=== PATIENT | male | born 1955 | race Caucasian/White ===

== ENCOUNTER 2017-04-03 11:38 | Day surgery (SDC) | payer OTHER ==
[~2017-04-03] VITALS: Ht 177.8 cm; Wt 124.0 kg
[~2017-04-03 11:38] MED LIST: ASPI1TAB7 PO; ISOS60 PO; LIPI80TA16 PO; LISI-357 PO; METO25 PO; NITR0.4S SL; PROT40TA PO
[2017-04-03] MEDS ORDERED: NS 1000P @30 MLS/HR (KVO) IV SCH (12:00)
[2017-04-03 12:27] VITALS: BP 123/78; PULSE 82; RESP 18; O2SAT 96
[2017-04-03 12:29] LABS: AUTOMATED NEUTROPHIL # 4.3 TH/MM3 (1.8-7.7); BASOPHIL % 0.4 % (0.0-2.0); EOSINOPHIL # 0.1 TH/MM3 (0-0.4); EOSINOPHIL % 1.8 % (0.0-4.0); HEMO FLAGS DIFF FINAL; LYMPH % 28.1 % (9.0-44.0); MEAN CELL VOLUME 83.6 FL (80.0-100.0); MEAN CORPUSCULAR HEMOGLOBIN 28.3 PG (27.0-34.0); MEAN CORPUSCULAR HGB CONC 33.9 % (32.0-36.0); MONO % 9.2 % (0.0-8.0); NEUT % 60.5 % (16.0-70.0); PLATELET COUNT 176 TH/MM3 (150-450); RED BLOOD COUNT 5.38 MIL/MM3 (4.50-5.90); RED CELL DISTRIBUTION WIDTH 13.8 % (11.6-17.2); WHITE BLOOD COUNT 7.1 TH/MM3 (4.0-11.0)
[2017-04-03] MEDS ORDERED: NITR1SUB3 SL (12:37)
[2017-04-03] MEDS ORDERED: ISOS120T PO (12:37)
[2017-04-03] MEDS ORDERED: HYDR-3516 PO (12:37)
[2017-04-03] MEDS ORDERED: COZA25TA PO (12:37)
[2017-04-03] MEDS ORDERED: ASPI81TA11 PO (12:37)
[2017-04-03] MEDS ORDERED: METO50TA PO (12:37)
[2017-04-03] MEDS ORDERED: LIPI40TA PO (12:37)
[2017-04-03 12:38] LABS: APTT (PATIENT) 28.7 SEC (24.3-30.1); PROTHROMBIN TIME - PATIENT 10.8 SEC (9.8-11.6)
[2017-04-03 12:53] LABS: BICARBONATE 28.7 MEQ/L (21.0-32.0); POTASSIUM 4.5 MEQ/L (3.5-5.1)
[2017-04-03] MEDS ORDERED: MIDAZOLAM HCL 2 MG/2 ML VIAL ONE ×2 (13:29→14:17)
[2017-04-03] MEDS ORDERED: HEPARIN-NS/PF INJ 500 ML ONE (13:29)
[2017-04-03] MEDS ORDERED: IOHEXOL 350 MG/ML 100 ML BTL (for Cath Lab) OTHER ONE (14:50)
--- NOTE | 2017-04-03 15:00 | CATHPROC ---
Summize HIS Report Study Information Study Number Admission Scheduled Start Study Start 1005-17 04/03/2017 04/03/2017 Apr 03 2017 1:30PM Study Type [place] Service Left Heart Cath Cardiac Catheterization Referring Institution Admit Source Facility Department 1 Other [facility] Compliance Manager Physician and Clinical Staff Initial Grey Desai Tear Down Matcher Lilliana Kahn,TORI Other Christy Rivera RN Recorder Aixa Maier,RT(R) Scrub Zafar Nj RCIS(BS) Procedures Performed Procedure Location (Site) Vessel Name Angiogram LV LV Ventricle Coronary Angiograms LCA Left Coronary Coronary Angiograms RCA Right Coronary Coronary Angiograms MCNEIL-LAD Left Coronary Coronary Angiograms SVG-OM CIRC Coronary Angiograms Gft. Stump 1 SVG Graft Coronary Angiograms Gft. Stump 2 SVG Graft Wire insertion Fem Art (right) Femoral Art Wire insertion Fem Vein (right) Femoral Vein Equipment Time Vocational Rehabilitation Counselor Description Size Mfg Part Number Used/Scraped [id number] 13:39 PATE RIVERA SWAN ALDO CATHETER FR 7 Used *[id number] TRANSDUCER, TRUWAVE 13:39 PATE RIVERA * [id number] Used W/STOCKCOCK TRANSDUCER, TRUWAVE 13:39 PATE RIVERA * [id number] Used W/STOCKCOCK [id number] 14:39 CARDIVA MEDICAL VASCADE, FR6 CLOSURE SYSTEM FR 6\7 Used *[id number] [id number] *[id number] 534-648T *[id number] 534-660T *[id number] 534-620T *[id number] 534-621T *[id number] 534-642T *[id number] 13:39 MEDLINE INDUSTRIES PACK, CCL CUSTOM * Used *[id number] 13:39 MEDLINE PACER PEN, SKIN DUAL W/ RULER * [id number] Used [id number] 13:39 Topix MEDICAL SHEATH, FR6.5 PRELUDE 11CM FR 6.5 [id number] Used *[id number] 13:39 Topix MEDICAL WIRE, 3MMJ .035 180CM 180CM Used *[id number] 14:21 Topix MEDICAL WIRE, EXCHANGE 260CM 3MMJ 260CM Used *[id number] 13:39 NAMIC MANIFOLD, 2 PORT * Used *[id number] 13:39 NAMIC MANIFOLD, 4 PORT * Used *[id number] 13:58 NYCOMED OMNIPAQUE, 350 MG, 100ML 100ML [id number] Used 13:39 NYCOMED OMNIPAQUE, 350 MG, 150ML 150ML [id number] Used [id number] 13:39 KWONG MEDICAL BLANKET,WARM AIR CCL * Used *[id number] 13:39 TERUMO MEDICAL SHEATH, FR7 TERUMO (10CM) FR 7 [id number] Used History: Current Medications Medication Dosage/Unit Route Frequency Last Date/Time Taken 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 Imdur History: Allergies Allergy Reaction No Known Allergies Lisinopril History: Risk Factors Family History of Hypertension Dyslipidemia Previous [place] Previous Heart Failure Premature CAD Yes Yes Yes Yes No Prior Valve Prior PCI Prior CABG Prior CABGDate Surgery No No Yes 09/10/2001 Cerebrovascular Peripheral Artery Chronic Lung On Dialysis Diabetes Disease Disease Disease No No No No No History: Symptoms/Diagnosis Selection Items SOB History: CV Disease Selection Items Known CAD History: Stress Tests Stress or Imaging Studies Performed No History: Other Disease Selection Items CAD HTN History: Other Current Smoker Method Quit Packs a Day Years Used Pack Years No Cigarettes 16 Years Ago 1 30 30 Labs Hgb (g/dl) Hct (%) RBC (MIL/MM3) WBC (l/cumm) Platelets (thousands) 12.00-18.00 37.00-55.00 4.80-6.20 4.80-10.80 140.00-450.00 15.2 45 5.3 7.1 176 Glucose (mg/dl) BUN (mg/dl) Creatinine (mg/dl) BUN:Creatinine (1:x) 60.00-110.00 8.00-20.00 0.10-9.00 10.00-20.00 109 18 1.1 16.4 Na (meq/l) K (meq/l) Cl (meq/l) CO2 (mmol/L) Ca (mg/dl) 138.00-146.00 3.80-5.10 101.00-111.00 23.00-30.00 9.00-10.50 140 4.9 108 28.7 9.2 PT (sec) PTT (sec) INR (PTT:PT) 9.40-11.40 25.10-32.70 0.50-2.00 10.8 28.7 1 CPK-MB (ng/ML) 0.00-7.00 Not Drawn Medication Medication Total Dose (Bolus/Oral) Medication Total Dosage/Unit 1% XYLOCAINE 20 mL RADIAL COCKTAIL 5 mL (Bolus) VERSED 3 mg Medications (Bolus/Oral) Medication Time Given Dosage/Unit Administered By Reason 1% XYLOCAINE 04/03/2017 1:58:06 PM 20 mL Grey Cormier Patient arrived on 20 mL 1% XYLOCAINE given by Grey Cormier in Right Groin via Subcutaneous. VERSED 04/03/2017 1:58:11 PM 2 mg Lilliana Kahn Patient arrived on 2 mg VERSED given by Lilliana Kahn RN via Peripheral IV. VERSED 04/03/2017 2:18:59 PM 1 mg Lilliana Kahn Patient arrived on 1 mg VERSED given by Lilliana Kahn RN via Peripheral IV. RADIAL COCKTAIL 04/03/2017 2:23:15 PM 5 mL (Bolus) Lilliana Kahn Patient arrived on 5 mL (Bolus) RADIAL COCKTAIL given by Lilliana Kahn RN via Radial. Using [Solu tion Name]. Medication (Drip) Medication Time Given Dosage/Unit Concentration/Unit Diluent (ml) Solution IV Solutions 04/03/2017 1:33:37 PM 0 mL (IV) 500 NaCl .9 Patient arrived on IV Solutions in Left Antecubital via Peripheral IV. Pump/Drip Flow = 20 ml/hr usin g NaCl .9. Initial Case Assessment Cardiovascular HR Rhythm NIBP Chest Pain 77 REG 130/79 0 Edema Present Skin color Skin None Normal Warm Circulatory - Right Pulses Dorsalis Pedis Femoral 1 1 Scale (0,1,2,3,4,d) Circulatory - Left Pulses Dorsalis Pedis Femoral 1 1 Scale (0,1,2,3,4,d) Circulatory - Lower Extremities Color Lower Right Color Lower Left Normal Normal Neurological State Oriented to time-place- Alert Moves all extremities person Respiration - General Respiration Rate SpO2 (%) (B/min) 10 98 Final Case Assessment Cardiovascular HR Rhythm NIBP Chest Pain 88 REG 120/71 0 Edema Present Skin color Skin None Normal Warm Circulatory - Right Pulses Dorsalis Pedis Femoral 1 1 Scale (0,1,2,3,4,d) Circulatory - Left Pulses Dorsalis Pedis Femoral 1 1 Scale (0,1,2,3,4,d) Circulatory - Lower Extremities Color Lower Right Color Lower Left Normal Normal Neurological State Oriented to time-place- Alert Moves all extremities person Respiration - General Respiration Rate SpO2 (%) (B/min) 20 96 Chronological Log Time Study Chronological Log 13:25:40 Patient arrived via Bed. 13:26:15 Patient Name, D.O.B, / Armband Verified By R.N. 13:27:29 Pre-op and post- op instructions given; patient acknowledges understanding of instructions. 13:28:34 Verbal Stimulation=2 Physical Stimulation=2 Airway=2 Respiration=2 TOTAL=8. (0=absent, 1=li mited, 2=present) 13:28:41 Patient has been NPO for More than 6Hrs. 13:29:45 Skin Breakdown- Vitals capture started with the following parameters, Patient=Adult, Interval=5 min, Initial Pr ealyyz=764 mmHg, 13:32:15 Deflation Rate=5 mmHg 13:32:20 Patient Warmer Placed on the Table. 13:32:26 A # 20 IV was noted in the Antecubital (left). Grade = 0 13:32:52 HR=81 bpm, MYYY=176/79 mmhg, SpO2=98.0 %, Resp=14 B/min, Pain=0, Hortencia=10, Carrillo=2 13:33:37 Patient arrived on IV Solutions in Left Antecubital via Peripheral IV. Pump/Drip Flow = 20 ml/hr using NaCl .9. 13:34:27 History and physical on the chart or being dictated. Assessment: Initial Case, HR=77 BPM, Rhythm=REG, SRTC=310/79 mmhg, Chest Pain=0, Edema=None, Color=Normal, Skin = Warm Right Pulses: Ramos Ped=1, Femoral=1 Left Pulses: Ramso Ped=1, Femoral=1 13:34:30 Lower Right Extremities: Color=Normal Lower Left Extremities: Color=Normal Neurological: State=Alert, Ox3, GRAY Respiration: Resp=10 B/min, SpO2=98 % 13:34:33 Reference ECG taken 13:36:53 Bilateral groins prepped with 2% chlorhexidine, and with a 3 min. waiting time. 13:37:51 HR=77 bpm, BVRZ=926/72 mmhg, SpO2=98.0 %, Resp=12 B/min, Pain=0, Hortencia=10, Carrillo=2 13:40:15 Pressure channel 1 zeroed. 13:42:45 Pressure channel 2 zeroed. 13:42:50 HR=77 bpm, ILSS=283/77 mmhg, SpO2=98.0 %, Resp=11 B/min, Pain=0, Hortencia=10, Carrillo=2 13:45:22 MD arrived. 13:47:51 HR=78 bpm, OAWI=496/74 mmhg, SpO2=98.0 %, Resp=14 B/min, Pain=0, Hortencia=10, Carrillo=2 13:50:58 MD paged 13:52:48 HR=81 bpm, PHRL=514/75 mmhg, SpO2=97.0 %, Resp=12 B/min, Pain=0, Hortencia=10, Carrillo=2 Time Out. Correct patient, correct procedure,correct physician, ,power injector not loaded with contrast with surgical 13:57:20 team present. Time Out Concurred by MD, individual staff and BLOOD BANK SPECIALIST in procedure Time Out #2 - Consents verified, patient in correct position, all results are labled and displa yed, safety precautions 13:57:23 taken. Time Out concurred by MD, individual staff and BLOOD BANK SPECIALIST in procedure. 13:57:44 Case Start 13:57:51 HR=78 bpm, PNDC=607/79 mmhg, SpO2=97.0 %, Resp=9 B/min, Pain=0, Hortencia=10, Carrillo=2 13:58:06 Patient arrived on 20 mL 1% XYLOCAINE given by Grey Cormier in Right Groin via Subcutaneous . 13:58:11 Patient arrived on 2 mg VERSED given by Lilliana Kahn, TORI via Peripheral IV. 14:00:33 Access site was Right Femoral Artery. 14:00:38 A wire was inserted via Fem Art (right). 14:00:42 A SHEATH, FR6.5 PRELUDE 11CM FR 6.5 was advanced into the Fem Art (right) using the Percuta neous technique. 14:01:10 Access site was Right Femoral Vein. 14:01:15 A wire was inserted via Fem Vein (right). 14:01:32 A SHEATH, FR7 TERUMO (10CM) FR 7 was advanced into the Fem Vein (right) using the Percutane ous technique. 14:02:03 A SWAN ALDO CATHETER FR 7 was inserted via Fem Vein (right) 14:02:52 HR=84 bpm, GQZV=020/76 mmhg, SpO2=98.0 %, Resp=11 B/min, Pain=0, Hortencia=10, Carrillo=2 Recorded Pressure: PCW, HR=85, Condition=Condition 1 14:02:56 (Pulmonary Capillary Wedge) PCW 23/10/10 Recorded Pressure: MPA, HR=79, Condition=Condition 1 14:03:11 (Main Pulmonary Artery) MPA 14:03:39 Saturation: Site=PA (Pulmonary Artery) , O2=79 %, Hgb=15.2 gm/dl, Condition=Condition 1. Us ed in calculation. Thermo CO: CO=6.1 l/m, HR=80 bpm, Condition=Condition 1. Used in calculation. 14:04:22 Equipment: Description and Size=SWAN ALDO CATHETER FR 7, Type=Bath Probe, CC=0.579 Injectant: Temp=19.0 - 22.0 Celsius, Volume=10.0 ml Thermo CO: CO=6.0 l/m, HR=81 bpm, Condition=Condition 1. Used in calculation. 14:04:58 Equipment: Description and Size=SWAN ALDO CATHETER FR 7, Type=Bath Probe, CC=0.579 Injectant: Temp=19.0 - 22.0 Celsius, Volume=10.0 ml 14:05:12 Saturation: Site=Ao (Aorta) , O2=94.5 %, Hgb=15.2 gm/dl, Condition=Condition 1. Used in rohit culation. Thermo CO: CO=6.0 l/m, HR=81 bpm, Condition=Condition 1. Used in calculation. 14:05:52 Equipment: Description and Size=SWAN ALDO CATHETER FR 7, Type=Bath Probe, CC=0.579 Injectant: Temp=19.0 - 22.0 Celsius, Volume=10.0 ml Recorded Pressure: RV, HR=85, Condition=Condition 1 14:06:41 (Right Ventricle) RV 30//6 Recorded Pressure: RA, HR=82, Condition=Condition 1 14:06:56 (Right Atrium) RA 97/5 14:07:36 Saturation: Site=RA (Right Atrium) , O2=77.6 %, Hgb=15.2 gm/dl, Condition=Condition 1. Used in calculation. 14:07:51 HR=78 bpm, VZUQ=768/66 mmhg, SpO2=96.0 %, Resp=17 B/min, Pain=0, Hortencia=10, Carrillo=2 14:07:55 Forest Aldo Catheter Removed A JL 4.0 INFINITI CATHETER FR 6 was advanced over a wire. OMNIPAQUE, 350 MG, 150ML 150ML was us ed for 14:08:53 injections. Recorded Pressure: Ao, HR=83, Condition=Condition 1 14:09:36 (Aorta) Ao 101/64/79 14:09:51 The LCA was injected and visualized at various angles. OMNIPAQUE, 350 MG, 150ML 150ML used . 14:10:25 POWER INJECTOR LOADED NOW BY Malinda KAHN AND VERIFIED BY Leah NJ 14:11:00 Catheter was removed A 3DRC INFINITI CATHETER FR 6 was advanced over a wire. OMNIPAQUE, 350 MG, 150ML 150ML was used for 14:11:06 injections. 14:12:45 The SVG-OM was injected and visualized at various angles. OMNIPAQUE, 350 MG, 150ML 150ML us ed. 14:12:50 HR=87 bpm, XFIF=228/71 mmhg, SpO2=96.0 %, Resp=9 B/min, Pain=0, Hortencia=10, Carrillo=2 14:15:19 Catheter was removed A JR 4.0 INFINITI CATHETER FR 6 was advanced over a wire. OMNIPAQUE, 350 MG, 150ML 150ML was us ed for 14:16:28 injections. 14:17:49 HR=85 bpm, KBZU=239/76 mmhg, SpO2=95.0 %, Resp=18 B/min, Pain=0, Hortencia=10, Carrillo=2 14:18:59 Patient arrived on 1 mg VERSED given by Lilliana Kahn RN via Peripheral IV. 14:19:12 The MCNEIL-LAD was injected and visualized at various angles. OMNIPAQUE, 350 MG, 150ML 150ML used. 14:20:52 A WIRE, EXCHANGE 260CM 3MMJ 260CM was inserted via Fem Art (right). 14:21:42 Wire removed 14:21:51 Catheter was removed A KEKE INFINITI CATHETER FR 6 was advanced over a wire. OMNIPAQUE, 350 MG, 150ML 150ML was used for 14:22:17 injections. 14:22:54 HR=84 bpm, NPEP=165/68 mmhg, SpO2=96.0 %, Resp=18 B/min, Pain=0, Hortencia=10, Carrillo=2 14:23:15 Patient arrived on 5 mL (Bolus) RADIAL COCKTAIL given by Lilliana Kahn RN via Radial. U sing [Solution Name]. 14:23:20 The MCNEIL-LAD was injected and visualized at various angles. OMNIPAQUE, 350 MG, 150ML 150ML used. 14:23:52 Catheter was removed A MPA-2 INFINITI CATHETER FR 6 was advanced over a wire. OMNIPAQUE, 350 MG, 150ML 150ML was use d for 14:24:07 injections. 14:25:29 The Gft. Stump 1 was injected and visualized at various angles. OMNIPAQUE, 350 MG, 150ML 15 0ML used. 14:27:47 The Gft. Stump 2 was injected and visualized at various angles. OMNIPAQUE, 350 MG, 150ML 15 0ML used. 14:27:49 HR=80 bpm, GFMJ=860/61 mmhg, SpO2=98.0 %, Resp=10 B/min, Pain=0, Hortencia=10, Carrillo=2 14:28:18 A WIRE, 3MMJ .035 180CM 180CM was inserted via Fem Art (right). Recorded Pressure: LV, HR=81, Condition=Condition 1 14:29:13 (Left Ventricle) LV 158/9/18 14:29:33 The LV was injected at 10 cc/sec for a total of 30. OMNIPAQUE, 350 MG, 150ML 150ML used. Recorded Pressure: LV, Ao, HR=81, Condition=Condition 1 14:29:41 (Left Ventricle) LV 157/8/20, (Aorta) Ao 104/58/77 14:30:16 Catheter was removed A AR MOD INFINITI CATHETER FR 6 was advanced over a wire. OMNIPAQUE, 350 MG, 150ML 150ML was us ed for 14:31:21 injections. 14:32:53 HR=80 bpm, YEVE=150/72 mmhg, SpO2=94.0 %, Resp=15 B/min, Pain=0, Hortencia=10, Carrillo=2 14:33:08 The RCA was injected and visualized at various angles. OMNIPAQUE, 350 MG, 150ML 150ML use d. 14:37:52 HR=85 bpm, GDRI=165/71 mmhg, SpO2=96.0 %, Resp=15 B/min, Pain=0, Hortencia=10, Carrillo=2 Assessment: Final Case, HR=88 BPM, Rhythm=REG, LVQM=135/71 mmhg, Chest Pain=0, Edema=None, Col or=Normal, Skin = Warm Right Pulses: Ramos Ped=1, Femoral=1 Left Pulses: Ramos Ped=1, Femoral=1 14:38:38 Lower Right Extremities: Color=Normal Lower Left Extremities: Color=Normal Neurological: State=Alert, Ox3, GRAY Respiration: Resp=20 B/min, SpO2=96 % 14:39:07 Catheter(s) removed without difficulty 14:39:36 VASCADE, FR6 CLOSURE SYSTEM FR 6\7 placement in the Fem Art (right) 14:39:52 Sterile dressing applied to site 14:39:53 No case complications noted. 14:39:54 Cine recording checked. 14:40:28 Case End 14:42:53 HR=85 bpm, YXHJ=219/75 mmhg, SpO2=95.0 %, Resp=13 B/min, Pain=0, Hortencia=10, Carrillo=2 14:43:19 Sheath removed; pressure applied to access site. Leah NJ 14:46:36 Bedside Report will be given. 14:46:39 Contrast Scanned 14:46:42 Verbal Stimulation=2 Physical Stimulation=2 Airway=2 Respiration=2 TOTAL=8. (0=absent, 1=l imited, 2=present) 14:46:55 A Left and Right Heart Cath was performed. 14:47:56 HR=80 bpm, BXVD=750/75 mmhg, SpO2=97.0 %, Resp=12 B/min, Pain=0, Hortencia=10, Carrillo=2 14:52:42 Vitals capture stopped. End Study - Contrast Media Used In Study Contrast Total Opened (mL) Total Used (mL) Total Wasted (mL) Omnipaque 125 125 0 End Study - Maximum Contrast Load Max Contrast Load (mL) 563.6 End Study - Radiation Exposure Fluoro Time (minutes) 14.1 End Study - Sheaths Sheaths Pulled By Sheath Hold Time (min) Grey Cormier End Study - Patient Disposition Complications Transferred To No Outpatient Bed
[2017-04-03] MEDS ORDERED: SODIUM CHLOR 0.9% 1000 ML INJ 1,000 ML IV ONE (15:01)
[2017-04-03] MEDS ORDERED: ATROPINE SULFATE 1 MG/ML VIAL IVP PRN (15:15)
[2017-04-03] MEDS ORDERED: ACETAMINOPHEN/HYDROcodone 325 MG/5 MG TAB PO PRN (15:15)
[2017-04-03] MEDS ORDERED: ONDANSETRON HCL 4 MG/2 ML VIAL IV PRN (15:15)
[2017-04-03] MEDS ORDERED: SODIUM CHLOR 0.9% 250 ML INJ 250 ML IV PRN (15:15)
--- NOTE | 2017-04-03 16:55 | MA ---
cc: ADAJEFERSON DATE: 04/03/2017. PROCEDURES PERFORMED: Right and left heart catheterization, selective coronary and graft angiography, left ventriculography. PROCEDURE NOTE: The patient was brought to the cardiac catheterization laboratory in a fasting state after having signed informed consent. The right groin was prepped and draped as per policy and anesthetized with 1% lidocaine. Central venous access was obtained via the right femoral vein, and a 7-Andorran sheath placed. Arterial access was obtained via the right femoral artery and a 6-Andorran sheath placed. Coronary arteriography was performed using 6-Andorran Jluis left 4.0 and 6-Andorran Amplatz right modified catheters. The vein graft stumps to the right coronary system were engaged with a multipurpose catheter. The vein graft to the obtuse marginal was engaged with the progressive right catheter, and the left internal mammary artery graft was engaged using an KEKE catheter. Left ventriculography was done using a multipurpose catheter which was used to cross the aortic valve without difficulty. Right heart catheterization was done using a [place]-Mohsen catheter. There were no apparent immediate complications. His arteriotomy site was closed with VASCADE with the achievement of good hemostasis. Manual pressure was applied to the venotomy site. HEMODYNAMIC RESULTS: Right atrium mean equals 4. Right ventricle 29 with an end-diastolic pressure of less than 10. Pulmonary artery 30/ 14 with a mean of 19. Pulmonary capillary wedge mean equals 11. Left ventricle 157 with an end-diastolic pressure of 15. Aorta 103/58 with a mean of 76. There was an approximately 50 mmHg gradient across the aortic valve on pullback of a multipurpose catheter. OXYGEN SATURATIONS: 1. Aorta 94.5%. 2. Pulmonary artery 79.0%. 3. Right atrium 77.6%. CARDIAC OUTPUT: The cardiac output measured by thermodilution method was 6.0 liters per minute giving a cardiac index at 2.5 liters per minute per square meter. AORTIC VALVE DATA: The calculated aortic valve area using the thermodilution cardiac output was 0.79 cm2 with a mean transvalvular aortic gradient of 48 mmHg. CORONARY ARTERIOGRAPHY: The left main has mild up to 10% proximal disease. The left anterior descending is totally occluded proximally. The left circumflex has 25% proximal stenosis right at the takeoff of a severely diseased obtuse marginal which demonstrates some competitive flow. There is a very proximal obtuse marginal/ramus intermedius which is very small in caliber and has possibly up to 80% ostial stenosis. The right coronary artery is totally occluded proximally. There are very few homo-collaterals. There are also scant left anterior descending to distal right collaterals. GRAFT ANGIOGRAPHY: The left internal mammary artery to the LAD is widely patent. However, the mid LAD is totally occluded after the takeoff of the diagonal which has mild disease. There are some collaterals supplying the very distal LAD which is fairly small in caliber. Some collaterals are seen to the distal right coronary from the LAD. The vein graft to the posterior descending artery is totally occluded proximally. The Y-graft to the posterolateral branch and distal right coronary artery is totally occluded proximally. The vein graft to the obtuse marginal has a tubular 60% lesion in its midportion. LEFT VENTRICULOGRAPHY: Contrast injection of the left ventricle was done using a hand injection. It is somewhat suboptimal. There is a small area of apical akinesis. Ejection fraction is estimated at 55%. CONCLUSIONS: 1. Severe three-vessel [place] coronary artery disease. 2. Right dominant system. 3. Patent left internal mammary artery to the LAD although the [place] LAD is totally occluded distal to the anastomosis site, moderate to severe disease of the midportion of the vein graft to the obtuse marginal, totally occluded vein graft to the posterior descending artery, chronic total occlusion of the Y-graft to the posterolateral branch and distal right coronary. 4. Normal right-sided heart pressures and pulmonary capillary wedge pressure. 5. Severe aortic stenosis with a calculated aortic valve area of 0.8 cm2 and a mean transvalvular aortic gradient of 48 mmHg. 5. Overall normal left ventricular function with estimated ejection fraction of 55% MD SHITAL Garzon/LILO /2:52 PM /4:46 PM COREY
--- NOTE | 2017-04-03 17:14 | PD.CAR.PN ---
CVT Progress Note Subjective/Hospital Course: sts data discussed with pt RISK SCORES About the STS Risk Calculator Procedure: AV Replacement + CAB Risk of Mortality: 3.902% Morbidity or Mortality: 24.27% Long Length of Stay: 9.309% Short Length of Stay: 31.132% Permanent Stroke: 1.205% Prolonged Ventilation: 16.412% DSW Infection: 0.72% Renal Failure: 6.239% Reoperation: 9.331% Objective: Vital Signs Date Time Temp Pulse Resp B/P Pulse Ox O2 Delivery O2 Flow Rate FiO2 04/03/17 12:27 82 18 123/78 96 Labs: Laboratory Tests Test 04/03/17 12:10 White Blood Count 7.1 TH/MM3 (4.0-11.0) Red Blood Count 5.38 MIL/MM3 (4.50-5.90) Hemoglobin 15.2 GM/DL (13.0-17.0) Hematocrit 45.0 % (39.0-51.0) Mean Corpuscular Volume 83.6 FL (80.0-100.0) Mean Corpuscular Hemoglobin 28.3 PG (27.0-34.0) Mean Corpuscular Hemoglobin 33.9 % Concent (32.0-36.0) Red Cell Distribution Width 13.8 % (11.6-17.2) Platelet Count 176 TH/MM3 (150-450) Mean Platelet Volume 8.8 FL (7.0-11.0) Neutrophils (%) (Auto) 60.5 % (16.0-70.0) Lymphocytes (%) (Auto) 28.1 % (9.0-44.0) Monocytes (%) (Auto) 9.2 % (0.0-8.0) Eosinophils (%) (Auto) 1.8 % (0.0-4.0) Basophils (%) (Auto) 0.4 % (0.0-2.0) Neutrophils # (Auto) 4.3 TH/MM3 (1.8-7.7) Lymphocytes # (Auto) 2.0 TH/MM3 (1.0-4.8) Monocytes # (Auto) 0.7 TH/MM3 (0-0.9) Eosinophils # (Auto) 0.1 TH/MM3 (0-0.4) Basophils # (Auto) 0.0 TH/MM3 (0-0.2) CBC Comment DIFF FINAL Differential Comment Prothrombin Time 10.8 SEC (9.8-11.6) Prothromb Time International 1.0 RATIO Ratio Activated Partial 28.7 SEC Thromboplast Time (24.3-30.1) Sodium Level 140 MEQ/L (136-145) Potassium Level 4.5 MEQ/L (3.5-5.1) Chloride Level 106 MEQ/L (98-107) Carbon Dioxide Level 28.7 MEQ/L (21.0-32.0) Anion Gap 5 MEQ/L (5-15) Blood Urea Nitrogen 18 MG/DL (7-18) Creatinine 1.13 MG/DL (0.60-1.30) Estimat Glomerular Filtration 66 ML/MIN (>89) Rate Random Glucose 109 MG/DL (74-106) Calcium Level 9.2 MG/DL (8.5-10.1) Result Diagram: 04/03/17 1210 04/03/17 1210 Raine Stapleton April 03, 2017 17:14
--- NOTE | 2017-04-03 18:17 | MB ---
cc: ELIZABETH LOOMIS MD DATE OF CONSULTATION 04/03/17 1954 HISTORY OF PRESENT ILLNESS A 62-year-old male who has history of coronary artery disease with prior coronary artery bypass grafting [address] Banda, coronary artery bypass graft x5, prior history of myocardial infarction, has had since heart catheterization in 2004, 2012, underwent cardiac cath today which showed 10% left main, MCNEIL to the LAD was patent, diagonal 10%, circ was 25%, OM had 60% stenosis in the vein graft, RCA had 100% stenosis of the vein graft. The patient also has been followed for aortic valve stenosis. His last echo was February 24, 2017, showed an EF of 55%. The left atrium was mildly dilated, peak gradient of 78 with a mean gradient of 45 consistent with severe stenosis, mild to moderate mitral regurgitation, mild tricuspid regurgitation. We have been consulted to evaluate for redo coronary artery bypass graft x2, aortic valve replacement. PAST MEDICAL HISTORY 1. Aortic stenosis, 2. Coronary artery disease, prior [place], 3. Hyperlipidemia, 4. Hypertension. ALLERGIES LISINOPRIL - CAUSES A COUGH MEDICATIONS Home medications include 1. Aspirin 81 mg. 2. Cozaar 25 p.o. daily. 3. Hydrocodone p.r.n. 4. Imdur 120 p.o. daily. 5. Lipitor 40 p.o. daily. 6. Metoprolol 50. He takes 75 mg p.o. b.i.d. 7. Nitro p.r.n. FAMILY HISTORY Father at age 65 with a heart disease, also had history of CVA. Mother is alive at 89, relatively healthy. SOCIAL HISTORY The patient is , two children. He is currently in the process of getting retired from [employer], former smoker, smoked for 30 years, one to one and a half packs, quit 2000. Occasional alcohol. REVIEW OF SYSTEMS GENERAL: No night sweats, fever, heat and cold intolerance. SKIN: No psoriasis, itching or hives. HEENT: No blurred vision, hearing loss. RESPIRATORY: Positive for shortness of breath. No cough. CARDIOVASCULAR: Positive for chest pain with exertion. No paroxysmal nocturnal dyspnea. No orthopnea. GASTROINTESTINAL: No diarrhea, vomiting. GENITOURINARY: No burning frequency, urgency. 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 ENDOCRINE: No history of diabetes and/or hypothyroidism PHYSICAL EXAMINATION VITAL SIGNS: Blood pressure 120/70, heart rate of 82, respiratory rate 18, O2 sat 96% on room air. GENERAL: Patient is awake, alert in no acute distress HEENT: Head is normocephalic, atraumatic. Pupils equal and reactive. Oral mucosa pink, moist. NECK: Supple. No JVD. CARDIAC: Heart sounds S1-S2. He has a grade 2-3/6 systolic murmur, best noted at the right sternal border. LUNGS: Clear to auscultation. No wheezes, rales or rhonchi. ABDOMEN: Soft, nontender. No masses or organomegaly. EXTREMITIES: No cyanosis, clubbing or edema. LABORATORY DATA Hemoglobin of 15, hematocrit of 45, white cell count 7.1, platelet count of 176. Sodium 140, potassium 4.5, BUN 18, creatinine 1.13, INR 1.0. CARDIOLOGY STUDIES EKG shows sinus rhythm with a right bundle branch block and T-wave changes in the lateral leads. IMPRESSION This is a very pleasant 62-year-old male with history of coronary artery disease with prior bypass in 2000, also history of severe aortic stenosis. At this time, the cardiac films have been reviewed by Dr. Elizabeth Loomis. Procedures, alternatives and risks have been discussed with the patient. At this time, plan will be for redo coronary artery bypass grafting to the OM if possible and then to the RCA with aortic valve replacement. We will bring the patient back to the office on , April 10, for preoperative evaluation and then we will schedule and proceed with surgery thereafter. Dictated by MALGORZATA Landry MD JANIYA Rosas/ /5:02 PM /8:23 AM
[2017-04-03] MEDS ORDERED: ATORVASTATIN 40 MG TAB PO SCH (21:00)
[2017-04-03] MEDS ORDERED: METOPROLOL TARTRATE 50 MG TAB PO SCH (21:00)
[2017-04-04] MEDS ORDERED: LOSARTAN 25 MG TAB PO SCH (09:00)
[2017-04-04] MEDS ORDERED: ASPIRIN EC 81 MG TABEC PO SCH (09:00)
[2017-04-04] MEDS ORDERED: ISOSORBIDE MONONITRATE 60 MG TAB PO SCH (09:00)
--- NOTE | 2017-04-04 16:32 | EKG ---
Date Performed: 04/03/2017 Time Performed: 12:29:50 PTAGE: 62 years EKG: Sinus rhythm Right bundle branch block Inferior infarct - age undetermined Lateral ST-T changes are nonspecific W hen compared to previous tracing, right bundle branch block is Now present. Abnormal ECG PREVIOUS TRACING : 09/28/2013 05.19 DOCTOR: Perez Monroe Interpretating Date/Time 04/04/2017 16:31:31
== END 2017-04-03 17:21 | disposition home or self-care (01) ==
LOC: HDOC 11:38 → HDIC 11:39 → HDOC 17:21
PROVIDERS: ATTEND Internal Medicine Cardiovascular Disease
DX: I25.10 Atherosclerotic heart disease of native coronary artery without angina pectoris (principal); T82.897A Other specified complication of cardiac prosthetic devices, implants and grafts, initial encounter; I35.0 Nonrheumatic aortic (valve) stenosis; I25.82 Chronic total occlusion of coronary artery; I10 Essential (primary) hypertension; E78.5 Hyperlipidemia, unspecified; I25.2 Old myocardial infarction; Z79.82 Long term (current) use of aspirin; Z82.49 Family history of ischemic heart disease and other diseases of the circulatory system; Z87.891 Personal history of nicotine dependence; Z88.8 Allergy status to other drugs, medicaments and biological substances; Y83.2 Surgical operation with anastomosis, bypass or graft as the cause of abnormal reaction of the patient, or of later complication, without mention of misadventure at the time of the procedure
CPT/HCPCS: 80048; 82810; 85025; 85610; 85730; 93005; 93461; C1760; C1769; C1893; G0269; J1644; J2250; Q9967

== ENCOUNTER 2017-04-11 10:30 | Inpatient (IN) | payer OTHER ==
[~2017-04-11] VITALS: Ht 177.8 cm; Wt 132.5 kg
[~2017-04-11 10:30] MED LIST changes: -ASPI1TAB7 PO; +ASPI81TA11 PO; +COZA25TA PO; +HYDR-3516 PO; +ISOS120T PO; -ISOS60 PO; +LIPI40TA PO; -LIPI80TA16 PO; -LISI-357 PO; -METO25 PO; +METO50TA PO; -NITR0.4S SL; +NITR1SUB3 SL; -PROT40TA PO
[2017-04-24] VITALS (9 sets, daily range): BP systolic 76–188; BP diastolic 33–77; PULSE 30–77; RESP 12–20; TEMP 97.7–98.1; O2SAT 91–98
[2017-04-24] MEDS ORDERED: DEXMEDETOMIDINE INJ 50 ML IV ONE (05:00)
[2017-04-24] MEDS ORDERED: EPINEPHrine HCL (1:1000) 1 MG/ML VIAL IV ONE (05:00)
[2017-04-24] MEDS ORDERED: DEXTROSE 5% IN WATER 100ML INJ 100 ML IV ONE (05:00)
[2017-04-24] MEDS ORDERED: ceFAZolin 2 GM PREMIX 50 ML IV ONE (05:00)
[2017-04-24] MEDS ORDERED: NEOSTIGMINE METHYLSULFATE 10 MG/10 ML VIAL IV PUSH ONE (05:00)
[2017-04-24] MEDS ORDERED: NITROGLYCERIN-DEXTROSE INJ 250 ML IV ONE (05:00)
[2017-04-24] MEDS ORDERED: ACETAMINOPHEN 1000 MG/100 ML VIAL IV ONE (05:00)
[2017-04-24] MEDS ORDERED: AMINOCAPROIC ACID INJ 250 MG/ML 20 ML VIAL IV ONE ×2 (05:00→12:15)
[2017-04-24] MEDS ORDERED: HEPARIN SODIUM - SQ 10,000 UNITS/ML VIAL SQ ONE (05:00)
[2017-04-24] MEDS ORDERED: VECURONIUM BROMIDE 10 MG VIAL IV ONE ×2 (05:00→12:15)
[2017-04-24] MEDS ORDERED: CALCIUM CHLORIDE 10% SOLN 1 GRAM/10 ML SYR IV ONE ×2 (05:00→17:30)
[2017-04-24] MEDS ORDERED: ARTIFICIAL TEARS OPTH OINT 3.5 APPLIC/3.5 GM TUBO ONE (05:00)
[2017-04-24] MEDS ORDERED: PROTAMINE SULFATE 250 MG/25 ML VIAL IV ONE ×2 (05:00→12:15)
[2017-04-24] MEDS ORDERED: GLYCOPYRROLATE 0.2 MG/ML VIAL IV ONE (05:00)
[2017-04-24] MEDS ORDERED: MAGNESIUM SULFATE 1000 MG/2 ML VIAL (PED) IV ONE (05:00)
[2017-04-24] MEDS ORDERED: METOPROLOL TARTRATE 25 MG TAB PO SCH (06:00)
[2017-04-24] MEDS ORDERED: CEFAZOLIN 500 MG in NS IRR BTL 500 ML IRRIGATION SCH (06:00)
[2017-04-24] MEDS ORDERED: POVIDONE IODINE 5% (ANTISEPSIS KIT) 4 APPLICATIONS EACH NARE PRN (06:00)
[2017-04-24] MEDS ORDERED: CHLORHEXIDINE GLUCONATE 2 % 1 PACK (2 CLOTHS) TOPICAL PRN (06:00)
[2017-04-24] MEDS ORDERED: INSULIN REGULAR 100 UNITS in NS 100 ML IV SCH (06:00)
[2017-04-24] MEDS ORDERED: CHLORHEXIDINE GLUCONATE 4% SOLN 120 ML BTL TOPICAL SCH (06:00)
[2017-04-24] MEDS ORDERED: CEFAZOLIN IV SCH ×2 (06:00)
[2017-04-24] MEDS ORDERED: NS IV SCH ×2 (06:00)
[2017-04-24] MEDS ORDERED: PAPAVERINE 60 MG-NITROGLYCERIN 100 MCG-DILTIAZEM 100 MG in NS 100 ML IRRIGATION SCH ×4 (06:00)
[2017-04-24] MEDS ORDERED: LACTATED RINGER'S 1000 ML IV PRN (06:00)
[2017-04-24] MEDS ORDERED: BACTOIN EACH NARE (06:17)
[2017-04-24] MEDS ORDERED: METO-426 PO (06:17)
[2017-04-24] MEDS ORDERED: FISHCAP4 PO (06:18)
[2017-04-24] MEDS ORDERED: MULTTAB67 PO (06:18)
[2017-04-24] MEDS ORDERED: VANCOMYCIN HCL 1000 MG VIAL ONE (06:32)
[2017-04-24] MEDS ORDERED: methylPREDNISolone SOD SUCC 125 MG/2 ML VIAL ONE (06:32)
[2017-04-24] MEDS ORDERED: HEPARIN SODIUM - SQ 10,000 UNITS/ML VIAL ONE (06:32)
[2017-04-24] MEDS ORDERED: POTASSIUM CHLORIDE 40 MEQ/20 ML VIAL ONE (07:14)
[2017-04-24] MEDS ORDERED: HEPARIN SODIUM - IV 10,000 UNITS/10 ML VIAL ONE (07:14)
[2017-04-24] MEDS ORDERED: CUSTODIOL HTK IRR SOLN 1,000 ML ONE (07:14)
[2017-04-24] MEDS ORDERED: SODIUM BICARBONATE 8.4% INJ 50 ML ONE ×2 (07:15→16:33)
[2017-04-24] MEDS ORDERED: ALBUMIN HUMAN 25% 12.5 GM/50 ML BAGP IV ONE (07:15)
[2017-04-24] MEDS ORDERED: MANNITOL INJ 50 ML ONE (07:15)
[2017-04-24] MEDS ORDERED: ceFAZolin INJ 1,000 MG VIAL ONE (07:22)
[2017-04-24 08:18] LABS: MRSA PCR NEGATIVE (NEGATIVE); STAPH AUREUS PCR NEGATIVE (NEGATIVE)
[2017-04-24] MEDS: MUPIROCIN 2% OINT 22 GM TUBE EACH NARE SCH ×2 (09:00→21:00)
[2017-04-24] MEDS: ceFAZolin 2 GM PREMIX 50 ML ONE ×2 (12:00→15:52)
[2017-04-24] MEDS ORDERED: LACTATED RINGER'S 1000 ML INJ 1,000 ML IV ONE (12:15)
[2017-04-24] MEDS ORDERED: NITROGLYCERIN 50 MG/DEXTROSE 5% SOLN 250 ML BTL IV ONE (12:15)
[2017-04-24] MEDS ORDERED: VECURONIUM BROMIDE 20 MG VIAL IV ONE (12:15)
[2017-04-24] MEDS ORDERED: NORMOSOL R INJ 1,000 ML IV ONE (12:15)
[2017-04-24] MEDS ORDERED: SODIUM CHLOR 0.9% 250 ML INJ 500 ML IV ONE (12:15)
[2017-04-24] MEDS ORDERED: LACTATED RINGER'S 1000 ML INJ 500 ML IV PRN (15:55)
[2017-04-24] MEDS ORDERED: METOPROLOL TARTRATE 5 MG/5 ML VIAL IV PUSH PRN (16:00)
[2017-04-24] MEDS ORDERED: RESP: RACEPINEPHRINE 2.25% 0.5 ML NEB NEB PRN ×2 (16:00→19:15)
[2017-04-24] MEDS ORDERED: CALCIUM CHLORIDE INJ 1 GM in SODIUM CHLORIDE 0.9% INJ 100 ML IV PRN (16:00)
[2017-04-24] MEDS ORDERED: SODIUM CHLORIDE 0.9% FLUSH 10 ML FLUSH IV FLUSH PRN (16:00)
[2017-04-24] MEDS ORDERED: ONDANSETRON HCL 4 MG/2 ML VIAL IV PUSH PRN (16:00)
[2017-04-24] MEDS ORDERED: ACETAMINOPHEN 325 MG TAB PO PRN (16:00)
[2017-04-24] MEDS ORDERED: POTASSIUM CHLORIDE 20 MEQ CONTROLLED RELEASE TAB PO PRN ×2 (16:00)
[2017-04-24] MEDS ORDERED: INSULIN REGULAR (IV INFUSION) 100 UNITS in SODIUM CHLORIDE 0.9% INJ 99 ML IV SCH (16:00)
[2017-04-24] MEDS ORDERED: DEXTROSE 50% IN WATER 50 ML VIAL(D50) IV PUSH PRN (16:00)
[2017-04-24] MEDS ORDERED: MAGNESIUM SULFATE INJ 2 GM in SODIUM CHLORIDE 0.9% INJ 100 ML IV PRN ×4 (16:00)
[2017-04-24] MEDS ORDERED: Post-op Orders (for Pharmacy) MISC OTHER ONE (16:00)
[2017-04-24] MEDS ORDERED: CALCIUM CHLORIDE 10% 1 GRAM/10 ML VIAL IV PRN (16:00)
[2017-04-24] MEDS ORDERED: CLEVIDIPINE INJ 50 ML IV SCH (16:00)
[2017-04-24] MEDS ORDERED: POTASSIUM CHLOR 20 MEQ PREMIX 100 ML IV PRN ×3 (16:00)
[2017-04-24] MEDS ORDERED: ACETAMINOPHEN 650 MG SUPP RECTAL PRN (16:00)
--- NOTE | 2017-04-24 16:16 | PD.OP ---
cc: Elizabeth Loomis MD; Grey Cormier MD Operative Report Date of Surgery: Apr 24, 2017 Preoperative Diagnosis: (1) Coronary artery disease (2) Shortness of breath (3) Aortic stenosis due to bicuspid aortic valve Postoperative Diagnosis: same Procedure: REDO sternotomy for REDO CABG, AVR with a 25 Intuity tissue valve SVG to PDA EVH (right leg) VICKI Anesthesia: Dr. Marie Surgeon: Elizabeth Loomis Tool Trouble Shooter(s): Bharathi Chappell Operation and Findings: Findings: The patient had a heavily functionally bicuspid aortic valve with fusion of the right and left cusps. The PDA target was good. At the conclusion of the procedure, intraoperative VICKI showed a well-seated aortic valve with no perivalvular leaks. Left ventricular function was normal. Disposition: The patient was transferred to the CVICU in stable, but guarded condition. Operation in detail: After adequate general anesthesia, the patient was prepped and draped in the usual manner. A median sternotomy was performed and electrocautery was used to obtain hemostasis and carry dissection down to the anterior sternal table. An oscillating saw was used to divide the sternum with care not to disrupt the underlying tissue. Dense adhesions were encountered throughout the mediastinum and around the heart. Old vein grafts were carefully protected as they were encountered. Approximately 2-3 hours were spent on lysing adhesions and the previously placed MCNEIL graft was carefully protected and temporarily occluded during the crossclamp time. Right greater saphenous vein was procured using a minimally invasive technique. The vein was prepared for anastomosis and the leg wound was irrigated and closed in 2 layers. The heart was instrumented for cardiopulmonary bypass in the usual manner. Antegrade Custodiol cardioplegia was used. The left ventricle was vented through the right superior pulmonary vein. The patient was placed on cardiopulmonary bypass and target vessels were identified. An aortic cross- clamp was applied and the heart was arrest is using Custodiol cardioplegia. After adequate arrest, the PDA was opened with a [place] blade and found to be a 1.5 millimeter good target. The saphenous vein was approximated to the artery using a running 7-0 Prolene suture. The vein was measured for length and orientation and suspended from the pericardium. The OM artery was too small to graft where it could be accessed. The aorta was opened above the sinotubular ridge in a manner to avoid the other vein grafts. The valve was found to be trileaflet with fusion of the right and left coronary cusp. There was heavy calcification. Aortic valve was excised sharply and the annulus was decalcified using rongeurs. The annulus was sized to a 25 Intuity bioprosthetic valve which was balloon deployed. The aorta was repaired in 2 layers using running 4-0 Prolene suture. The patient was placed in steep Trendelenburg position. The aorta was vented and the proximal anastomosis to the PDA graft was performed using a running 5-0 Prolene suture after creating an aortotomy with a 5 millimeter punch. The aorta and left ventricle were vented and the aortic cross-clamp was removed for a total cross-clamp time of 136 minutes. The heart resumed a bradycardic rhythm which eventually converted to a sinus rhythm after several minutes. The heart was filled allowed to eject. The aortic valve replacement was then assessed by intraoperative VICKI. The valve was found to be well seated with no perivalvular leak. Left ventricular function was noted to be normal. The patient was weaned from cardiopulmonary bypass for total bypass run of 226 minutes. Protamine was administered to reverse the heparin and all cannulae were removed without incident. A 36 [place]an mediastinal/ 32 [place]an right pleural chest tubes were positioned and each was secured to the skin with a 0 silk suture. The operative field was then examined again for hemostasis which was obtained using electrocautery. The wound was then closed in layers by approximating the sternal tables with interrupted number 6 stainless steel wires following which the presternal fashion was approximately around a 1. PDS suture. The wound was copiously irrigated. The subcutaneous tissue was approximated using a running 2-0 Vicryl suture and the skin was approximated with running 4-0 Monocryl subcuticular stitch. All sponge and instrument counts were correct at the close of the procedure and the patient was transported the CVICU in stable, but guarded condition. Elizabeth Loomis M.D., F.A.C.C., F.A.C.S. Elizabeth Loomis MD Apr 24, 2017 16:16
[2017-04-24] MEDS ORDERED: ALBUMIN HUMAN 25% 25 GM/100 ML BAGP IV ONE (16:23)
[2017-04-24] MEDS: ceFAZolin 2 GM PREMIX 50 ML IV SCH (17:00)
[2017-04-24] MEDS: ACETAMINOPHEN 1000 MG/100 ML VIAL IV SCH ×2 (17:00→22:26)
[2017-04-24] MEDS ORDERED: MIDAZOLAM HCL 5 MG/5 ML VIAL ONE (17:20)
[2017-04-24] MEDS ORDERED: fentaNYL CITRATE 1000 MCG/20 ML VIAL ONE (17:21)
[2017-04-24] MEDS ORDERED: CALCIUM CHLORIDE 10% SOLN 1 GRAM/10 ML SYR ONE (17:22)
[2017-04-24] MEDS ORDERED: SODIUM BICARBONATE 8.4% INJ 50 MEQ/50 ML SYR IV ONE ×2 (17:30→18:00)
--- NOTE | 2017-04-24 17:51 | RADRPT ---
EXAM DATE/TIME: 04/24/2017 17:13 [facility] COMPARISON: CHEST PA & LAT, September 27, 2013, 17:54. INDICATIONS : CABG MEDICAL HISTORY : Cardiovascular disease. SURGICAL HISTORY : CABG. ENCOUNTER: Initial ACUITY: 1 day PAIN SCORE: Non-responsive. LOCATION: Bilateral chest FINDINGS: The patient is post median sternotomy. The heart is enlarged. The ET tube, chest tube and right jugul ar line are all in good position. There is atelectatic change at the left lung base. Visualized bony structures are intact. CONCLUSION: 1. Atelectatic changes in the left lung base. 2. Support equipment in good position. Eren Alexander MD on April 24, 2017 at 17:45 Board Certified Radiologist. This report was verified electronically.
[2017-04-24] MEDS ORDERED: EPINEPHrine 2 MG/D5W 250 ML IV SCH ×2 (19:30)
[2017-04-24 19:47] LABS: HEMATOCRIT 30.7 % (39.0-51.0); MEAN CORPUSCULAR HGB CONC 33.4 % (32.0-36.0); PLATELET COUNT 134 TH/MM3 (150-450); RED BLOOD COUNT 3.65 MIL/MM3 (4.50-5.90); RED CELL DISTRIBUTION WIDTH 13.7 % (11.6-17.2); REVIEW FLAG FINAL; WHITE BLOOD COUNT 22.5 TH/MM3 (4.0-11.0)
[2017-04-24 19:59] LABS: INTERNATIONAL NORMALIZED RATIO 1.2 RATIO; PROTHROMBIN TIME - PATIENT 13.6 SEC (9.8-11.6)
[2017-04-24] MEDS: RESP: ALBUTEROL 2.5 MG/IPRATROPIUM 0.5 MG NEB (SCH) NEB (20:19)
[2017-04-24] MEDS: SODIUM CHLORIDE 0.9% FLUSH 10 ML FLUSH IV FLUSH SCH (22:25)
[2017-04-24] MEDS: ATORVASTATIN 40 MG TAB PO SCH (22:25)
[2017-04-24] MEDS ORDERED: ATROPINE SULFATE 1 MG/10 ML SYRINGE ONE (22:51)
[2017-04-25] VITALS (9 sets, daily range): BP systolic 113–179; BP diastolic 47–78; PULSE 45–126; RESP 18–22; TEMP 97.9–100.6; O2SAT 91–94
[2017-04-25] MEDS: ceFAZolin 2 GM PREMIX 50 ML IV SCH ×3 (01:19→17:52)
[2017-04-25 04:35] LABS: HEMATOCRIT 26.6 % (39.0-51.0); MEAN CELL VOLUME 85.2 FL (80.0-100.0); MEAN CORPUSCULAR HEMOGLOBIN 27.7 PG (27.0-34.0); MEAN CORPUSCULAR HGB CONC 32.6 % (32.0-36.0); PLATELET COUNT 106 TH/MM3 (150-450); RED BLOOD COUNT 3.12 MIL/MM3 (4.50-5.90); RED CELL DISTRIBUTION WIDTH 14.1 % (11.6-17.2); REVIEW FLAG FINAL; WHITE BLOOD COUNT 14.5 TH/MM3 (4.0-11.0)
[2017-04-25 04:50] LABS: APTT (PATIENT) 25.2 SEC (24.3-30.1); PROTHROMBIN TIME - PATIENT 11.1 SEC (9.8-11.6)
[2017-04-25] MEDS: RESP: ALBUTEROL 2.5 MG/IPRATROPIUM 0.5 MG NEB (SCH) NEB ×3 (04:56→20:56)
[2017-04-25 05:00] LABS: BICARBONATE 21.7 MEQ/L (21.0-32.0); MAGNESIUM 2.3 MG/DL (1.5-2.5); POTASSIUM 4.3 MEQ/L (3.5-5.1)
[2017-04-25] MEDS: PANTOPRAZOLE SOD 40 MG DELAYED RELEASE TAB PO SCH (05:18)
[2017-04-25] MEDS: ACETAMINOPHEN 1000 MG/100 ML VIAL IV SCH ×2 (05:18→10:19)
--- NOTE | 2017-04-25 05:43 | RADRPT ---
EXAM DATE/TIME: 04/25/2017 04:24 [facility] COMPARISON: CHEST SINGLE AP, April 24, 2017, 17:13. INDICATIONS : Post CABG. MEDICAL HISTORY : Cardiovascular disease. SURGICAL HISTORY : CABG. ENCOUNTER: Subsequent ACUITY: 3 days PAIN SCORE: Non-responsive. LOCATION: Bilateral chest FINDINGS: The cardiac silhouette is enlarged in transverse diameter. There is left lower lobe atelectasis versu s pneumonia. Endotracheal tube has been removed. There is no evidence of pneumothorax. CONCLUSION: 1. Postsurgical changes as above. There is no evidence of pneumothorax. Perez Ross MD on April 25, 2017 at 5:41 Board Certified Radiologist. This report was verified electronically.
[2017-04-25] MEDS ORDERED: BUMETANIDE INJ 1 MG/4 ML VIAL IV PUSH ONE (07:45)
[2017-04-25] MEDS ORDERED: ASPIRIN EC 81 MG TABEC PO SCH (09:00)
[2017-04-25] MEDS: MUPIROCIN 2% OINT 22 GM TUBE EACH NARE SCH ×2 (09:00→21:00)
[2017-04-25] MEDS ORDERED: MULTIVITAMIN TAB PO SCH (09:00)
[2017-04-25] MEDS: ASPIRIN 81 MG CHEW TAB PO SCH (09:18)
[2017-04-25] MEDS: SODIUM CHLORIDE 0.9% FLUSH 10 ML FLUSH IV FLUSH SCH ×2 (09:19→21:24)
--- NOTE | 2017-04-25 09:51 | PD.CAR.PN ---
CVT Progress Note CVT: POD #: 1 Subjective/Hospital Course: 62/ male hx of CAD/ prior CABG in 2000. C/o of exertional chest pressure and dyspnea over the past couple of months , + palpitations. Underwent cardiac cath by Dr Mobley 3 vessel [place] disease, patent MCNEIL> LAD totally occluded vein graft to PDA, chronic total occlusion y graft posterolateral branch and distal RCA , mod disease graft to OM / severe mean gradient of 48mmhg PMH: CAD/ BABG 2000, HTN, HLP surgery: 04/24 REDO sternotomy for REDO CABG x 1 , AVR with a 25 Intuity tissue valve, SVG to PDA, EVH (right leg), VICKI pump time 226min, 3000cc crystalloid , 1000cc cell saver, EBL 2000cc, s/p one pack of PLT, cryo extubated after surgery 04/25 pt had some tachy ankush arrhythmia last pm RBBB 3rd degree HB, placed on EPI post op , and Dopamine + 6 kg from surgery , IV bumex given weaning off Epi gtt, continue dopamine for now leave pt in CVICU for now will need aggressive pulm toileting, wean 02 as tolerated Objective: GENERAL: SKIN: Warm and dry.prevena to chest , incision to right leg HEAD: Normocephalic. EYES: No scleral icterus. No injection or drainage. NECK: Supple, trachea midline. No JVD or lymphadenopathy. CARDIOVASCULAR: right BBB, 3rd degree HB, intermittent sinus rhythm soft sm noted no gallops, or rubs. general edema RESPIRATORY: diminished in bases chest tube to wall suction ./ chest tube 1580 / 12 hrs/ no air leak Breath sounds equal bilaterally. No accessory muscle use. GASTROINTESTINAL: Abdomen soft, non-tender, nondistended. MUSCULOSKELETAL: No cyanosis, or edema. BACK: Nontender without obvious deformity. No CVA tenderness. Vital Signs Date Time Temp Pulse Resp B/P Pulse Ox O2 Delivery O2 Flow Rate FiO2 04/25/17 04:00 100.6 66 18 153/78 94 136/65 04/25/17 04:00 94 Simple Mask 10.00 04/25/17 04:00 126 04/25/17 00:30 93 Simple Mask 10.00 04/25/17 00:00 99.6 64 20 124/66 91 135/65 04/25/17 00:00 56 04/24/17 23:35 40 04/24/17 23:29 30 04/24/17 23:00 97 Nasal Cannula 6.00 04/24/17 20:19 97 Simple Mask 10.00 04/24/17 20:00 50 04/24/17 20:00 97.9 51 20 122/53 96 107/53 04/24/17 20:00 96 Simple Mask 10.00 04/24/17 20:00 96 Simple Mask 10.00 04/24/17 18:30 98.0 59 18 98 116/52 04/24/17 18:30 Simple Mask 10.00 04/24/17 18:30 95 Nasal Cannula 4.00 04/24/17 18:30 95 Nasal Cannula 4 04/24/17 18:10 45 04/24/17 18:10 95 45 04/24/17 17:09 97 80 04/24/17 16:55 97.7 44 12 108/59 91 76/33 04/24/17 16:55 Mechanical Ventilator 60 04/24/17 16:55 60 Labs: Laboratory Tests Test 04/24/17 04/25/17 21:37 04:10 Blood Bank Comment White Blood Count 14.5 TH/MM3 (4.0-11.0) Red Blood Count 3.12 MIL/MM3 (4.50-5.90) Hemoglobin 8.7 GM/DL (13.0-17.0) Hematocrit 26.6 % (39.0-51.0) Mean Corpuscular Volume 85.2 FL (80.0-100.0) Mean Corpuscular Hemoglobin 27.7 PG (27.0-34.0) Mean Corpuscular Hemoglobin 32.6 % Concent (32.0-36.0) Red Cell Distribution Width 14.1 % (11.6-17.2) Platelet Count 106 TH/MM3 (150-450) Mean Platelet Volume 9.6 FL (7.0-11.0) Prothrombin Time 11.1 SEC (9.8-11.6) Prothromb Time International 1.0 RATIO Ratio Activated Partial 25.2 SEC Thromboplast Time (24.3-30.1) Fibrinogen 261 mg/dL (227-377) Sodium Level 145 MEQ/L (136-145) Potassium Level 4.3 MEQ/L (3.5-5.1) Chloride Level 110 MEQ/L (98-107) Carbon Dioxide Level 21.7 MEQ/L (21.0-32.0) Anion Gap 13 MEQ/L (5-15) Blood Urea Nitrogen 29 MG/DL (7-18) Creatinine 1.88 MG/DL (0.60-1.30) Estimat Glomerular Filtration 36 ML/MIN (>89) Rate Random Glucose 158 MG/DL (74-106) Calcium Level 9.0 MG/DL (8.5-10.1) Magnesium Level 2.3 MG/DL (1.5-2.5) Result Diagram: 04/25/1740904/25/17409 Telemetry: HB> NSR> HB (1) Coronary artery disease (2) Aortic stenosis due to bicuspid aortic valve (3) S/P AVR (aortic valve replacement) (4) S/P CABG x 1 Plan: on ASA, no BB , statin pulm toileting OOB wean off EPI gtt as tolerated, continue Dopamine gtt for now for rate gentle diuresis leave in CVICU for now (5) Blood loss anemia Plan: recheck H&H at noon s/p cryo and plt 1580cc form chest tube (6) Heart bloc atrioventricular Plan: continue dopamine gtt for now (7) Acute kidney injury Plan: avoid nephrotoxins, monitor labs Raine Stapleton Apr 25, 2017 09:51
[2017-04-25] MEDS: DOPamine INJ PREMIX 500 ML IV SCH (10:22)
[2017-04-25 12:55] LABS: HEMATOCRIT 23.7 % (39.0-51.0)
[2017-04-25 12:59] LABS: REVIEW FLAG FINAL
[2017-04-25] MEDS ORDERED: SODIUM CHLOR 0.9% 250 ML INJ 250 ML IV ONE (14:30)
[2017-04-25] MEDS ORDERED: DEXTROSE 50% IN WATER 50 ML VIAL(D50) IV PRN (14:45)
[2017-04-25] MEDS ORDERED: BISACODYL 10 MG SUPP RECTAL PRN (14:45)
[2017-04-25] MEDS ORDERED: GLUCAGON 1 MG/ML VIAL OTHER PRN (14:45)
[2017-04-25] MEDS ORDERED: SOD PHOSPHATE/SOD BIPHOSPHATE (ADULT) ENEMA 133ML RECTAL PRN (14:45)
[2017-04-25] MEDS ORDERED: FUROSEMIDE 40 MG/4 ML VIAL ONE ×2 (15:34→17:53)
[2017-04-25] MEDS ORDERED: RESP: ALBUTEROL 2.5 MG/IPRATROPIUM 0.5 MG NEB (SCH) ONE (15:39)
[2017-04-25] MEDS: RESP: ALBUTEROL 2.5 MG/IPRATROPIUM 0.5 MG NEB (PRN) NEB (16:28)
[2017-04-25] MEDS: INSULIN ASPART SUPPLEMENTAL SCALE SQ SCH ×2 (17:55→22:21)
--- NOTE | 2017-04-25 20:13 | MB ---
cc: SYLVESTER FLAHERTY HANSCY M.D. DATE OF CONSULTATION: 04/25/2017. REASON FOR CONSULTATION: Electrophysiology study consultation for AV block. HISTORY OF PRESENT ILLNESS: Mr. Hurtado is a 62-year-old gentleman with history of coronary artery disease, coronary artery bypass grafting, aortic valve regurgitation, status post yesterday saphenous graft to the PDA and aortic valve replacement by Dr. Jones. Postprocedure the patient developed 2:1 AV block and episodes of complete AV dissociation. I was consulted for evaluation and management. The chart was reviewed. The patient was evaluated. I discussed the case with Dr. Jones, the patient's , the patient's son as well as the patient. ALLERGIES: None. SOCIAL HISTORY: Negative for smoking and drinking. FAMILY HISTORY: Noncontributory to his current medical condition. MEDICATIONS: 1. Insulin. 2. MiraLax. 3. Senokot. 4. Aspirin. 5. Dopamine IV. 6. Lipitor 40 milligrams a day. REVIEW OF SYSTEMS: He refers no chest pain, some shortness of breath. No vomiting. No fever. PHYSICAL EXAMINATION: GENERAL: Alert, fully oriented. VITAL SIGNS: His blood pressure is 114/54, pulse around 60 to 62, respiratory rate 20. LUNGS: Ventilated. CARDIOVASCULAR: S1 and S2 regular. Right internal jugular with a central line. Clean surgical wound. ABDOMEN: Abdomen soft, no mass, no bruits. Obese. EXTREMITIES: No edema. CARDIOLOGY STUDIES: Telemetry shows AV dissociation and PVCs. LABORATORY DATA: Hemoglobin 7.7. Potassium 4.3, creatinine 1.88. INR 1.0. ASSESSMENT AND RECOMMENDATIONS: Mr. Hurtado has some shortness of breath. Apparently he is just less than 24 hours post surgery. Hemoglobin was around 7.7. The patient has already received blood transfusion. His blood pressure is adequate. He is on minimal dose of dopamine. The gentleman is stable. I had a long conversation with him, his , his son and also a long conversation Dr. Jones. At this point, the gentleman is less than 24 hours post procedure. There may be inflammation that is causing the AV dissociation. The QRS is narrow. My recommendation at this point is observation. We are going to wait for 48-72 hours. If there is no resolution of the AV block, then the patient will need a pacemaker. Also, if there is a need for pacing and Isuprel cannot solve the bradycardia, then temporary pacing can be placed during the weekend. I am available over the phone. The nurse on the unit has my cell phone to call me if needed during the weekend. MD KATINA Bañuelos/LILO /4:29 PM /8:08 PM
[2017-04-25] MEDS: ATORVASTATIN 40 MG TAB PO SCH (21:18)
[2017-04-25] MEDS: SENNOSIDES 8.6 MG TAB PO SCH (21:23)
[2017-04-25] MEDS: DOCUSATE SODIUM 100 MG CAP PO SCH (21:23)
--- NOTE | 2017-04-25 22:22 | EKG ---
Date Performed: 04/25/2017 Time Performed: 09:29:36 PTAGE: 62 years EKG: Complete AV dissociation RBBB Abnormal ECG PREVIOUS TRACING : 04/25/2017 04.59 DOCTOR: Karlee Elliott Interpretating Date/Time 04/25/2017 22:20:24
--- NOTE | 2017-04-25 22:28 | EKG ---
Date Performed: 04/25/2017 Time Performed: 04:59:06 PTAGE: 62 years EKG: Sinus arrhythmia. Short MI interval Right bundle branch block Inferior infarct - age undete rmined Abnormal ECG PREVIOUS TRACING : 04/24/2017 17.11 DOCTOR: Karlee Elliott Interpretating Date/Time 04/25/2017 22:26:34
--- NOTE | 2017-04-25 22:43 | EKG ---
Date Performed: 04/24/2017 Time Performed: 17:11:12 PTAGE: 62 years EKG: Complete AV dissociation Leftward axis Right bundle branch block Lateral ST-T changes may b e due to myocardial ischemia Abnormal ECG PREVIOUS TRACING : 04/03/2017 12.29 DOCTOR: Karlee Elliott Interpretating Date/Time 04/25/2017 22:41:46
[2017-04-25] MEDS: ACETAMINOPHEN/HYDROcodone 325 MG/5 MG TAB PO PRN (23:41)
[2017-04-26] VITALS (12 sets, daily range): BP systolic 110–174; BP diastolic 44–88; PULSE 30–104; RESP 18–22; TEMP 97.8–99.3; O2SAT 88–97
[2017-04-26] MEDS: ceFAZolin 2 GM PREMIX 50 ML IV SCH (02:05)
[2017-04-26] MEDS: INSULIN ASPART SUPPLEMENTAL SCALE SQ SCH ×5 (02:17→23:14)
[2017-04-26] MEDS: RESP: ALBUTEROL 2.5 MG/IPRATROPIUM 0.5 MG NEB (PRN) NEB ×2 (02:59→13:27)
[2017-04-26 03:46] LABS: AUTOMATED NEUTROPHIL # 11.4 TH/MM3 (1.8-7.7); BASOPHIL % 0.2 % (0.0-2.0); HEMATOCRIT 27.3 % (39.0-51.0); LYMPHOCYTE # 1.8 TH/MM3 (1.0-4.8); MEAN CELL VOLUME 83.8 FL (80.0-100.0); MEAN CORPUSCULAR HEMOGLOBIN 29.2 PG (27.0-34.0); MEAN CORPUSCULAR HGB CONC 34.8 % (32.0-36.0); MONO % 9.9 % (0.0-8.0); NEUT % 77.9 % (16.0-70.0); PLATELET COUNT 61 TH/MM3 (150-450); RED BLOOD COUNT 3.26 MIL/MM3 (4.50-5.90); RED CELL DISTRIBUTION WIDTH 14.6 % (11.6-17.2); WHITE BLOOD COUNT 14.7 TH/MM3 (4.0-11.0)
[2017-04-26 03:51] LABS: HEMO FLAGS AUTO DIFF
[2017-04-26 04:21] LABS: BICARBONATE 26.7 MEQ/L (21.0-32.0); MAGNESIUM 2.2 MG/DL (1.5-2.5); POTASSIUM 4.1 MEQ/L (3.5-5.1)
--- NOTE | 2017-04-26 04:22 | RADRPT ---
EXAM DATE/TIME: 04/26/2017 03:06 [facility] COMPARISON: CHEST SINGLE AP, April 25, 2017, 4:24. INDICATIONS : Shortness of breath, possible pulmonary disease. MEDICAL HISTORY : Cardiovascular disease. SURGICAL HISTORY : CABG. ENCOUNTER: Subsequent ACUITY: 4 - 6 days PAIN SCORE: Non-responsive. LOCATION: Bilateral chest FINDINGS: A single view of the chest demonstrates right central line in superior vena cava. Central and right s ided chest tube. Mild basilar airspace disease. No pneumothorax. Previous median sternotomy and CABG. CONCLUSION: 1. Chest tubes and right central line unchanged. Basilar airspace disease not significantly changed s gissel April 25. Renzo Granado MD on April 26, 2017 at 4:19 Board Certified Radiologist. This report was verified electronically.
[2017-04-26 05:40] LABS: BANDS 9 % (0-6); MYELOCYTES 1 % (0-0); NEUTROPHIL # MANUAL DIFF 10.4 TH/MM3 (1.8-7.7); POLYS (SEG NEUTROPHILS) 61 % (16-70); WBC DIFF SAMPLE 100
[2017-04-26 05:41] LABS: PLATELET ESTIMATE SMEAR LOW (NORMAL); PLATELET MORPHOLOGY ENLARGED (NORMAL); SCAN/DIFF FINAL DIFF MANUAL
[2017-04-26] MEDS: PANTOPRAZOLE SOD 40 MG DELAYED RELEASE TAB PO SCH (06:00)
[2017-04-26] MEDS ORDERED: FUROSEMIDE 40 MG/4 ML VIAL ONE (06:11)
[2017-04-26] MEDS ORDERED: FUROSEMIDE 40 MG/4 ML VIAL IV PUSH ONE ×2 (06:30→19:30)
[2017-04-26] MEDS: RESP: ALBUTEROL 2.5 MG/IPRATROPIUM 0.5 MG NEB (SCH) NEB ×4 (07:30→23:55)
[2017-04-26] MEDS: DOCUSATE SODIUM 100 MG CAP PO SCH ×2 (08:28→21:00)
[2017-04-26] MEDS: MULTIVITAMINS/MINERALS THERAPEUTIC TAB PO SCH (08:28)
[2017-04-26] MEDS: ASPIRIN 81 MG CHEW TAB PO SCH (08:28)
[2017-04-26] MEDS: POLYETHYLENE GLYCOL 17 GM PKG PO SCH (08:29)
[2017-04-26] MEDS: MUPIROCIN 2% OINT 22 GM TUBE EACH NARE SCH ×2 (08:29→21:00)
[2017-04-26] MEDS: SODIUM CHLORIDE 0.9% FLUSH 10 ML FLUSH IV FLUSH SCH ×2 (08:29→21:40)
--- NOTE | 2017-04-26 09:11 | PD.CAR.PN ---
CVT Progress Note Subjective/Hospital Course: 62/ male hx of CAD/ prior CABG in 2000. C/o of exertional chest pressure and dyspnea over the past couple of months , + palpitations. Underwent cardiac cath by Dr Mobley 3 vessel [place] disease, patent MCNEIL> LAD totally occluded vein graft to PDA, chronic total occlusion y graft posterolateral branch and distal RCA , mod disease graft to OM / severe mean gradient of 48mmhg PMH: CAD/ BABG 2000, HTN, HLP surgery: 04/24 REDO sternotomy for REDO CABG x 1 , AVR with a 25 Intuity tissue valve, SVG to PDA, EVH (right leg), VICKI pump time 226min, 3000cc crystalloid , 1000cc cell saver, EBL 2000cc, s/p one pack of PLT, cryo extubated after surgery 04/25 pt had some tachy ankush arrhythmia last pm RBBB 3rd degree HB, placed on EPI post op , and Dopamine + 6 kg from surgery , IV bumex given weaning off Epi gtt, continue dopamine for now leave pt in CVICU for now will need aggressive pulm toileting, wean 02 as tolerated 04/26 Marginal oxygenation on 80% Diurese and incentive spirometry Monitor renal status Objective: Vital Signs Date Time Temp Pulse Resp B/P Pulse Ox O2 Delivery O2 Flow Rate FiO2 04/26/17 07:30 93 80 04/26/17 07:00 99.2 51 21 130/65 93 174/70 04/26/17 07:00 54 04/26/17 06:05 95 80 04/26/17 04:00 93 Non-Rebreather 04/26/17 03:55 91 Non-Rebreather 15.00 04/26/17 03:10 18 04/26/17 03:00 97.9 60 18 144/57 91 113/44 04/26/17 03:00 42 04/26/17 00:45 20 04/26/17 00:00 93 Simple Mask 10.00 04/25/17 23:00 60 04/25/17 23:00 98.8 60 18 175/70 94 127/47 04/25/17 20:56 93 Simple Mask 10.00 04/25/17 20:00 94 Simple Mask 10.00 04/25/17 19:00 98.7 45 18 150/75 94 149/54 04/25/17 19:00 45 04/25/17 16:00 95 Simple Mask 10.00 04/25/17 15:07 50 04/25/17 15:07 83 04/25/17 15:07 98.9 83 20 149/54 93 179/70 04/25/17 12:00 92 Simple Mask 10.00 04/25/17 11:31 50 04/25/17 11:31 98.3 50 22 130/52 93 147/56 Labs: Laboratory Tests Test 04/26/17 03:25 White Blood Count 14.7 TH/MM3 (4.0-11.0) Red Blood Count 3.26 MIL/MM3 (4.50-5.90) Hemoglobin 9.5 GM/DL (13.0-17.0) Hematocrit 27.3 % (39.0-51.0) Mean Corpuscular Volume 83.8 FL (80.0-100.0) Mean Corpuscular Hemoglobin 29.2 PG (27.0-34.0) Mean Corpuscular Hemoglobin 34.8 % Concent (32.0-36.0) Red Cell Distribution Width 14.6 % (11.6-17.2) Platelet Count 61 TH/MM3 (150-450) Mean Platelet Volume 10.2 FL (7.0-11.0) Neutrophils (%) (Auto) 77.9 % (16.0-70.0) Lymphocytes (%) (Auto) 12.0 % (9.0-44.0) Monocytes (%) (Auto) 9.9 % (0.0-8.0) Eosinophils (%) (Auto) 0.0 % (0.0-4.0) Basophils (%) (Auto) 0.2 % (0.0-2.0) Neutrophils # (Auto) 11.4 TH/MM3 (1.8-7.7) Lymphocytes # (Auto) 1.8 TH/MM3 (1.0-4.8) Monocytes # (Auto) 1.4 TH/MM3 (0-0.9) Eosinophils # (Auto) 0.0 TH/MM3 (0-0.4) Basophils # (Auto) 0.0 TH/MM3 (0-0.2) CBC Comment AUTO DIFF Differential Total Cells 100 Counted Neutrophils % (Manual) 61 % (16-70) Band Neutrophils % 9 % (0-6) Lymphocytes % 19 % (9-44) Monocytes % 10 % (0-8) Neutrophils # (Manual) 10.4 TH/MM3 (1.8-7.7) Myelocytes 1 % (0-0) Differential Comment FINAL DIFF MANUAL Platelet Estimate LOW (NORMAL) Platelet Morphology Comment ENLARGED (NORMAL) Sodium Level 141 MEQ/L (136-145) Potassium Level 4.1 MEQ/L (3.5-5.1) Chloride Level 105 MEQ/L (98-107) Carbon Dioxide Level 26.7 MEQ/L (21.0-32.0) Anion Gap 9 MEQ/L (5-15) Blood Urea Nitrogen 53 MG/DL (7-18) Creatinine 2.02 MG/DL (0.60-1.30) Estimat Glomerular Filtration 34 ML/MIN (>89) Rate Random Glucose 176 MG/DL (74-106) Calcium Level 8.3 MG/DL (8.5-10.1) Magnesium Level 2.2 MG/DL (1.5-2.5) Result Diagram: 04/26/17 0325 04/26/17 0325 (1) Coronary artery disease (2) Aortic stenosis due to bicuspid aortic valve (3) S/P AVR (aortic valve replacement) (4) S/P CABG x 1 Plan: on ASA, no BB , statin pulm toileting OOB wean off EPI gtt as tolerated, continue Dopamine gtt for now for rate gentle diuresis leave in CVICU for now (5) Blood loss anemia Plan: recheck H&H at noon s/p cryo and plt 1580cc form chest tube (6) Heart bloc atrioventricular Plan: continue dopamine gtt for now (7) Acute kidney injury Plan: avoid nephrotoxins, monitor labs Neetu Ansari MD Apr 26, 2017 09:11
[2017-04-26] MEDS: ACETAMINOPHEN/HYDROcodone 325 MG/5 MG TAB PO PRN ×2 (09:56→14:53)
--- NOTE | 2017-04-26 10:14 | PD.CONS ---
[facility] Service Critical Care Medicine Consult Requested By Dr. Ansari Reason for Consult Acute hypoxemic respiratory failure Primary Care Physician Unknown History of Present Illness 61-year-old female. Date of admission 04/24/2017. Date of consultation 04/26/2017. Past medical history includes coronary artery disease status post 5 vessel CABG [address] Banda, hypertension, dyslipidemia and spinal stenosis. Prior tobaccoism 45 pack years quit 2010 and EtOH use to 3 glasses of wine daily. Patient had a right and left heart catheterization ventilator Dr. Cormier Left main has 10% proximal disease. Left anterior descending is totally occlusive disease. The left circumflex was a 25% proximal stenosis right at the takeoff of the severely diseased obtuse marginal. 80% ostial stenosis of the obtuse marginal/ramus intermedius. Right coronary artery totally occluded proximally. Very few collaterals. The MCNEIL to LAD graft is patent. Mid LAD is included after takeoff of diagonal which is now disease. Some collaterals. The Y graft of the posterolateral branch and distal right coronary artery is totally included proximally. The vein graft to the obtuse marginal tubular 60% lesion midportion. Aortic stenosis mean gradient 45 On 04/24, patient had redo CABG sternotomy aVR 25Intuity tissue SVG to PDA EVH and VICKI Dr. Loomis. EBL 2000. Cell Saver 1000. Urine output 750. Crystalloid 3000. Post procedure, patient went to 3 AV block and currently with IV Zosyn. Dr. Abernathy was consulted. Recommended observation 48 hours postprocedure prior to any intervention. Recommended dopamine currently at 3 mics grams per kilogram per minute. Isuprel if needed and temporarily pacemaker if medication fails. Patient has developed some respiratory failure extubated to 10 L simple mask. Currently on BiPAP 12/5 at 60%. Saturations were 91%. Received 80 mg lasix IV 1. His x-ray revealed right IJ central line in place. Bilateral chest tubes. Currently on an due nebs every 6 hours and as needed. We were asked to assist in management. ABG is currently pending. At the present time, the patient is denying shortness of breath. Minimal sputum output. Denies chest pain. Review of Systems Constitutional: COMPLAINS OF: Fatigue, Weight loss, DENIES: Weight gain Endocrine: COMPLAINS OF: Polydipsia, Polyuria Ears, nose, mouth, throat: COMPLAINS OF: Tinnitus, Toothache Respiratory: COMPLAINS OF: Snoring, DENIES: Cough, Sputum production, Shortness of breath Cardiovascular: DENIES: Chest pain, Lower Extremity Edema Gastrointestinal: DENIES: Abdominal pain Genitourinary: COMPLAINS OF: Urinary frequency Musculoskeletal: COMPLAINS OF: Back pain, DENIES: Joint pain Integumentary: DENIES: Abnormal pigmentation Hematologic/lymphatic: DENIES: Bruising Immunologic/allergic: DENIES: Eczema Neurologic: DENIES: Headache Psychiatric: DENIES: Anxiety, Confusion, Mood changes Past Family Social History Allergies: Coded Allergies: No Known Allergies (Unverified , 04/24/17) Past Medical History Coronary artery disease Hypertension Dyslipidemia Spinal stenosis Prior tobaccoism Right bundle-branch block Past Surgical History CABG 5 with bilateral lower extremity graft harvest Redo CABG SVG to PDA/sternotomy aVR, T&A Reported Medications Cozaar 25 mg by mouth daily Fish oil/vitamin D 1200 mg/1000 units daily Lipitor 40 mg by mouth daily Aspirin 81 mg by mouth daily Metoprolol 75 mg by mouth twice a day Multivitamin 1 tablet daily [place] as needed Active Ordered Medications In EMR Family History Father from heart disease. Mother alive at 90 with few medical problems. Social History Quit tobacco 2000. 1.5 pack years 30 years. Drinks 2-3 glasses of wine daily. No IV drug use. Physical Exam Vital Signs Vital Signs Date Time Temp Pulse Resp B/P Pulse Ox O2 Delivery O2 Flow Rate FiO2 04/26/17 09:56 22 04/26/17 07:30 93 80 04/26/17 07:00 99.2 51 21 130/65 93 174/70 04/26/17 07:00 54 04/26/17 06:05 95 80 04/26/17 04:00 93 Non-Rebreather 04/26/17 03:55 91 Non-Rebreather 15.00 04/26/17 03:00 97.9 60 18 144/57 91 113/44 04/26/17 03:00 42 04/26/17 00:45 20 04/26/17 00:00 93 Simple Mask 10.00 04/25/17 23:00 60 04/25/17 23:00 98.8 60 18 175/70 94 127/47 04/25/17 20:56 93 Simple Mask 10.00 04/25/17 20:00 94 Simple Mask 10.00 04/25/17 19:00 98.7 45 18 150/75 94 149/54 04/25/17 19:00 45 04/25/17 16:00 95 Simple Mask 10.00 04/25/17 15:07 50 04/25/17 15:07 83 04/25/17 15:07 98.9 83 20 149/54 93 179/70 04/25/17 12:00 92 Simple Mask 10.00 04/25/17 11:31 50 04/25/17 11:31 98.3 50 22 130/52 93 147/56 Physical Exam GENERAL: 62-year-old male, resting in bed on BiPAP SKIN: Warm and dry. No rash HEAD: Atraumatic. Normocephalic. EYES: Pupils equal and round around 3 mm bilaterally and reactive. No scleral icterus. No injection or drainage. ENT: No nasal bleeding or discharge. Mucous membranes pink and moist. NECK: Trachea midline. No JVD. CARDIOVASCULAR: The cardiac, intervals of third-degree heart block A-V dissociation currently in sinus bradycardia no murmur RESPIRATORY: No accessory muscle use. Clear to auscultation. Breath sounds equal bilaterally. GASTROINTESTINAL: Abdomen soft, non-tender, nondistended. Hypoactive bowel sounds are appreciated MUSCULOSKELETAL: Extremities with trace lower extremity edema. No obvious deformities. NEUROLOGICAL: Awake and alert. No obvious cranial nerve deficits. Motor grossly within normal limits. Five out of 5 muscle strength in the arms and legs. Normal speech. PSYCHIATRIC: Appropriate mood and affect; insight and judgment normal. Laboratory Laboratory Tests Test 04/25/17 04/26/17 12:24 03:25 Hemoglobin 7.7 9.5 Hematocrit 23.7 27.3 White Blood Count 14.7 Red Blood Count 3.26 Mean Corpuscular Volume 83.8 Mean Corpuscular Hemoglobin 29.2 Mean Corpuscular Hemoglobin 34.8 Concent Red Cell Distribution Width 14.6 Platelet Count 61 Mean Platelet Volume 10.2 Neutrophils (%) (Auto) 77.9 Lymphocytes (%) (Auto) 12.0 Monocytes (%) (Auto) 9.9 Eosinophils (%) (Auto) 0.0 Basophils (%) (Auto) 0.2 Neutrophils # (Auto) 11.4 Lymphocytes # (Auto) 1.8 Monocytes # (Auto) 1.4 Eosinophils # (Auto) 0.0 Basophils # (Auto) 0.0 CBC Comment AUTO DIFF Differential Total Cells 100 Counted Neutrophils % (Manual) 61 Band Neutrophils % 9 Lymphocytes % 19 Monocytes % 10 Neutrophils # (Manual) 10.4 Myelocytes 1 Differential Comment FINAL DIFF MANUAL Platelet Estimate LOW Platelet Morphology Comment ENLARGED Sodium Level 141 Potassium Level 4.1 Chloride Level 105 Carbon Dioxide Level 26.7 Anion Gap 9 Blood Urea Nitrogen 53 Creatinine 2.02 Estimat Glomerular Filtration 34 Rate Random Glucose 176 Calcium Level 8.3 Magnesium Level 2.2 Result Diagram: 04/26/17 0325 04/26/17 0325 Imaging Last Impressions Chest X-Ray 04/26/17 0000 Signed Impressions: Service Date/Time: Friday, April 26, 2017 03:06 - CONCLUSION: 1. Chest tubes and right central line unchanged. Basilar airspace disease not significantly changed since April 25. Renzo Granado MD Assessment and Plan Assessment and Plan Neuro/Psych: Acetaminophen for fever [place] 5/325 as needed for pain management CV: Postop day #2 CABG/sternotomy with aVR 25 mm Infinity tissue SVG to PDA, EVH, VICKI Dr. Loomis Hypertension Dyslipidemia AV dissociation Currently on low-dose dopamine at 3 mcg/kg/m. Actually hypertensive. Followed by Dr. ABERNATHY - recommended monitoring 48 hours prior to any pacemaker placement) inflammation to go down. Isuprel if needed. Temporary VVI pacemaker if indicated. Currently on aspirin 81 mg daily. Continue On Lipitor 40 mg by mouth daily for disability. Continue Holding fish oil 1200 mg daily/not on formulary Holding metoprolol 75 mg by mouth twice a day in light of dysrhythmia Resp: Acute hypoxemic respiratory failure Prior tobaccoism Chest tube -700 cc serosanguineous. -20 cm H2O Diuresed with 80 mg IV Lasix 1. Recheck BMP this afternoon Chest x-ray revealed adequate placement chest tubes. CVP is 13-[address] on bronchodilator therapy every 4 hours with albuterol when necessary Currently on BiPAP 12/5 at 60%. Saturations between 90-92%. All chest x-ray in a.m. GI: : Clear liquid diet Protonix for GI prophylaxis Colace twice a day, MiraLAX, Senokot for bowel regimen : Ferreira catheter not indicated. Endo: Sliding-scale insulin with Accu-Cheks every 4 hours/per CT surgery to maintain tight glycemic control Renal: Acute kidney injury Creatinine baseline 1.1. Prior surgery 1.2. Monitor closely. Currently receiving diuretics. Avoid nephrotoxic drugs Recheck BMP in a.m. I'll check urine lites and eosinophils Heme: Leukocytosis Normocytic anemia Thrombocytopenia Received 1000 Cell Saver post surgery. No indication for transfusion of blood proximal at this time. Recheck CBC in a.m. ID: Monitor for infections Status post Ancef 2 g IV every 8 hours 5 dosages MSK: SS PT evaluate and treat FEN: Recheck potassium this afternoon light of dysrhythmia and recently Lasix usage Access - Right IJ cordis day #3 with dual-lumen catheter placed - Left radial art line day #3 Prophylaxis - GI - Protonix - DVT - RACHELLE/pharmacological prophylaxis when okay with CT surgery Critical care time 35 minutes Code Status Full code Discussed Condition With Patient. . Care plan discussed and all questions answered. Shantanu Mckenna MD Apr 26, 2017 10:14
--- NOTE | 2017-04-26 10:38 | PD.CARD.PN ---
Subjective Subjective Remarks PT without complaints Objective Medications Current Medications Medications (Trade) Dose Ordered Sig/Jermaine Route Start Time Stop Time Status Last Admin (NS Flush) 2 ml UNSCH PRN IV FLUSH 04/24/17 06:00 Mupirocin 1 applic 1 applic BID EACH NARE 04/24/17 09:00 04/28/17 08:59 04/25/17 09:00 (Lr 1000 ml Inj) 1,000 ml @ 30 mls/hr Q24H PRN IV 04/24/17 06:00 04/27/17 05:59 04/24/17 06:41 Sodium Chloride 2 ml 2 ml BID IV FLUSH 04/24/17 21:00 04/26/17 08:29 (Lr 1000 ml Inj) 500 ml @ 500 mls/hr Q1H PRN IV 04/24/17 15:55 (Aspirin Chew) 81 mg DAILY PO 04/25/17 09:00 04/26/17 08:28 (Protonix) 40 mg DAILY@06 PO 04/25/17 06:00 04/26/17 06:00 (Tylenol) 650 mg Q4H PRN PO 04/24/17 16:00 (fentaNYL INJ) 25 mcg Q1H PRN IV 04/24/17 16:00 04/26/17 08:28 (Zofran Inj) 4 mg Q6H PRN IV PUSH 04/24/17 16:00 04/24/17 23:45 (Apresoline Inj) 10 mg Q4H PRN IV 04/24/17 16:00 Metoprolol Tartrate 2.5 mg 2.5 mg Q1H PRN IV PUSH 04/24/17 16:00 Potassium Chloride 100 ml @ 50 mls/hr UNSCH PRN IV 04/24/17 16:00 Potassium Chloride 100 ml @ 50 mls/hr UNSCH PRN IV 04/24/17 16:00 Potassium Chloride 100 ml @ 50 mls/hr UNSCH PRN IV 04/24/17 16:00 04/24/17 18:17 Magnesium Sulfate 2 gm/Sodium Chloride 104 ml @ 100 mls/hr UNSCH PRN IV 04/24/17 16:00 (Magnesium Sulfate Inj/NS Inj) 104 ml @ 50 mls/hr UNSCH PRN IV 04/24/17 16:00 (Lipitor) 40 mg HS PO 04/24/17 21:00 04/25/17 21:18 Acetaminophen/ Hydrocodone Bitart 1 tab 1 tab Q4H PRN PO 04/24/17 16:00 04/26/17 09:56 Epinephrine HCl 2 mg/Dextrose 252 ml @ 0 mls/hr TITRATE IV 04/24/17 19:30 04/25/17 06:01 (DOPamine INJ PREMIX) 500 ml @ 14.794 mls/ hr UNSCH IV 04/25/17 07:45 04/25/17 10:22 (Colace) 100 mg BID PO 04/25/17 21:00 04/26/17 08:28 (Theragran M Tab) 1 tab DAILY PO 04/26/17 09:00 04/26/17 08:28 (Miralax) 17 gm DAILY PO 04/26/17 09:00 04/26/17 08:29 (Senokot) 8.6 mg HS PO 04/25/17 21:00 04/25/17 21:23 (Fleets Enema (Adult)) 133 ml UNSCH PRN RECTAL 04/25/17 14:45 (NovoLOG SUPPLEMENTAL SCALE) 1 02,06,10,14,18,22 SQ 04/25/17 18:00 04/26/17 17:59 04/26/17 06:00 (D50w (Vial) Inj) 50 ml UNSCH PRN IV 04/25/17 14:45 (Glucagon Inj) 1 mg UNSCH PRN OTHER 04/25/17 14:45 (NovoLOG SUPPLEMENTAL SCALE) 1 ACHS SQ 04/26/17 21:00 Vital Signs / I&O Vital Signs Date Time Temp Pulse Resp B/P Pulse Ox O2 Delivery O2 Flow Rate FiO2 04/26/17 09:56 22 04/26/17 07:30 93 80 04/26/17 07:00 99.2 51 21 130/65 93 174/70 04/26/17 07:00 54 04/26/17 06:05 95 80 04/26/17 04:00 93 Non-Rebreather 04/26/17 03:55 91 Non-Rebreather 15.00 04/26/17 03:00 97.9 60 18 144/57 91 113/44 04/26/17 03:00 42 04/26/17 00:45 20 04/26/17 00:00 93 Simple Mask 10.00 04/25/17 23:00 60 04/25/17 23:00 98.8 60 18 175/70 94 127/47 04/25/17 20:56 93 Simple Mask 10.00 04/25/17 20:00 94 Simple Mask 10.00 04/25/17 19:00 98.7 45 18 150/75 94 149/54 04/25/17 19:00 45 04/25/17 16:00 95 Simple Mask 10.00 04/25/17 15:07 50 04/25/17 15:07 83 04/25/17 15:07 98.9 83 20 149/54 93 179/70 04/25/17 12:00 92 Simple Mask 10.00 04/25/17 11:31 50 04/25/17 11:31 98.3 50 22 130/52 93 147/56 I/O 04/25/17 04/25/17 04/25/17 04/26/17 04/26/17 04/26/17 07:00 15:00 23:00 07:00 15:00 23:00 Intake Total 2257 ml 2730 ml 1194 ml Output Total 1720 ml 1110 ml 700 ml Balance 537 ml 1620 ml 494 ml Intake Oral 150 ml 780 ml 840 ml IV Total 2107 ml 1250 ml 354 ml Packed Cells 700 ml Output Urine Total 540 ml 460 ml 650 ml Chest Tube Drainage Total 1180 ml 650 ml 50 ml # Bowel Movements 0 0 0 Physical Exam GENERAL: Well developed, well nourished. No acute distress on BiPAP HEENT: Jugular venous pressure is normal. CHEST: Lungs decreased clear to auscultation bilaterally. Unlabored respiratory effort. CARDIAC: irregular rate and rhythm without S3, S4, or murmur. ABDOMEN: Soft, nontender, EXTREMITIES: No clubbing, cyanosis, mild edema. Laboratory Laboratory Tests Test 04/25/17 04/26/17 12:24 03:25 Hemoglobin 7.7 GM/DL 9.5 GM/DL Hematocrit 23.7 % 27.3 % White Blood Count 14.7 TH/MM3 Red Blood Count 3.26 MIL/MM3 Mean Corpuscular Volume 83.8 FL Mean Corpuscular Hemoglobin 29.2 PG Mean Corpuscular Hemoglobin 34.8 % Concent Red Cell Distribution Width 14.6 % Platelet Count 61 TH/MM3 Mean Platelet Volume 10.2 FL Neutrophils (%) (Auto) 77.9 % Lymphocytes (%) (Auto) 12.0 % Monocytes (%) (Auto) 9.9 % Eosinophils (%) (Auto) 0.0 % Basophils (%) (Auto) 0.2 % Neutrophils # (Auto) 11.4 TH/MM3 Lymphocytes # (Auto) 1.8 TH/MM3 Monocytes # (Auto) 1.4 TH/MM3 Eosinophils # (Auto) 0.0 TH/MM3 Basophils # (Auto) 0.0 TH/MM3 CBC Comment AUTO DIFF Differential Total Cells 100 Counted Neutrophils % (Manual) 61 % Band Neutrophils % 9 % Lymphocytes % 19 % Monocytes % 10 % Neutrophils # (Manual) 10.4 TH/MM3 Myelocytes 1 % Differential Comment FINAL DIFF MANUAL Platelet Estimate LOW Platelet Morphology Comment ENLARGED Sodium Level 141 MEQ/L Potassium Level 4.1 MEQ/L Chloride Level 105 MEQ/L Carbon Dioxide Level 26.7 MEQ/L Anion Gap 9 MEQ/L Blood Urea Nitrogen 53 MG/DL Creatinine 2.02 MG/DL Estimat Glomerular Filtration 34 ML/MIN Rate Random Glucose 176 MG/DL Calcium Level 8.3 MG/DL Magnesium Level 2.2 MG/DL Assessment and Plan Problem List: (1) Coronary artery disease Assessment and Plan: s/p redo AVR/ CABG- doing well, per CT surg (2) Aortic stenosis due to bicuspid aortic valve (3) S/P AVR (aortic valve replacement) (4) S/P CABG x 1 (5) Blood loss anemia (6) Heart bloc atrioventricular Assessment and Plan: CHB with HR in 50's; asymptomatic -continue observation for now, hopefully edema will go down an NSR will return (7) Acute kidney injury Denise Flores MD Apr 26, 2017 10:37
[2017-04-26] MEDS ORDERED: THIAMINE INJ 100 MG in SODIUM CHLORIDE 0.9% INJ 100 ML IV ONE (12:30)
[2017-04-26 13:16] LABS: BLOOD GAS BASE EXCESS 1.7 mmol/L (-2-2); BLOOD GAS CARBOXYHEMOGLOBIN 1.5 % (0-4); BLOOD GAS HCO3 26 mmol/L (22-26); BLOOD GAS METHEMOGLOBIN 1.2 % (0-2); BLOOD GAS O2 HGB SATURATION 93 % (90-100); BLOOD GAS PCO2 40 mmHg (38-42); BLOOD GAS PO2 86 mmHg (61-120); TEMP CORR TO 98.6
[2017-04-26 13:17] LABS: CRITICAL VALUE NO; DRAW SITE ART LINE; FIO2 60 %; OXYGEN DEVICE BIPAP; STAT NO; VENT SETTINGS EPAP6/PS6/IPAP12
[2017-04-26] MEDS: hydrALAZINE HCL 20 MG/ML VIAL IV PRN (15:03)
[2017-04-26] MEDS: DOPamine INJ PREMIX 500 ML IV SCH (15:18)
[2017-04-26 16:27] LABS: BICARBONATE 31.3 MEQ/L (21.0-32.0); POTASSIUM 3.8 MEQ/L (3.5-5.1)
[2017-04-26] MEDS ORDERED: POTASSIUM CHLOR 20 MEQ PREMIX 100 ML IV ONE ×2 (19:30→21:30)
[2017-04-26] MEDS ORDERED: POTASSIUM CHLORIDE 10 MEQ CONTROLLED RELEASE TAB PO ONE (19:30)
[2017-04-26] MEDS: SENNOSIDES 8.6 MG TAB PO SCH (21:00)
[2017-04-26] MEDS: ATORVASTATIN 40 MG TAB PO SCH (21:00)
[2017-04-26] MEDS: ISOPROTERENOL INJ 2 MG in DEXTROSE 5% IN WATER INJ 250 ML IV SCH ×2 (22:37)
[2017-04-27] VITALS (13 sets, daily range): BP systolic 110–139; BP diastolic 56–79; PULSE 0–135; RESP 18–22; TEMP 98.5–99.4; O2SAT 93–99
[2017-04-27] MEDS: RESP: ALBUTEROL 2.5 MG/IPRATROPIUM 0.5 MG NEB (SCH) NEB ×6 (03:33→23:57)
[2017-04-27 04:50] LABS: AUTOMATED NEUTROPHIL # 8.4 TH/MM3 (1.8-7.7); BASOPHIL % 0.1 % (0.0-2.0); HEMATOCRIT 25.7 % (39.0-51.0); LYMPH % 8.1 % (9.0-44.0); LYMPHOCYTE # 0.8 TH/MM3 (1.0-4.8); MEAN CELL VOLUME 84.9 FL (80.0-100.0); MEAN CORPUSCULAR HEMOGLOBIN 28.4 PG (27.0-34.0); MEAN CORPUSCULAR HGB CONC 33.4 % (32.0-36.0); MONO % 9.5 % (0.0-8.0); NEUT % 82.3 % (16.0-70.0); PLATELET COUNT 48 TH/MM3 (150-450); RED BLOOD COUNT 3.03 MIL/MM3 (4.50-5.90); RED CELL DISTRIBUTION WIDTH 14.5 % (11.6-17.2); WHITE BLOOD COUNT 10.1 TH/MM3 (4.0-11.0)
--- NOTE | 2017-04-27 04:52 | RADRPT ---
EXAM DATE/TIME: 04/27/2017 03:24 [facility] COMPARISON: CHEST SINGLE AP, April 26, 2017, 3:06. INDICATIONS : Evaluate after respiratory failure. MEDICAL HISTORY : Cardiovascular disease. SURGICAL HISTORY : CABG. ENCOUNTER: Subsequent ACUITY: 1 week PAIN SCORE: 8/10 LOCATION: Bilateral chest FINDINGS: Single AP view of the chest. Right IJ central venous catheter remains in place. Median sternotomy wir es. Cardiac silhouette is enlarged but unchanged. Left lower lobe consolidation versus atelectasis an d small left pleural effusion unchanged. CONCLUSION: No significant interval change. Mamadou Blair MD on April 27, 2017 at 4:50 Board Certified Radiologist. This report was verified electronically.
[2017-04-27 04:56] LABS: HEMO FLAGS AUTO DIFF
[2017-04-27 05:12] LABS: ANION GAP 7 MEQ/L (5-15); AST (GOT) 318 U/L (15-37); BLOOD UREA NITROGEN 43 MG/DL (7-18); CHLORIDE 104 MEQ/L (98-107); GLOMERULAR FILTRATION RATE 63 ML/MIN (>89); MAGNESIUM 2.4 MG/DL (1.5-2.5); SODIUM (NA) 140 MEQ/L (136-145)
[2017-04-27 05:14] LABS: ALT (GPT) 204 U/L (12-78)
[2017-04-27 05:15] LABS: ALKALINE PHOSPHATASE 48 U/L (45-117); TOTAL BILIRUBIN ADULT 0.7 MG/DL (0.2-1.0)
[2017-04-27] MEDS: PANTOPRAZOLE SOD 40 MG DELAYED RELEASE TAB PO SCH (05:28)
[2017-04-27] MEDS: INSULIN ASPART SUPPLEMENTAL SCALE SQ SCH ×4 (05:29→21:52)
[2017-04-27] MEDS: SODIUM CHLORIDE 0.9% FLUSH 10 ML FLUSH IV FLUSH PRN (05:30)
[2017-04-27] MEDS: ISOPROTERENOL INJ 2 MG in DEXTROSE 5% IN WATER INJ 250 ML IV SCH ×6 (05:31→17:10)
[2017-04-27 05:32] LABS: BANDS 5 % (0-6); NEUTROPHIL # MANUAL DIFF 8.7 TH/MM3 (1.8-7.7); WBC DIFF SAMPLE 100
[2017-04-27 05:33] LABS: CORRECTED NUCLEATED RBC 1 /100 WBC (0-0); PLATELET ESTIMATE SMEAR LOW (NORMAL); PLATELET MORPHOLOGY NORMAL (NORMAL); POLYS (SEG NEUTROPHILS) 81 % (16-70); SCAN/DIFF FINAL DIFF MANUAL
--- NOTE | 2017-04-27 06:15 | HHI.CCPN ---
Subjective Remarks/Hospital Course 61-year-old female. Date of admission 04/24/2017. Date of consultation 04/26/2017. Past medical history includes coronary artery disease status post 5 vessel CABG [address] Banda, hypertension, dyslipidemia and spinal stenosis. Prior tobaccoism 45 pack years quit 2010 and EtOH use to 3 glasses of wine daily. Patient had a right and left heart catheterization ventilator Dr. Cormier Left main has 10% proximal disease. Left anterior descending is totally occlusive disease. The left circumflex was a 25% proximal stenosis right at the takeoff of the severely diseased obtuse marginal. 80% ostial stenosis of the obtuse marginal/ramus intermedius. Right coronary artery totally occluded proximally. Very few collaterals. The MCNEIL to LAD graft is patent. Mid LAD is included after takeoff of diagonal which is now disease. Some collaterals. The Y graft of the posterolateral branch and distal right coronary artery is totally included proximally. The vein graft to the obtuse marginal tubular 60% lesion midportion. Aortic stenosis mean gradient 45 On 04/24, patient had redo CABG sternotomy aVR 25Intuity tissue SVG to PDA EVH and VICKI Dr. Loomis. EBL 2000. Cell Saver 1000. Urine output 750. Crystalloid 3000. Post procedure, patient went to 3 AV block and currently with IV Zosyn. Dr. Abernathy was consulted. Recommended observation 48 hours postprocedure prior to any intervention. Recommended dopamine currently at 3 mics grams per kilogram per minute. Isuprel if needed and temporarily pacemaker if medication fails. Patient has developed some respiratory failure extubated to 10 L simple mask. Currently on BiPAP 10/14 at 60%. Saturations were 91%. Received 80 mg lasix IV 1. His x-ray revealed right IJ central line in place. Bilateral chest tubes. Currently on an due nebs every 6 hours and as needed. We were asked to assist in management. ABG is currently pending. At the present time, the patient is denying shortness of breath. Minimal sputum output. Denies chest pain. Subjective 04/27: Afebrile. Currently on 100 percent nonrebreather. Breathing comfortable. X-ray essentially stable. Creatinine has stabilized. Early overnight, increasing long episodes of pauses. Isuprel currently at 5 mics grams initiated by cardiology. Objective Vital Signs Date Time Temp Pulse Resp B/P Pulse Ox O2 Delivery O2 Flow Rate FiO2 04/27/17 04:00 99 Non-Rebreather 04/27/17 00:00 125 20 120/57 04/26/17 20:30 50 04/26/17 20:00 6.00 04/26/17 20:00 97.8 Intake and Output 04/26/17 04/26/17 04/27/17 08:00 16:00 00:00 Intake Total 1194 ml 515 ml Output Total 700 ml 1560 ml Balance 494 ml -1045 ml Result Diagram: 04/27/17 0430 04/27/17 0430 Imaging Last Impressions Chest X-Ray 04/26/17 0000 Signed Impressions: Service Date/Time: Wednesday, April 26, 2017 03:06 - CONCLUSION: 1. Chest tubes and right central line unchanged. Basilar airspace disease not significantly changed since April 25. Renzo Granado MD Objective Remarks GENERAL: 62-year-old male, resting in bed on 100% nonrebreather SKIN: Warm and dry. No rash HEAD: Atraumatic. Normocephalic. EYES: Pupils equal and round around 3 mm bilaterally and reactive. No scleral icterus. No injection or drainage. ENT: No nasal bleeding or discharge. Mucous membranes pink and moist. NECK: Trachea midline. No JVD. CARDIOVASCULAR: Tachycardic, intervals of third-degree heart block A-V dissociation currently in sinus tachycardia. Currently no audible murmur RESPIRATORY: No accessory muscle use. Few scattered crackles appreciated. Breath sounds equal bilaterally. GASTROINTESTINAL: Abdomen soft, non-tender, protuberant. Hypoactive bowel sounds are appreciated MUSCULOSKELETAL: Extremities with trace lower extremity edema. No obvious deformities. NEUROLOGICAL: Awake and alert. No obvious cranial nerve deficits. Motor grossly within normal limits. Five out of 5 muscle strength in the arms and legs. Normal speech. PSYCHIATRIC: Appropriate mood and affect; insight and judgment normal. Urinary Catheter: No Assessment to: Continue Vascular Central Line Catheter: Yes Assessment to: Continue Date of Insertion: Apr 24, 2017 Line: Central Venous Catheter Side: Right Location: Internal, Jugular A/P Assessment and Plan Neuro/Psych: Acetaminophen for fever [place] 5/325 as needed for pain management Fentanyl 25 g as needed for breakthrough pain CV: Postop day #3 CABG/sternotomy with aVR 25 mm Infinity tissue SVG to PDA, EVH, VICKI Dr. Loomis Hypertension Dyslipidemia AV dissociation Currently on Isuprel at 5 mcg/m for overdrive. Followed by Dr. ABERNATHY - recommended monitoring 48 hours prior to any pacemaker placement) inflammation to go down. Isuprel if needed. Temporary VVI pacemaker if indicated. Currently on aspirin 81 mg daily. Continue On Lipitor 40 mg by mouth daily for dyslipidemia. Continue Holding fish oil 1200 mg daily/not on formulary Holding metoprolol 75 mg by mouth twice a day in light of dysrhythmia Resp: Acute hypoxemic respiratory failure Prior tobaccoism Chest tube -60 cc serosanguineous. -20 cm H2O Diuresed with 40 mg IV Lasix 1. Recheck BMP this afternoon Chest x-ray revealed adequate placement chest tubes. CVP is around 10 Continue on bronchodilator therapy every 4 hours with albuterol nebulizers every 2 hours when necessary Currently on 100% nonrebreather. Saturations 99%. Wean to partial nonrebreather. Follow-up chest x-ray in a.m. GI: Clear liquid diet Protonix for GI prophylaxis Colace twice a day, MiraLAX, Senokot for bowel regimen : Ferreira catheter not indicated. Endo: Sliding-scale insulin with Accu-Cheks every 4 hours/per CT surgery to maintain tight glycemic control Renal: Acute kidney injury - resolving Creatinine baseline 1.1. Prior surgery 1.2.. Currently 1.17 Monitor closely. Currently receiving diuretics. Avoid nephrotoxic drugs Recheck BMP in a.m. Urine eosinophils negative Heme: Normocytic anemia Thrombocytopenia Received 1000 Cell Saver post surgery. No indication for transfusion of blood products at this time. Recheck CBC in a.m. ID: Monitor for infections Status post Ancef 2 g IV every 8 hours 5 dosages MSK: SS PT evaluate and treat FEN: Recheck potassium this afternoon light of dysrhythmia and recently Lasix usage Access - Right IJ cordis day #4 with dual-lumen catheter placed - Left radial art line day #4 Prophylaxis - GI - Protonix - DVT - RACHELLE/pharmacological prophylaxis when okay with CT surgery Critical care time 35 minutes Shantanu Mckenna MD Apr 27, 2017 06:15
[2017-04-27] MEDS ORDERED: POTASSIUM CHLORIDE 20 MEQ CONTROLLED RELEASE TAB PO ONE (06:30)
[2017-04-27] MEDS ORDERED: POTASSIUM CHLOR 20 MEQ PREMIX 100 ML IV ONE (06:30)
[2017-04-27] MEDS ORDERED: FUROSEMIDE 40 MG/4 ML VIAL IV PUSH ONE (06:30)
[2017-04-27] MEDS: ASPIRIN 81 MG CHEW TAB PO SCH (08:44)
[2017-04-27] MEDS: FOLIC ACID 1 MG TAB PO SCH (08:44)
[2017-04-27] MEDS: DOCUSATE SODIUM 100 MG CAP PO SCH ×2 (08:44→21:11)
[2017-04-27] MEDS: MULTIVITAMINS/MINERALS THERAPEUTIC TAB PO SCH (08:44)
[2017-04-27] MEDS: SODIUM CHLORIDE 0.9% FLUSH 10 ML FLUSH IV FLUSH SCH ×2 (08:45→21:11)
[2017-04-27] MEDS: POLYETHYLENE GLYCOL 17 GM PKG PO SCH (08:45)
[2017-04-27] MEDS: THIAMINE INJ 100 MG in SODIUM CHLORIDE 0.9% INJ 100 ML IV SCH (08:45)
[2017-04-27] MEDS: MUPIROCIN 2% OINT 22 GM TUBE EACH NARE SCH ×2 (08:45→21:00)
--- NOTE | 2017-04-27 09:24 | PD.CAR.PN ---
CVT Progress Note Subjective/Hospital Course: 62/ male hx of CAD/ prior CABG in 2000. C/o of exertional chest pressure and dyspnea over the past couple of months , + palpitations. Underwent cardiac cath by Dr Mobley 3 vessel [place] disease, patent MCNEIL> LAD totally occluded vein graft to PDA, chronic total occlusion y graft posterolateral branch and distal RCA , mod disease graft to OM / severe mean gradient of 48mmhg PMH: CAD/ BABG 2000, HTN, HLP surgery: 04/24 REDO sternotomy for REDO CABG x 1 , AVR with a 25 Intuity tissue valve, SVG to PDA, EVH (right leg), VICKI pump time 226min, 3000cc crystalloid , 1000cc cell saver, EBL 2000cc, s/p one pack of PLT, cryo extubated after surgery 04/25 pt had some tachy ankush arrhythmia last pm RBBB 3rd degree HB, placed on EPI post op , and Dopamine + 6 kg from surgery , IV bumex given weaning off Epi gtt, continue dopamine for now leave pt in CVICU for now will need aggressive pulm toileting, wean 02 as tolerated 04/26 Marginal oxygenation on 80% Diurese and incentive spirometry Monitor renal status 04/27 Doing better this am. Had significant episodes of long conduction pauses yesterday. Appreciate cardiology and [employer]ing input Weaning Oxygen as tolerated Objective: Vital Signs Date Time Temp Pulse Resp B/P Pulse Ox O2 Delivery O2 Flow Rate FiO2 04/27/17 07:41 98.6 120 22 135/59 98 137/75 04/27/17 07:40 120 04/27/17 07:39 98 Simple Mask 6.00 04/27/17 07:30 97 Simple Mask 6.00 04/27/17 05:55 0 04/27/17 04:00 99 Non-Rebreather 04/27/17 04:00 99.4 120 18 110/56 99 04/27/17 00:00 125 20 120/57 94 04/27/17 00:00 94 Non-Rebreather 04/27/17 00:00 124 04/26/17 20:30 96 Bi-Pap 50 04/26/17 20:30 97 50 04/26/17 20:00 88 Nasal Cannula 6.00 04/26/17 20:00 97.8 104 20 170/80 88 127/58 04/26/17 18:13 20 04/26/17 16:52 22 04/26/17 16:00 94 50 04/26/17 15:00 30 04/26/17 15:00 92 Bi-Pap 50 04/26/17 15:00 99.3 96 22 142/69 92 167/88 04/26/17 13:28 90 50 04/26/17 11:00 42 04/26/17 11:00 99.0 75 22 152/68 95 126/56 04/26/17 11:00 93 Bi-Pap 80 Labs: Laboratory Tests Test 04/27/17 04:30 White Blood Count 10.1 TH/MM3 (4.0-11.0) Red Blood Count 3.03 MIL/MM3 (4.50-5.90) Hemoglobin 8.6 GM/DL (13.0-17.0) Hematocrit 25.7 % (39.0-51.0) Mean Corpuscular Volume 84.9 FL (80.0-100.0) Mean Corpuscular Hemoglobin 28.4 PG (27.0-34.0) Mean Corpuscular Hemoglobin 33.4 % Concent (32.0-36.0) Red Cell Distribution Width 14.5 % (11.6-17.2) Platelet Count 48 TH/MM3 (150-450) Mean Platelet Volume 9.7 FL (7.0-11.0) Neutrophils (%) (Auto) 82.3 % (16.0-70.0) Lymphocytes (%) (Auto) 8.1 % (9.0-44.0) Monocytes (%) (Auto) 9.5 % (0.0-8.0) Eosinophils (%) (Auto) 0.0 % (0.0-4.0) Basophils (%) (Auto) 0.1 % (0.0-2.0) Neutrophils # (Auto) 8.4 TH/MM3 (1.8-7.7) Lymphocytes # (Auto) 0.8 TH/MM3 (1.0-4.8) Monocytes # (Auto) 1.0 TH/MM3 (0-0.9) Eosinophils # (Auto) 0.0 TH/MM3 (0-0.4) Basophils # (Auto) 0.0 TH/MM3 (0-0.2) CBC Comment AUTO DIFF Differential Total Cells 100 Counted Neutrophils % (Manual) 81 % (16-70) Band Neutrophils % 5 % (0-6) Lymphocytes % 6 % (9-44) Monocytes % 8 % (0-8) Neutrophils # (Manual) 8.7 TH/MM3 (1.8-7.7) Nucleated Red Blood Cells 1 /100 WBC (0-0) Differential Comment FINAL DIFF MANUAL Platelet Estimate LOW (NORMAL) Platelet Morphology Comment NORMAL (NORMAL) Red Cell Morphology Comment NORMAL (NORMAL) Blood Smear Pathologist Review Sodium Level 140 MEQ/L (136-145) Potassium Level 4.0 MEQ/L (3.5-5.1) Chloride Level 104 MEQ/L (98-107) Carbon Dioxide Level 29.0 MEQ/L (21.0-32.0) Anion Gap 7 MEQ/L (5-15) Blood Urea Nitrogen 43 MG/DL (7-18) Creatinine 1.17 MG/DL (0.60-1.30) Estimat Glomerular Filtration 63 ML/MIN (>89) Rate Random Glucose 176 MG/DL (74-106) Calcium Level 8.2 MG/DL (8.5-10.1) Phosphorus Level 2.3 MG/DL (2.5-4.9) Magnesium Level 2.4 MG/DL (1.5-2.5) Total Bilirubin 0.7 MG/DL (0.2-1.0) Aspartate Amino Transf 318 U/L (15-37) (AST/SGOT) Alanine Aminotransferase 204 U/L (12-78) (ALT/SGPT) Alkaline Phosphatase 48 U/L (45-117) Total Protein 5.7 GM/DL (6.4-8.2) Albumin 3.1 GM/DL (3.4-5.0) Result Diagram: 04/27/1742904/27/17429 (1) Coronary artery disease Plan: s/p redo AVR/ CABG- doing well, per CT surg (2) Aortic stenosis due to bicuspid aortic valve (3) S/P AVR (aortic valve replacement) (4) S/P CABG x 1 (5) Blood loss anemia (6) Heart bloc atrioventricular Plan: CHB with HR in 50's; asymptomatic -continue observation for now, hopefully edema will go down an NSR will return (7) Acute kidney injury Neetu Ansari MD 18, 2017 09:24
--- NOTE | 2017-04-27 12:35 | PD.CARD.PN ---
Subjective Subjective Remarks Pt c/o dry eyes Objective Medications Current Medications Medications (Trade) Dose Ordered Sig/Jermaine Route Start Time Stop Time Status Last Admin (NS Flush) 2 ml UNSCH PRN IV FLUSH 04/24/17 06:00 04/27/17 05:30 (Bactroban 2% Oint) 1 applic BID EACH NARE 04/24/17 09:00 04/28/17 08:59 04/25/17 09:00 Sodium Chloride 2 ml 2 ml BID IV FLUSH 04/24/17 21:00 04/27/17 08:45 (Lr 1000 ml Inj) 500 ml @ 500 mls/hr Q1H PRN IV 04/24/17 15:55 (Aspirin Chew) 81 mg DAILY PO 04/25/17 09:00 04/27/17 08:44 (Protonix) 40 mg DAILY@06 PO 04/25/17 06:00 04/27/17 05:28 (Tylenol) 650 mg Q4H PRN PO 04/24/17 16:00 (fentaNYL INJ) 25 mcg Q1H PRN IV 04/24/17 16:00 04/27/17 05:30 (Zofran Inj) 4 mg Q6H PRN IV PUSH 04/24/17 16:00 04/24/17 23:45 (Apresoline Inj) 10 mg Q4H PRN IV 04/24/17 16:00 04/26/17 15:03 Metoprolol Tartrate 2.5 mg 2.5 mg Q1H PRN IV PUSH 04/24/17 16:00 Potassium Chloride 100 ml @ 50 mls/hr UNSCH PRN IV 04/24/17 16:00 04/27/17 05:29 Potassium Chloride 100 ml @ 50 mls/hr UNSCH PRN IV 04/24/17 16:00 Potassium Chloride 100 ml @ 50 mls/hr UNSCH PRN IV 04/24/17 16:00 04/24/17 18:17 Magnesium Sulfate 2 gm/Sodium Chloride 104 ml @ 100 mls/hr UNSCH PRN IV 04/24/17 16:00 (Magnesium Sulfate Inj/NS Inj) 104 ml @ 50 mls/hr UNSCH PRN IV 04/24/17 16:00 (Lipitor) 40 mg HS PO 04/24/17 21:00 04/26/17 21:00 Acetaminophen/ Hydrocodone Bitart 1 tab 1 tab Q4H PRN PO 04/24/17 16:00 04/26/17 14:53 Epinephrine HCl 2 mg/Dextrose 252 ml @ 0 mls/hr TITRATE IV 04/24/17 19:30 04/25/17 06:01 (DOPamine INJ PREMIX) 500 ml @ 14.794 mls/ hr UNSCH IV 04/25/17 07:45 04/26/17 15:18 (Colace) 100 mg BID PO 04/25/17 21:00 04/27/17 08:44 (Theragran M Tab) 1 tab DAILY PO 04/26/17 09:00 04/27/17 08:44 (Miralax) 17 gm DAILY PO 04/26/17 09:00 04/27/17 08:45 (Senokot) 8.6 mg HS PO 04/25/17 21:00 04/25/17 21:23 (Fleets Enema (Adult)) 133 ml UNSCH PRN RECTAL 04/25/17 14:45 (D50w (Vial) Inj) 50 ml UNSCH PRN IV 04/25/17 14:45 (Glucagon Inj) 1 mg UNSCH PRN OTHER 04/25/17 14:45 Insulin Aspart 1 1 ACHS SQ 04/26/17 21:00 04/27/17 10:54 (Thiamine Inj/NS Inj) 101 ml @ 101 mls/hr DAILY IV 04/27/17 09:00 04/27/17 08:45 Folic Acid 1 mg 1 mg DAILY PO 04/27/17 09:00 04/27/17 08:44 (Isuprel Inj/D5W Inj) 260 ml @ 0 mls/hr TITRATE IV 04/26/17 21:30 04/27/17 05:31 Vital Signs / I&O Vital Signs Date Time Temp Pulse Resp B/P Pulse Ox O2 Delivery O2 Flow Rate FiO2 04/27/17 11:05 95 Nasal Cannula 5.00 04/27/17 11:04 130 04/27/17 11:03 98.6 135 22 138/63 98 04/27/17 07:41 98.6 120 22 135/59 98 137/75 04/27/17 07:40 120 04/27/17 07:39 98 Simple Mask 6.00 04/27/17 07:30 97 Simple Mask 6.00 04/27/17 05:55 0 04/27/17 04:00 99 Non-Rebreather 04/27/17 04:00 99.4 120 18 110/56 99 04/27/17 00:00 125 20 120/57 94 04/27/17 00:00 94 Non-Rebreather 04/27/17 00:00 124 04/26/17 20:30 96 Bi-Pap 50 04/26/17 20:30 97 50 04/26/17 20:00 88 Nasal Cannula 6.00 04/26/17 20:00 97.8 104 20 170/80 88 127/58 04/26/17 18:13 20 04/26/17 16:52 22 04/26/17 16:00 94 50 04/26/17 15:00 30 04/26/17 15:00 92 Bi-Pap 50 04/26/17 15:00 99.3 96 22 142/69 92 167/88 04/26/17 13:28 90 50 I/O 04/26/17 04/26/17 04/26/17 04/27/17 04/27/17 04/27/17 07:00 15:00 23:00 07:00 15:00 23:00 Intake Total 1194 ml 515 ml 1223 ml Output Total 700 ml 1560 ml 1100 ml Balance 494 ml -1045 ml 123 ml Intake Oral 840 ml 240 ml 540 ml IV Total 354 ml 275 ml 683 ml Output Urine Total 650 ml 1500 ml 1000 ml Chest Tube Drainage Total 50 ml 60 ml 100 ml # Bowel Movements 0 0 0 Physical Exam GENERAL: Well developed, well nourished. No acute distress on BiPAP HEENT: Jugular venous pressure is normal. CHEST: Lungs decreased clear to auscultation bilaterally. Unlabored respiratory effort. CARDIAC: tachy rate and rhythm without S3, S4, or murmur. ABDOMEN: Soft, nontender, EXTREMITIES: No clubbing, cyanosis, mild edema. Laboratory Laboratory Tests Test 04/26/17 04/26/17 04/27/17 13:02 15:30 04:30 Blood Gas Puncture Site ART LINE Blood Gas Patient Temperature 98.6 Blood Gas HCO3 26 mmol/L Blood Gas Base Excess 1.7 mmol/L Blood Gas Oxygen Saturation 93 % Arterial Blood pH 7.42 Arterial Blood Partial 40 mmHg Pressure CO2 Arterial Blood Partial 86 mmHg Pressure O2 Arterial Blood Oxygen Content 12.0 Vol % Arterial Blood 1.5 % Carboxyhemoglobin Arterial Blood Methemoglobin 1.2 % Blood Gas Hemoglobin 9.0 G/DL Oxygen Delivery Device BIPAP Blood Gas Ventilator Setting EPAP6/PS6/IPAP12 Blood Gas Inspired Oxygen 60 % Sodium Level 142 MEQ/L 140 MEQ/L Potassium Level 3.8 MEQ/L 4.0 MEQ/L Chloride Level 105 MEQ/L 104 MEQ/L Carbon Dioxide Level 31.3 MEQ/L 29.0 MEQ/L Anion Gap 6 MEQ/L 7 MEQ/L Blood Urea Nitrogen 49 MG/DL 43 MG/DL Creatinine 1.55 MG/DL 1.17 MG/DL Estimat Glomerular Filtration 46 ML/MIN 63 ML/MIN Rate Random Glucose 151 MG/DL 176 MG/DL Calcium Level 8.4 MG/DL 8.2 MG/DL White Blood Count 10.1 TH/MM3 Red Blood Count 3.03 MIL/MM3 Hemoglobin 8.6 GM/DL Hematocrit 25.7 % Mean Corpuscular Volume 84.9 FL Mean Corpuscular Hemoglobin 28.4 PG Mean Corpuscular Hemoglobin 33.4 % Concent Red Cell Distribution Width 14.5 % Platelet Count 48 TH/MM3 Mean Platelet Volume 9.7 FL Neutrophils (%) (Auto) 82.3 % Lymphocytes (%) (Auto) 8.1 % Monocytes (%) (Auto) 9.5 % Eosinophils (%) (Auto) 0.0 % Basophils (%) (Auto) 0.1 % Neutrophils # (Auto) 8.4 TH/MM3 Lymphocytes # (Auto) 0.8 TH/MM3 Monocytes # (Auto) 1.0 TH/MM3 Eosinophils # (Auto) 0.0 TH/MM3 Basophils # (Auto) 0.0 TH/MM3 CBC Comment AUTO DIFF Differential Total Cells 100 Counted Neutrophils % (Manual) 81 % Band Neutrophils % 5 % Lymphocytes % 6 % Monocytes % 8 % Neutrophils # (Manual) 8.7 TH/MM3 Nucleated Red Blood Cells 1 /100 WBC Differential Comment FINAL DIFF MANUAL Platelet Estimate LOW Platelet Morphology Comment NORMAL Red Cell Morphology Comment NORMAL Blood Smear Pathologist Review Phosphorus Level 2.3 MG/DL Magnesium Level 2.4 MG/DL Total Bilirubin 0.7 MG/DL Aspartate Amino Transf 318 U/L (AST/SGOT) Alanine Aminotransferase 204 U/L (ALT/SGPT) Alkaline Phosphatase 48 U/L Total Protein 5.7 GM/DL Albumin 3.1 GM/DL Assessment and Plan Problem List: (1) Coronary artery disease Assessment and Plan: s/p redo AVR/ CABG- doing well, per CT surg (2) Aortic stenosis due to bicuspid aortic valve (3) S/P AVR (aortic valve replacement) (4) S/P CABG x 1 (5) Blood loss anemia (6) Heart bloc atrioventricular Assessment and Plan: on isuprel and HR 130's, he has had some pauses with lower doses. transcutaneous pacer on with back up HR of 40 => try to wean isuprel to get HR <110 (7) Acute kidney injury Denise Flores MD Apr 27, 2017 12:35
[2017-04-27] MEDS: ACETAMINOPHEN/HYDROcodone 325 MG/5 MG TAB PO PRN ×3 (14:02→23:36)
[2017-04-27 16:04] LABS: BICARBONATE 30.3 MEQ/L (21.0-32.0)
[2017-04-27] MEDS: SENNOSIDES 8.6 MG TAB PO SCH (21:00)
[2017-04-27] MEDS: ATORVASTATIN 40 MG TAB PO SCH (21:11)
[2017-04-28] VITALS (9 sets, daily range): BP systolic 120–158; BP diastolic 58–87; PULSE 109–119; RESP 16–22; TEMP 98.3–99; O2SAT 92–97
[2017-04-28] MEDS: RESP: ALBUTEROL 2.5 MG/IPRATROPIUM 0.5 MG NEB (SCH) NEB ×5 (03:24→20:51)
[2017-04-28] MEDS: ISOPROTERENOL INJ 2 MG in DEXTROSE 5% IN WATER INJ 250 ML IV SCH ×2 (03:52)
[2017-04-28] MEDS: PANTOPRAZOLE SOD 40 MG DELAYED RELEASE TAB PO SCH (04:28)
[2017-04-28] MEDS: ACETAMINOPHEN/HYDROcodone 325 MG/5 MG TAB PO PRN ×4 (04:28→20:53)
[2017-04-28 05:47] LABS: ALT (GPT) 244 U/L (12-78); ANION GAP 4 MEQ/L (5-15); AST (GOT) 292 U/L (15-37); BICARBONATE 33.3 MEQ/L (21.0-32.0); BLOOD UREA NITROGEN 31 MG/DL (7-18); CHLORIDE 104 MEQ/L (98-107); GLOMERULAR FILTRATION RATE 71 ML/MIN (>89); MAGNESIUM 2.4 MG/DL (1.5-2.5); SODIUM (NA) 141 MEQ/L (136-145)
[2017-04-28] MEDS: INSULIN ASPART SUPPLEMENTAL SCALE SQ SCH ×4 (06:00→21:00)
[2017-04-28 06:01] LABS: ALKALINE PHOSPHATASE 57 U/L (45-117); CREATINE KINASE 2152 U/L (39-308); LDH SERUM 655 U/L (87-241); TOTAL BILIRUBIN ADULT 0.7 MG/DL (0.2-1.0)
[2017-04-28 06:22] LABS: CKMB 2.4 NG/ML (0.5-3.6)
--- NOTE | 2017-04-28 06:38 | RADRPT ---
EXAM DATE/TIME: 04/28/2017 04:52 [place] COMPARISON: No previous studies available for comparison. INDICATIONS : Shortness of breath, possible pulmonary disease. MEDICAL HISTORY : Cardiovascular disease. SURGICAL HISTORY : CABG. ENCOUNTER: Subsequent ACUITY: 1 week PAIN SCORE: 4/10 LOCATION: Bilateral chest FINDINGS: Mild consolidation and small effusion again seen at the left lung base, not significantly changed. Ri ght lung is clear. A right chest tube remains in place. Mediastinal drain also remains. No pneumothor ax seen. Mild cardiomegaly unchanged. Patient has had median sternotomy and CABG. There is a right internal ju gular central venous catheter with tip in the superior vena cava. CONCLUSION: No significant change. Benny Sesay MD on April 28, 2017 at 6:35 Board Certified Radiologist. This report was verified electronically.
[2017-04-28] MEDS: ASPIRIN 81 MG CHEW TAB PO SCH (08:03)
[2017-04-28] MEDS: SODIUM CHLORIDE 0.9% FLUSH 10 ML FLUSH IV FLUSH SCH (08:03)
[2017-04-28] MEDS: POLYETHYLENE GLYCOL 17 GM PKG PO SCH (08:30)
[2017-04-28] MEDS: FOLIC ACID 1 MG TAB PO SCH (08:30)
[2017-04-28] MEDS: DOCUSATE SODIUM 100 MG CAP PO SCH ×2 (08:30→20:53)
[2017-04-28] MEDS: MULTIVITAMINS/MINERALS THERAPEUTIC TAB PO SCH (08:30)
[2017-04-28] MEDS: THIAMINE INJ 100 MG in SODIUM CHLORIDE 0.9% INJ 100 ML IV SCH (08:30)
[2017-04-28 09:19] LABS: BASOPHIL % 0.2 % (0.0-2.0); EOSINOPHIL # 0.1 TH/MM3 (0-0.4); EOSINOPHIL % 0.8 % (0.0-4.0); HEMATOCRIT 24.3 % (39.0-51.0); LYMPH % 13.3 % (9.0-44.0); LYMPHOCYTE # 1.4 TH/MM3 (1.0-4.8); MEAN CELL VOLUME 86.8 FL (80.0-100.0); MEAN CORPUSCULAR HEMOGLOBIN 29.2 PG (27.0-34.0); MEAN CORPUSCULAR HGB CONC 33.7 % (32.0-36.0); MONO % 10.1 % (0.0-8.0); NEUT % 75.6 % (16.0-70.0); PLATELET COUNT 74 TH/MM3 (150-450); RED BLOOD COUNT 2.81 MIL/MM3 (4.50-5.90); RED CELL DISTRIBUTION WIDTH 14.9 % (11.6-17.2); WHITE BLOOD COUNT 10.5 TH/MM3 (4.0-11.0)
[2017-04-28 09:20] LABS: HEMO FLAGS AUTO DIFF
[2017-04-28 10:02] LABS: PLATELET ESTIMATE SMEAR LOW (NORMAL); PLATELET MORPHOLOGY NORMAL (NORMAL); SCAN/DIFF AUTO DIFF CONFIRMED
--- NOTE | 2017-04-28 10:22 | PD.CAR.PN ---
CVT Progress Note Subjective/Hospital Course: 62/ male hx of CAD/ prior CABG in 2000. C/o of exertional chest pressure and dyspnea over the past couple of months , + palpitations. Underwent cardiac cath by Dr Mobley 3 vessel [place] disease, patent MCNEIL> LAD totally occluded vein graft to PDA, chronic total occlusion y graft posterolateral branch and distal RCA , mod disease graft to OM / severe mean gradient of 48mmhg PMH: CAD/ BABG 2000, HTN, HLP surgery: 04/24 REDO sternotomy for REDO CABG x 1 , AVR with a 25 Intuity tissue valve, SVG to PDA, EVH (right leg), VICKI pump time 226min, 3000cc crystalloid , 1000cc cell saver, EBL 2000cc, s/p one pack of PLT, cryo extubated after surgery 04/25 pt had some tachy ankush arrhythmia last pm RBBB 3rd degree HB, placed on EPI post op , and Dopamine + 6 kg from surgery , IV bumex given weaning off Epi gtt, continue dopamine for now leave pt in CVICU for now will need aggressive pulm toileting, wean 02 as tolerated 04/26 Marginal oxygenation on 80% Diurese and incentive spirometry Monitor renal status 04/27 Doing better this am. Had significant episodes of long conduction pauses yesterday. Appreciate cardiology and [employer] input Weaning Oxygen as tolerated 04/28 remains on Isuprel gtt, HR 100, BP stable chest tube drained 200cc/ 12 hrs episode of bradycardia last pm await re-eval by Dr Elliott Objective: GENERAL: SKIN: Warm and dry. prevena dressing to chest , incision intact right leg HEAD: Normocephalic. EYES: No scleral icterus. No injection or drainage. NECK: Supple, trachea midline. No JVD or lymphadenopathy. CARDIOVASCULAR: sinus tach, on isuprel gtt without murmurs, gallops, or rubs. RESPIRATORY: Breath sounds equal bilaterally. No accessory muscle use. diminished in bases , chest tube to water seal, no air leak GASTROINTESTINAL: Abdomen soft, non-tender, nondistended. MUSCULOSKELETAL: No cyanosis, or edema. BACK: Nontender without obvious deformity. No CVA tenderness. Vital Signs Date Time Temp Pulse Resp B/P Pulse Ox O2 Delivery O2 Flow Rate FiO2 04/28/17 07:30 97 Nasal Cannula 3.00 04/28/17 07:00 115 6/19/17 07:00 98.7 115 18 148/76 94 120/64 04/28/17 07:00 94 Nasal Cannula 4.00 04/28/17 04:00 99.0 117 18 154/87 97 133/69 04/28/17 04:00 97 Simple Mask 8.00 04/28/17 04:00 116 04/28/17 01:00 97 Simple Mask 8.00 04/28/17 00:00 118 04/28/17 00:00 119 16 142/80 92 133/69 04/28/17 00:00 92 Nasal Cannula 5.00 04/27/17 21:18 97 04/27/17 21:05 98 Nasal Cannula 4.00 04/27/17 20:00 126 04/27/17 20:00 99.3 127 20 133/71 93 124/69 04/27/17 20:00 93 Nasal Cannula 5.00 04/27/17 20:00 40 04/27/17 15:07 93 Nasal Cannula 5.00 04/27/17 15:06 130 04/27/17 15:05 98.5 131 19 139/79 93 04/27/17 15:04 19 04/27/17 12:35 40 04/27/17 11:05 95 Nasal Cannula 5.00 04/27/17 11:04 130 04/27/17 11:03 98.6 135 22 138/63 98 Labs: Laboratory Tests Test 04/28/17 04/28/17 05:00 09:02 Haptoglobin 40 MG/DL (30-200) Sodium Level 141 MEQ/L (136-145) Potassium Level 4.0 MEQ/L (3.5-5.1) Chloride Level 104 MEQ/L (98-107) Carbon Dioxide Level 33.3 MEQ/L (21.0-32.0) Anion Gap 4 MEQ/L (5-15) Blood Urea Nitrogen 31 MG/DL (7-18) Creatinine 1.06 MG/DL (0.60-1.30) Estimat Glomerular Filtration 71 ML/MIN (>89) Rate Random Glucose 168 MG/DL (74-106) Calcium Level 8.0 MG/DL (8.5-10.1) Phosphorus Level 2.6 MG/DL (2.5-4.9) Magnesium Level 2.4 MG/DL (1.5-2.5) Total Bilirubin 0.7 MG/DL (0.2-1.0) Aspartate Amino Transf 292 U/L (15-37) (AST/SGOT) Alanine Aminotransferase 244 U/L (12-78) (ALT/SGPT) Alkaline Phosphatase 57 U/L (45-117) Lactate Dehydrogenase 655 U/L (87-241) Total Creatine Kinase 2152 U/L (39-308) Creatine Kinase MB 2.4 NG/ML (0.5-3.6) Creatine Kinase MB % 0.1 % (0.0-4.0) Total Protein 5.5 GM/DL (6.4-8.2) Albumin 3.0 GM/DL (3.4-5.0) White Blood Count 10.5 TH/MM3 (4.0-11.0) Red Blood Count 2.81 MIL/MM3 (4.50-5.90) Hemoglobin 8.2 GM/DL (13.0-17.0) Hematocrit 24.3 % (39.0-51.0) Mean Corpuscular Volume 86.8 FL (80.0-100.0) Mean Corpuscular Hemoglobin 29.2 PG (27.0-34.0) Mean Corpuscular Hemoglobin 33.7 % Concent (32.0-36.0) Red Cell Distribution Width 14.9 % (11.6-17.2) Platelet Count 74 TH/MM3 (150-450) Mean Platelet Volume 9.3 FL (7.0-11.0) Neutrophils (%) (Auto) 75.6 % (16.0-70.0) Lymphocytes (%) (Auto) 13.3 % (9.0-44.0) Monocytes (%) (Auto) 10.1 % (0.0-8.0) Eosinophils (%) (Auto) 0.8 % (0.0-4.0) Basophils (%) (Auto) 0.2 % (0.0-2.0) Neutrophils # (Auto) 8.0 TH/MM3 (1.8-7.7) Lymphocytes # (Auto) 1.4 TH/MM3 (1.0-4.8) Monocytes # (Auto) 1.1 TH/MM3 (0-0.9) Eosinophils # (Auto) 0.1 TH/MM3 (0-0.4) Basophils # (Auto) 0.0 TH/MM3 (0-0.2) CBC Comment AUTO DIFF Differential Comment AUTO DIFF CONFIRMED Platelet Estimate LOW (NORMAL) Platelet Morphology Comment NORMAL (NORMAL) Result Diagram: 04/28/17 0902 04/28/17 0500 Telemetry: st (1) Coronary artery disease Plan: s/p redo AVR/ CABG- on ASA No BB with recent completer HB pulm toileting OOB when cleared by [facility] will dangle on side of bed today (2) Aortic stenosis due to bicuspid aortic valve (3) S/P AVR (aortic valve replacement) (4) S/P CABG x 1 (5) Blood loss anemia Plan: HGB 8.2/24 (6) Heart bloc atrioventricular Plan: on isuprel and HR 130's, he has had some pauses with lower doses. transcutaneous pacer on with back up HR of 40 => try to wean isuprel to get HR <110 Dr Elliott to eval for possible need for pacer (7) Acute kidney injury Plan: creatine stable (8) Elevated LFTs Plan: improving AST/ ALT Hepatitis panel pending Raine Stapleton Apr 28, 2017 10:22
--- NOTE | 2017-04-28 11:15 | HHI.CCPN ---
Subjective Remarks/Hospital Course 61-year-old female. Date of admission 04/24/2017. Date of consultation 04/26/2017. Past medical history includes coronary artery disease status post [address] Banda, hypertension, dyslipidemia and spinal stenosis. Prior tobaccoism 45 pack years quit 2010 and EtOH use to 3 glasses of wine daily. Patient had a right and left heart catheterization ventilator Dr. Cormier Left main has 10% proximal disease. Left anterior descending is totally occlusive disease. The left circumflex was a 25% proximal stenosis right at the takeoff of the severely diseased obtuse marginal. 80% ostial stenosis of the obtuse marginal/ramus intermedius. Right coronary artery totally occluded proximally. Very few collaterals. The MCNEIL to LAD graft is patent. Mid LAD is included after takeoff of diagonal which is now disease. Some collaterals. The Y graft of the posterolateral branch and distal right coronary artery is totally included proximally. The vein graft to the obtuse marginal tubular 60% lesion midportion. Aortic stenosis mean gradient 45 On 04/24, patient had redo CABG sternotomy aVR 25Intuity tissue SVG to PDA EVH and VICKI Dr. Loomis. EBL 2000. Cell Saver 1000. Urine output 750. Crystalloid 3000. Post procedure, patient went to 3 AV block and currently with IV Zosyn. Dr. Abernathy was consulted. Recommended observation 48 hours postprocedure prior to any intervention. Recommended dopamine currently at 3 mics grams per kilogram per minute. Isuprel if needed and temporarily pacemaker if medication fails. Patient has developed some respiratory failure extubated to 10 L simple mask. Currently on BiPAP 10/14 at 60%. Saturations were 91%. Received 80 mg lasix IV 1. His x-ray revealed right IJ central line in place. Bilateral chest tubes. Currently on an due nebs every 6 hours and as needed. We were asked to assist in management. ABG is currently pending. At the present time, the patient is denying shortness of breath. Minimal sputum output. Denies chest pain. Subjective 04/27: Afebrile. Currently on 100 percent nonrebreather. Breathing comfortable. X-ray essentially stable. Creatinine has stabilized. Early overnight, increasing long episodes of pauses. Isuprel currently at 5 mics grams initiated by cardiology. 04/28: Remains on Isuprel 3 mics/min. did not tolerate weaning attempt of lisinopril yesterday became severely bradycardic. EP Dr. Abernathy to see today and decide on need for PPM Objective Vital Signs Date Time Temp Pulse Resp B/P Pulse Ox O2 Delivery O2 Flow Rate FiO2 04/28/17 11:00 93 Nasal Cannula 3.00 04/28/17 07:00 115 04/28/17 07:00 98.7 18 148/76 120/64 04/26/17 20:30 50 Intake and Output 04/27/17 04/27/17 04/28/17 08:00 16:00 00:00 Intake Total 1223 ml 1524 ml Output Total 1100 ml 1425 ml Balance 123 ml 99 ml Result Diagram: 04/28/17 0902 04/28/17 0500 Imaging Last Impressions Chest X-Ray 04/26/17 0000 Signed Impressions: Service Date/Time: Wednesday, April 26, 2017 03:06 - CONCLUSION: 1. Chest tubes and right central line unchanged. Basilar airspace disease not significantly changed since April 25. Renzo Granado MD Objective Remarks Drfamilia Isuprel at 3 mcg/m GENERAL: 62-year-old male, resting in bed o SKIN: Warm and dry. No rash HEAD: Atraumatic. Normocephalic. EYES: Pupils equal and round around 3 mm bilaterally and reactive. No scleral icterus. No injection or drainage. ENT: No nasal bleeding or discharge. Mucous membranes pink and moist. NECK: Trachea midline. No JVD. CARDIOVASCULAR: Tachycardic in 130s. Currently in sinus tachycardia. No audible murmur RESPIRATORY: No accessory muscle use. Few scattered crackles appreciated. Breath sounds equal bilaterally. GASTROINTESTINAL: Abdomen soft, non-tender, protuberant. Hypoactive bowel sounds are appreciated MUSCULOSKELETAL: Extremities with trace lower extremity edema. No obvious deformities. NEUROLOGICAL: Awake and alert. No obvious cranial nerve deficits. Motor grossly within normal limits. Five out of 5 muscle strength in the arms and legs. Normal speech. Date of Insertion: Apr 24, 2017 Line: Central Venous Catheter Side: Right Location: Internal, Jugular A/P Assessment and Plan Neuro/Psych: Acetaminophen for fever [place] 5/325 as needed for pain management Fentanyl 25 g as needed for breakthrough pain CV: Postop day #4 CABG/sternotomy with aVR 25 mm Infinity tissue SVG to PDA, EVH, VICKI Dr. Loomis Complete heart block Hypertension Dyslipidemia Currently on Isuprel at 3 mcg/m. Followed by Dr. ABERNATHY - recommended monitoring 48-72 hours prior to any pacemaker placement) inflammation to go down. Temporary VVI pacemaker if indicated. Currently on aspirin 81 mg daily. Continue On Lipitor 40 mg by mouth daily for dyslipidemia. Continue Holding fish oil 1200 mg daily/not on formulary Holding metoprolol 75 mg by mouth twice a day in light of AV dissociation Resp: Respiratory insufficiency Prior tobaccoism Chest tube -60 cc serosanguineous. -20 cm H2O Diuresed with 40 mg IV Lasix 1 previously. Recheck BMP Chest x-ray revealed adequate placement chest tubes. Continue on bronchodilator therapy every 4 hours with albuterol nebulizers every 2 hours when necessary Wean oxygen as tolerated GI: Clear liquid diet Protonix for GI prophylaxis Colace twice a day, MiraLAX, Senokot for bowel regimen : Ferreira catheter not indicated. Endo: Sliding-scale insulin with Accu-Cheks every 4 hours/per CT surgery to maintain tight glycemic control Renal: Acute kidney injury - resolving Creatinine baseline 1.1. Prior surgery 1.2.. Currently 1.17 Monitor closely. Currently receiving diuretics. Avoid nephrotoxic drugs Recheck BMP in a.m. Urine eosinophils negative Heme: Normocytic anemia Thrombocytopenia Received 1000 Cell Saver post surgery. No indication for transfusion of blood products at this time. Recheck CBC in a.m. ID: Monitor for infections Status post Ancef 2 g IV every 8 hours 5 dosages MSK: SS PT evaluate and treat FEN: Recheck potassium this afternoon light of dysrhythmia and recently Lasix usage Access - Right IJ cordis day #5 with dual-lumen catheter placed DC today - Left radial art line day #5 DC today Prophylaxis - GI - Protonix - DVT - RACHELLE/pharmacological prophylaxis when okay with CT surgery Critical care time 35 minutes Sara Zapata MD Apr 28, 2017 11:15
[2017-04-28] MEDS: hydrALAZINE HCL 20 MG/ML VIAL IV PRN (11:23)
[2017-04-28] MEDS: SODIUM CHLOR 0.9% 1000 ML INJ 1,000 ML IV SCH ×2 (13:56→23:00)
[2017-04-28] MEDS ORDERED: CHLORHEXIDINE GLUCONATE 2 % 1 PACK (2 CLOTHS) TOPICAL SCH (14:00)
[2017-04-28] MEDS ORDERED: POVIDONE IODINE 5% (ANTISEPSIS KIT) 4 APPLICATIONS TOPICAL SCH (14:00)
[2017-04-28] MEDS ORDERED: MUPIROCIN 2% OINT 1 APPLIC/GM SYR EACH NARE SCH (14:00)
[2017-04-28] MEDS: POTASSIUM CHLORIDE 20 MEQ CONTROLLED RELEASE TAB PO SCH ×2 (14:15→20:53)
--- NOTE | 2017-04-28 15:58 | PD.CARD.PN ---
Subjective Subjective Remarks Denies dyspnea, angina, dizziness, palpitations. Slept fairly well. No nausea , abdominal pain. Objective Medications Item Value Date Time Furosemide 40 mg 04/28/17 1800 (Lasix Inj) BID@09,18/IV PUSH Potassium Chloride 20 meq 04/28/17 1415 (KCl) Q12HR/PO Isoproterenol HCl 260 ml @ 0 mls/hr 04/26/17 2130 2 mg/Dextrose TITRATE/IV 04/28/17 0352 Aspirin 81 mg 04/25/17 0900 (Aspirin Chew) DAILY/PO Dopamine HCl/ 500 ml @ 14.794 mls/hr 04/25/17 0745 Dextrose UNSCH/IV 04/26/17 1518 Atorvastatin 40 mg 04/24/17 2100 Calcium HS/PO 04/27/17 2111 (Lipitor) Vital Signs / I&O Vital Signs Date Time Temp Pulse Resp B/P Pulse Ox O2 Delivery O2 Flow Rate FiO2 04/28/17 11:00 98.8 114 18 158/83 92 134/65 04/28/17 11:00 114 04/28/17 11:00 93 Nasal Cannula 3.00 04/28/17 07:30 97 Nasal Cannula 3.00 04/28/17 07:00 115 04/28/17 07:00 98.7 115 18 148/76 94 120/64 04/28/17 07:00 94 Nasal Cannula 4.00 04/28/17 04:00 99.0 117 18 154/87 97 133/69 04/28/17 04:00 97 Simple Mask 8.00 04/28/17 04:00 116 04/28/17 01:00 97 Simple Mask 8.00 04/28/17 00:00 118 04/28/17 00:00 119 16 142/80 92 133/69 04/28/17 00:00 92 Nasal Cannula 5.00 04/27/17 21:18 97 04/27/17 21:05 98 Nasal Cannula 4.00 04/27/17 20:00 126 04/27/17 20:00 99.3 127 20 133/71 93 124/69 04/27/17 20:00 93 Nasal Cannula 5.00 04/27/17 20:00 40 I/O 04/27/17 04/27/17 04/27/17 04/28/17 04/28/17 04/28/17 07:00 15:00 23:00 07:00 15:00 23:00 Intake Total 1223 ml 1524 ml 1510 ml Output Total 1100 ml 1425 ml 1200 ml Balance 123 ml 99 ml 310 ml Intake Oral 540 ml 1000 ml 1120 ml IV Total 683 ml 524 ml 390 ml Output Urine Total 1000 ml 1325 ml 1000 ml Chest Tube Drainage Total 100 ml 100 ml 200 ml # Bowel Movements 0 0 0 Physical Exam GENERAL: Well developed, well nourished. No acute distress. HEENT: Jugular venous pressure is normal. CHEST: Lungs clear to auscultation anteriorly. CARDIAC: Regular rate and rhythm without S3, S4, or murmur. ABDOMEN: Soft, nontender, no hepatosplenomegaly. Bowel sounds present. EXTREMITIES: No clubbing, cyanosis, or edema. Laboratory Laboratory Tests Test 04/28/17 04/28/17 05:00 09:02 Haptoglobin 40 MG/DL Sodium Level 141 MEQ/L Potassium Level 4.0 MEQ/L Chloride Level 104 MEQ/L Carbon Dioxide Level 33.3 MEQ/L Anion Gap 4 MEQ/L Blood Urea Nitrogen 31 MG/DL Creatinine 1.06 MG/DL Estimat Glomerular Filtration 71 ML/MIN Rate Random Glucose 168 MG/DL Calcium Level 8.0 MG/DL Phosphorus Level 2.6 MG/DL Magnesium Level 2.4 MG/DL Total Bilirubin 0.7 MG/DL Aspartate Amino Transf 292 U/L (AST/SGOT) Alanine Aminotransferase 244 U/L (ALT/SGPT) Alkaline Phosphatase 57 U/L Lactate Dehydrogenase 655 U/L Total Creatine Kinase 2152 U/L Creatine Kinase MB 2.4 NG/ML Creatine Kinase MB % 0.1 % Total Protein 5.5 GM/DL Albumin 3.0 GM/DL White Blood Count 10.5 TH/MM3 Red Blood Count 2.81 MIL/MM3 Hemoglobin 8.2 GM/DL Hematocrit 24.3 % Mean Corpuscular Volume 86.8 FL Mean Corpuscular Hemoglobin 29.2 PG Mean Corpuscular Hemoglobin 33.7 % Concent Red Cell Distribution Width 14.9 % Platelet Count 74 TH/MM3 Mean Platelet Volume 9.3 FL Neutrophils (%) (Auto) 75.6 % Lymphocytes (%) (Auto) 13.3 % Monocytes (%) (Auto) 10.1 % Eosinophils (%) (Auto) 0.8 % Basophils (%) (Auto) 0.2 % Neutrophils # (Auto) 8.0 TH/MM3 Lymphocytes # (Auto) 1.4 TH/MM3 Monocytes # (Auto) 1.1 TH/MM3 Eosinophils # (Auto) 0.1 TH/MM3 Basophils # (Auto) 0.0 TH/MM3 CBC Comment AUTO DIFF Differential Comment AUTO DIFF CONFIRMED Platelet Estimate LOW Platelet Morphology Comment NORMAL Assessment and Plan Problem List: (1) Complete heart block Assessment and Plan: Still with prolonged asystolic episodes, complete heart block when drips turned down, now POD #4. Overall rec permanent pacemaker implant tomorrow. Nature of pacemaker surgery, risks benefits outlined to patient and family. (2) Coronary artery disease Assessment and Plan: Stable s/p AVR/CABG last week. No recurrent angina. Will consider nuclear stress test in 3-4 months to assess for any significant ischemia in the OM territory. (3) S/P AVR (aortic valve replacement) Assessment and Plan: Stable s/p AVR/CABG. Code Status full code Discussed Condition With patient and , at length Problem Qualifiers (1) Coronary artery disease: Qualified Code: I25.10 - Coronary artery disease involving campo coronary artery of campo heart without angina pectoris Grey Cormier MD Apr 28, 2017 15:58
[2017-04-28] MEDS: FUROSEMIDE 40 MG/4 ML VIAL IV PUSH SCH (18:12)
[2017-04-28] MEDS: ATORVASTATIN 40 MG TAB PO SCH (20:53)
[2017-04-28] MEDS: SENNOSIDES 8.6 MG TAB PO SCH (21:00)
[2017-04-29] VITALS (15 sets, daily range): BP systolic 126–150; BP diastolic 77–91; PULSE 101–130; RESP 16–22; TEMP 97.9–99.2; O2SAT 94–96
[2017-04-29] MEDS: SODIUM CHLORIDE 0.9% FLUSH 10 ML FLUSH IV FLUSH SCH ×3 (00:04→21:00)
[2017-04-29] MEDS: RESP: ALBUTEROL 2.5 MG/IPRATROPIUM 0.5 MG NEB (SCH) NEB ×6 (00:28→21:43)
[2017-04-29] MEDS: ACETAMINOPHEN/HYDROcodone 325 MG/5 MG TAB PO PRN ×5 (01:03→19:59)
[2017-04-29] MEDS ORDERED: LACTATED RINGER'S 1000 ML IV PRN (03:45)
[2017-04-29] MEDS ORDERED: POVIDONE IODINE 5% (ANTISEPSIS KIT) 4 APPLICATIONS EACH NARE PRN (03:45)
[2017-04-29] MEDS ORDERED: CHLORHEXIDINE GLUCONATE 2 % 1 PACK (2 CLOTHS) TOPICAL PRN (03:45)
[2017-04-29 04:29] LABS: AUTOMATED NEUTROPHIL # 7.4 TH/MM3 (1.8-7.7); BASOPHIL % 0.2 % (0.0-2.0); EOSINOPHIL # 0.2 TH/MM3 (0-0.4); EOSINOPHIL % 1.5 % (0.0-4.0); LYMPH % 16.2 % (9.0-44.0); LYMPHOCYTE # 1.7 TH/MM3 (1.0-4.8); MEAN CELL VOLUME 86.8 FL (80.0-100.0); MEAN CORPUSCULAR HEMOGLOBIN 29.3 PG (27.0-34.0); MEAN CORPUSCULAR HGB CONC 33.8 % (32.0-36.0); MONO % 11.1 % (0.0-8.0); PLATELET COUNT 94 TH/MM3 (150-450); RED BLOOD COUNT 2.77 MIL/MM3 (4.50-5.90); RED CELL DISTRIBUTION WIDTH 14.8 % (11.6-17.2); WHITE BLOOD COUNT 10.5 TH/MM3 (4.0-11.0)
[2017-04-29 04:37] LABS: HEMO FLAGS AUTO DIFF
[2017-04-29 04:51] LABS: ANION GAP 8 MEQ/L (5-15); AST (GOT) 175 U/L (15-37); BICARBONATE 29.2 MEQ/L (21.0-32.0); BLOOD UREA NITROGEN 29 MG/DL (7-18); CHLORIDE 104 MEQ/L (98-107); GLOMERULAR FILTRATION RATE 76 ML/MIN (>89); POTASSIUM 4.2 MEQ/L (3.5-5.1); SODIUM (NA) 141 MEQ/L (136-145)
[2017-04-29 04:54] LABS: ALKALINE PHOSPHATASE 70 U/L (45-117); ALT (GPT) 208 U/L (12-78); TOTAL BILIRUBIN ADULT 0.8 MG/DL (0.2-1.0)
[2017-04-29] MEDS: PANTOPRAZOLE SOD 40 MG DELAYED RELEASE TAB PO SCH (05:09)
[2017-04-29 05:27] LABS: PLATELET ESTIMATE SMEAR LOW (NORMAL); PLATELET MORPHOLOGY NORMAL (NORMAL); SCAN/DIFF AUTO DIFF CONFIRMED
[2017-04-29] MEDS: INSULIN ASPART SUPPLEMENTAL SCALE SQ SCH ×4 (06:40→21:38)
[2017-04-29] MEDS: DOCUSATE SODIUM 100 MG CAP PO SCH ×2 (09:01→21:29)
[2017-04-29] MEDS: FOLIC ACID 1 MG TAB PO SCH (09:02)
[2017-04-29] MEDS: POTASSIUM CHLORIDE 20 MEQ CONTROLLED RELEASE TAB PO SCH ×2 (09:02→21:29)
[2017-04-29] MEDS: ASPIRIN 81 MG CHEW TAB PO SCH (09:03)
[2017-04-29] MEDS: MULTIVITAMINS/MINERALS THERAPEUTIC TAB PO SCH (09:03)
[2017-04-29] MEDS: FUROSEMIDE 40 MG/4 ML VIAL IV PUSH SCH ×2 (09:03→17:02)
[2017-04-29] MEDS: POLYETHYLENE GLYCOL 17 GM PKG PO SCH (09:03)
[2017-04-29] MEDS: SODIUM CHLOR 0.9% 1000 ML INJ 1,000 ML IV SCH ×2 (09:16→16:01)
--- NOTE | 2017-04-29 09:29 | HHI.CCPN ---
Subjective Remarks/Hospital Course 61-year-old female. Date of admission 04/24/2017. Date of consultation 04/26/2017. Past medical history includes coronary artery disease status post 5 vessel CAB[address] Banda, hypertension, dyslipidemia and spinal stenosis. Prior tobaccoism 45 pack years quit 2010 and EtOH use to 3 glasses of wine daily. Patient had a right and left heart catheterization ventilator Dr. Cormier Left main has 10% proximal disease. Left anterior descending is totally occlusive disease. The left circumflex was a 25% proximal stenosis right at the takeoff of the severely diseased obtuse marginal. 80% ostial stenosis of the obtuse marginal/ramus intermedius. Right coronary artery totally occluded proximally. Very few collaterals. The MCNEIL to LAD graft is patent. Mid LAD is included after takeoff of diagonal which is now disease. Some collaterals. The Y graft of the posterolateral branch and distal right coronary artery is totally included proximally. The vein graft to the obtuse marginal tubular 60% lesion midportion. Aortic stenosis mean gradient 45 On 04/24, patient had redo CABG sternotomy aVR 25Intuity tissue SVG to PDA EVH and VICKI Dr. Loomis. EBL 2000. Cell Saver 1000. Urine output 750. Crystalloid 3000. Post procedure, patient went to 3 AV block and currently with IV Zosyn. Dr. Elliott was consulted. Recommended observation 48 hours postprocedure prior to any intervention. Recommended dopamine currently at 3 mics grams per kilogram per minute. Isuprel if needed and temporarily pacemaker if medication fails. Patient has developed some respiratory failure extubated to 10 L simple mask. Currently on BiPAP 10/14 at 60%. Saturations were 91%. Received 80 mg lasix IV 1. His x-ray revealed right IJ central line in place. Bilateral chest tubes. Currently on an due nebs every 6 hours and as needed. We were asked to assist in management. ABG is currently pending. At the present time, the patient is denying shortness of breath. Minimal sputum output. Denies chest pain. Subjective 04/27: Afebrile. Currently on 100 percent nonrebreather. Breathing comfortable. X-ray essentially stable. Creatinine has stabilized. Early overnight, increasing long episodes of pauses. Isuprel currently at 5 mics grams initiated by cardiology. 04/28: Remains on Isuprel 3 mics/min. did not tolerate weaning attempt of lisinopril yesterday became severely bradycardic. EP Dr. Elliott to see today and decide on need for PPM 04/29: Patient currently remains on Isuprel. Heart rate 110, sinus rhythm. Because of persistent AV block more than 72 hours postop, patient is to get permanent pacemaker today with Dr. Cormier Objective Vital Signs Date Time Temp Pulse Resp B/P Pulse Ox O2 Delivery O2 Flow Rate FiO2 04/29/17 07:00 110 04/29/17 07:00 98.9 16 150/91 94 04/29/17 07:00 Nasal Cannula 4.00 04/26/17 20:30 50 Intake and Output 04/28/17 04/28/17 04/29/17 08:00 16:00 00:00 Intake Total 1510 ml 855 ml Output Total 1200 ml 880 ml Balance 310 ml -25 ml Result Diagram: 04/29/17 0350 04/29/17 0350 Imaging Last Impressions Chest X-Ray 04/26/17 0000 Signed Impressions: Service Date/Time: Friday, April 26, 2017 03:06 - CONCLUSION: 1. Chest tubes and right central line unchanged. Basilar airspace disease not significantly changed since April 25. Renzo Granado MD Objective Remarks Drips Isuprel off GENERAL: 62-year-old male, resting in bed o SKIN: Warm and dry. No rash HEAD: Atraumatic. Normocephalic. EYES: Pupils equal and round around 3 mm bilaterally and reactive. No scleral icterus. No injection or drainage. ENT: No nasal bleeding or discharge. Mucous membranes pink and moist. NECK: Trachea midline. No JVD. CARDIOVASCULAR: Tachycardic in 110s. Currently in sinus tachycardia. No audible murmur RESPIRATORY: No accessory muscle use. Few scattered crackles appreciated. Breath sounds equal bilaterally. GASTROINTESTINAL: Abdomen soft, non-tender, protuberant. Hypoactive bowel sounds are appreciated MUSCULOSKELETAL: Extremities with trace lower extremity edema. No obvious deformities. NEUROLOGICAL: Awake and alert. No obvious cranial nerve deficits. Motor grossly within normal limits. Five out of 5 muscle strength in the arms and legs. Urinary Catheter: Yes Assessment to: Continue Vascular Central Line Catheter: Yes Assessment to: Continue Date of Insertion: Apr 24, 2017 Line: Central Venous Catheter Side: Right Location: Internal, Jugular A/P Assessment and Plan Neuro/Psych: Acetaminophen for fever [place] 5/325 as needed for pain management Fentanyl 25 g as needed for breakthrough pain CV: Postop day #5 CABG/sternotomy with aVR 25 mm Infinity tissue SVG to PDA, EVH, VICKI Dr. Loomis Complete AV disassociation Hypertension Dyslipidemia Currently off Isuprel . Getting PPM today with Dr. Cormier Currently on aspirin 81 mg daily. Continue On Lipitor 40 mg by mouth daily for dyslipidemia. Continue Holding fish oil 1200 mg daily/not on formulary Holding metoprolol 75 mg by mouth twice a day in light of AV dissociation Resp: Respiratory insufficiency Prior tobaccoism Chest tube -20 cm H2O, to be removed today Continue on bronchodilator therapy, change to every 6 hours with albuterol nebulizers every 2 hours when necessary Wean oxygen as tolerated GI: Nothing by mouth for PPM placement Protonix for GI prophylaxis Colace twice a day, MiraLAX, Senokot for bowel regimen : Ferreira catheter not indicated. Endo: Sliding-scale insulin with Accu-Cheks every 4 hours/per CT surgery to maintain tight glycemic control Renal: Acute kidney injury - resolving Creatinine baseline 1.1. Creatinine 0.99 today Monitor closely. Avoid nephrotoxic drugs Recheck BMP in a.m. Urine eosinophils negative Heme: Normocytic anemia Thrombocytopenia Received 1000 Cell Saver post surgery. No indication for transfusion of blood products at this time. Recheck CBC in a.m. ID: Monitor for infections Status post Ancef 2 g IV every 8 hours 5 dosages PT evaluate and treat Prophylaxis - GI - Protonix - DVT - RACHELLE/pharmacological prophylaxis when okay with CT surgery Level 3 Sara Zapata MD Apr 29, 2017 09:29 - Left radial art line day #5 DC today Prophylaxis - GI - Protonix - DVT - RACHELLE/pharmacological prophylaxis when okay with CT surgery Critical care time 35 minutes Sara Zapata MD Apr 29, 2017 09:29
[2017-04-29] MEDS: THIAMINE INJ 100 MG in SODIUM CHLORIDE 0.9% INJ 100 ML IV SCH (11:01)
[2017-04-29] MEDS ORDERED: ceFAZolin INJ 1,000 MG in SODIUM CHLORIDE 0.9% INJ 250 ML IV SCH (12:30)
[2017-04-29] MEDS ORDERED: VANCOMYCIN INJ 1,000 MG in SODIUM CHLOR 0.9% 250 ML INJ 250 ML IV SCH (12:30)
[2017-04-29] MEDS ORDERED: PROPOFOL 200 MG/20 ML AMP IV ONE (13:24)
[2017-04-29] MEDS ORDERED: IODIXANOL 320 MG/ML 50 ML VIAL (for Cath Lab) IV ONE (13:25)
[2017-04-29] MEDS ORDERED: MIDAZOLAM HCL 2 MG/2 ML VIAL ONE (13:37)
--- NOTE | 2017-04-29 15:06 | CATHPROC ---
I-DISPO HIS Report Study Information Study Number Admission Scheduled Start Study Start [id number] Apr 24 2017 5:21AM 04/29/2017 Apr 29 2017 12:23PM [facility] Cardiac Pacer/ICD Admit Source Facility Department Other [facility] Administrative Assistant Physician and Clinical Staff Initial Grey Desai Conference Producer Ritesh Michelle,RT(R) Other Anesthesia, NON PROFIT FINANCIAL CONTROLLER Recorder Lilliana Ayoub,TORI Scrub Elizabeth Allan,RT(R) TECH2 Procedures Performed Procedure Location (Site) Vessel Name Lead Insertion Venogram Subclav. Vein (Lft Subclavian Vein Equipment Time Fan Blade Truer Description Size Mfg Part Number Used/Scraped 14:34 BIOTRONIK LEAD, SOLIA 60 53 PRO MRI * [id number] Used 14:42 BIOTRONIK PACEMAKER, ELUNA 8 DR-T DDDR [id number] Used 14:24 BIOTRONIK PACEMAKER, SOLIA S PRO MRI * [id number] Used [id number] 12:32 MEDLINE INDUSTRIES SUTURE, STRIP PLUS 1/2" * Used *[id number] 12:32 MEDLINE PACER ADHESIVE, MASTISOL 2/3CC 2/3CC 0523-48 Used 12:32 MEDLINE PACER KILPATRICK, LIMB * 2530 *[id number] Used [id number] 12:32 MEDLINE PACER PACK, PACER CUSTOM * Used *[id number] 12:32 MEDLINE PACER PEN, SKIN DUAL W/ RULER * Used *[id number] 14:26 FameBit MEDICAL PACER SAFE SHEATH, FR7, 13CM FR 7 [id number] Used 14:33 FameBit MEDICAL PACER SAFE SHEATH, FR7, 13CM FR 7 [id number] Used 13:56 Needle Sponge Count 1 111 Used 13:56 Needle Sponge Count 2 22 Used 13:56 Needle Sponge Count 25 1 Used 13:56 Needle Sponge Count 3 3 Used 14:59 Needle Sponge Count 4 4 Used 15:00 Needle Sponge Count 4 4 Used 15:00 Needle Sponge Count 4 4 Used 14:09 NYCOMED OMNIPAQUE, 300 MG, 50ML 50ML [id number] Used [id number] *[id number] SUTURE, 3-0 VICRYL [SH] ([id number]) SUTURE, 3-0 VICRYL [SH] ([id number]) SUTURE, 4-0 MONOCRYL [PS2] (Y496G) [id number] 12:32 CLIO MEDICAL BLANKET,WARM AIR CCL * Used *[id number] [facility] PAD, ELECTROSURGICAL 12:32 * [id number] *[id number] Used SURGICAL GROUNDING ORANGE 4734-1677 12:32 [employer]OLL [employer] JESSE. 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 Imdur History: Allergies Allergy Reaction No Known Allergies Lisinopril History: Risk Factors Family History of Hypertension Dyslipidemia Previous CT Previous Heart Failure Premature CAD Yes Yes Yes Yes No Prior Valve Prior PCI Prior CABG Prior CABGDate Surgery No No Yes 09/10/2001 Cerebrovascular Peripheral Artery Chronic Lung On Dialysis Diabetes Disease Disease Disease No No No No No History: Symptoms/Diagnosis Selection Items SOB History: CV Disease Selection Items Known CAD History: Stress Tests Stress or Imaging Studies Performed No History: Other Disease Selection Items CAD HTN History: Other Current Smoker Method Quit Packs a Day Years Used Pack Years No Cigarettes 16 Years Ago 12 09 30 Labs Hgb (g/dl) Hct (%) RBC (MIL/MM3) WBC (l/cumm) Platelets (thousands) 12.00-18.00 37.00-55.00 4.80-6.20 4.80-10.80 140.00-450.00 8.0 24 2.7 10.5 94 Glucose (mg/dl) BUN (mg/dl) Creatinine (mg/dl) BUN:Creatinine (1:x) 60.00-110.00 8.00-20.00 0.10-9.00 10.00-20.00 106 29 0.9 32.2 Na (meq/l) K (meq/l) 138.00-146.00 3.80-5.10 141 4.2 INR (PTT:PT) 0.50-2.00 1 Medication Medication Total Dose (Bolus/Oral) Medication Total Dosage/Unit 2% XYLOCAINE 50 mL Medications (Bolus/Oral) Medication Time Given Dosage/Unit Administered By Reason 2% XYLOCAINE 04/29/2017 2:06:00 PM 50 mL Grey Cormier 50 mL 2% XYLOCAINE given in lab by Grey Cormier in Left upper chest via Subcutaneous. Ordered by Grey Boyd. Medication (Drip) Medication Time Given Dosage/Unit Concentration/Unit Diluent (ml) Solution ANCEF 04/29/2017 1:40:54 PM 1 g 1 g ANCEF given in lab by Lilliana Ayoub RN in Left Forearm via Peripheral IV. Ordered by Lizz Cormier. Reason: As per physicians verbal order. VANCOMYCIN DRIP 04/29/2017 1:40:34 PM 1 g 1 g VANCOMYCIN DRIP given in lab by Lilliana Ayoub RN in Left Forearm via Peripheral IV. Ordered b Grey Cox. Reason: As per physicians verbal order. Final Case Assessment Cardiovascular HR NIBP 102 106/55 Edema Present Skin color Skin Mild Normal Warm Dry Circulatory - Right Pulses Radial 1 Scale (0,1,2,3,4,d) Circulatory - Left Pulses Radial 1 Scale (0,1,2,3,4,d) Circulatory - Lower Extremities Color Lower Right Color Lower Left Normal Normal Neurological State Lethargic Moves all extremities Respiration - General Respiration Rate SpO2 (%) O2 (lpm) (B/min) 16 97 4 Initial Case Assessment Cardiovascular HR Rhythm NIBP Chest Pain 112 st 137/77 0 Edema Present Skin color Skin Mild Normal Warm Dry Circulatory - Right Pulses Radial 1 Scale (0,1,2,3,4,d) Circulatory - Left Pulses Radial 1 Scale (0,1,2,3,4,d) Circulatory - Lower Extremities Color Lower Right Color Lower Left Normal Normal Neurological State Oriented to time-place- Alert Moves all extremities person Respiration - General Respiration Rate SpO2 (%) O2 (lpm) (B/min) 21 97 4 Chronological Log Time Study Chronological Log 11:39:44 Dr Cormier made aware of abn lab values. No orders received. Carol Ann Rosas RN spoke with Savannah COX re: chest dressing et received order to remove the dressing pr ior to surgery. BZ 13:01:26 removed dressing in pt room. Sterile 4x4's placed over incision for transport to OR. 13:24:13 Patient arrived via Bed. 13:24:16 Patient Name, D.O.B, / Armband Verified By R.N. 13:24:17 Consent signed by the physician and the patient and verified by the Hr Administrative Assistant staff. 13:24:19 Pre-op and post- op instructions given; patient acknowledges understanding of instructions. 13:35:46 Anesthesia at bedside. Assumes care of patient. Neo 13:39:51 Patient has been NPO for More than 6Hrs. 13:39:52 Skin Breakdown- dressing on coccyx, buttocks reddened Assessment: Initial Case, NQ=270 BPM, Rhythm=st, WYAI=595/77 mmhg, Chest Pain=0, Edema=Mild, Co [place]ana=Normal, Skin = Warm, Dry Right Pulses: Radial=1 Left Pulses: Radial=1 13:40:00 Lower Right Extremities: Color=Normal Lower Left Extremities: Color=Normal Neurological: State=Alert, Ox3, GRAY Respiration: Resp=21 B/min, SpO2=97 %, O2=4 lpm 13:40:22 Patient Warmer Placed on the Table. 13:40:24 Disposable Defibrillator Pads Placed On Patient. 13:40:25 [place] Prominences Protected 13:40:27 A # 20 IV was noted in the Forearm (left). Grade = 0 0.9ns kvo 13:40:27 A # 20 IV was noted in the Antecubital (left). Grade = 0 0.9ns kvo 13:40:29 History and physical on the chart. 1 g VANCOMYCIN DRIP given in lab by Lilliana Ayoub, TORI in Left Forearm via Peripheral IV. Ord ered by Genia 13:40:34 Grey. Reason: As per physicians verbal order. 13:40:37 Table restraints applied according to hospital policy 13:40:41 Bovie ground pad applied to: right thigh 1 g ANCEF given in lab by Lilliana Ayoub, TORI in Left Forearm via Peripheral IV. Ordered by Grey Richmond. Reason: 13:40:54 As per physicians verbal order. 13:40:59 2% CHLORHEXIDINE GLUCONATE WASH AND NASAL SWIPE DONE PRIOR TO PROCEDURE. 13:44:05 Upper Chest Prepped Times Two. First Sponge And Instrument Count Done by Elizabeth Allan, RT(R) TECH2. 13:52:52 Hypo's: 4, Sponges: 25, Bovie/scratch: 2 Sutures: 6, Blades: 2, Instruments: 26, Syveck Patches: ~SYVECK PATCH~ verified with DC 13:53:12 Reference ECG taken 14:00:00 MD arrived. Time Out. Correct patient, procedure, procedure equipment, site and side verified with physicia n present. Time 14:05:02 concurred by MD, individual staff and NON PROFIT FINANCIAL CONTROLLER. Time Out #2 - Consents verified, patient in correct position, all results are labled and displa yed, safety precautions 14:05:34 taken, antibiotics administered. Time out concurred by MD, individual staff and NON PROFIT FINANCIAL CONTROLLER in procedu re 14:05:54 Case Start 14:06:00 50 mL 2% XYLOCAINE given in lab by Grey Cormier in Left upper chest via Subcutaneous. Order ed by Grey Cormier. 14:10:27 The Subclav. Vein (Lft was manually injected with 20 cc's of contrast. OMNIPAQUE, 300 MG, 5 0ML 50ML used. 14:21:19 Vascular access was obtained in the Subclav. Vein (Lft. 14:21:22 Wire inserted 14:22:26 2nd Vascular access was obtained in the Subclav. Vein (Lft. 14:22:37 Wire inserted 14:23:09 Surgical Incision Made. 14:24:30 Raytec in pocket 14:25:28 A SAFE SHEATH, FR7, 13CM FR 7 was advanced into the Subclav. Vein (Lft using the Modified S eldinger technique. 14:25:53 A PACEMAKER, SOLIA S PRO MRI * was inserted and positioned in the RV. 14:28:24 Lead placement verified under fluoroscopy 14:29:50 The RV lead impedance and threshold being tested. 14:32:00 The RV lead was sutured to the fascia. 14:32:19 A SAFE SHEATH, FR7, 13CM FR 7 was advanced into the Subclav. Vein (Lft using the Modified S eldinger technique. 14:35:52 A LEAD, SOLIA 60 53 PRO MRI * was inserted and positioned in the RA. 14:36:41 Lead placement verified under fluoroscopy 14:38:17 The Atrial lead impedance and threshold is being tested. 14:41:13 The Atrial lead was sutured to the fascia. 14:43:26 A PACEMAKER, ELUNA 8 DR-T DDDR was connected and placed in the pocket. Second Sponge And Instrument Count Done by Elizabeth Allan, RT(R) TECH2. 14:45:51 Hypo's: 4, Sponges: 25, Bovie/scratch: 2 Sutures: 6, Blades: 2, Instruments: 26, Syveck Patches: ~SYVECK PATCH~ verified with DC 14:46:20 Sponge removed from the surgical pocket. 14:51:19 The pocket was closed. 14:56:07 Implant Procedure was performed. 14:56:16 A PPM Implant . (Dual) 14:56:26 Bedside Report will be given. The Final Sponge And Instrument Count Done by Elizabeth Allan RT(R) TECH2. 14:56:34 Hypo's: 4, Sponges: 25, Bovie/scratch: 2 Sutures: 6, Blades: 2, Instruments: 26, Syveck Patches: ~SYVECK PATCH~ and doug c 14:57:22 Steri-strips and a sterile dressing applied to site. 14:57:36 Case End Assessment: Final Case, EE=559 BPM, PNOM=551/55 mmhg, Edema=Mild, Color=Normal, Skin = Warm, D ry Right Pulses: Radial=1 Left Pulses: Radial=1 14:57:52 Lower Right Extremities: Color=Normal Lower Left Extremities: Color=Normal Neurological: State=Lethargic, GRAY Respiration: Resp=16 B/min, SpO2=97 %, O2=4 lpm 15:00:36 CICU called. Spoke to Mago 15:00:46 Bedside Report will be given. 15:00:48 Implantable Device card placed in patient's chart. 15:05:55 Defibrillator and ground pads removed. Skin intact. 15:11:01 Patient moved to stretcher End Study - Contrast Media Used In Study Contrast Total Opened (mL) Total Used (mL) Total Wasted (mL) Omnipaque 500 20 480 End Study - Maximum Contrast Load Max Contrast Load (mL) 700.0 End Study - Radiation Exposure Fluoro Time (minutes) 7.4 End Study - Patient Disposition Complications Transferred To Interventional Outcome No Telemetry Bed successful
[2017-04-29] MEDS ORDERED: traMADol HCL 50 MG TAB PO PRN (15:15)
[2017-04-29] MEDS ORDERED: *RESP: ALBUTEROL 2.5 MG/3 ML NEB (PRN) PERIprocedural Use ONLY NEB ONE (15:23)
[2017-04-29] MEDS ORDERED: DO NOT ADM ANY ANTICOAGULANT DRUGS PRN (16:00)
--- NOTE | 2017-04-29 16:12 | PD.CAR.PN ---
CVT Progress Note Subjective/Hospital Course: 62/ male hx of CAD/ prior CABG in 2000. C/o of exertional chest pressure and dyspnea over the past couple of months , + palpitations. Underwent cardiac cath by Dr Mobley 3 vessel [place] disease, patent MCNEIL> LAD totally occluded vein graft to PDA, chronic total occlusion y graft posterolateral branch and distal RCA , mod disease graft to OM / severe mean gradient of 48mmhg PMH: CAD/ BABG 2000, HTN, HLP surgery: 04/24 REDO sternotomy for REDO CABG x 1 , AVR with a 25 Intuity tissue valve, SVG to PDA, EVH (right leg), VICKI pump time 226min, 3000cc crystalloid , 1000cc cell saver, EBL 2000cc, s/p one pack of PLT, cryo extubated after surgery 04/25 pt had some tachy ankush arrhythmia last pm RBBB 3rd degree HB, placed on EPI post op , and Dopamine + 6 kg from surgery , IV bumex given weaning off Epi gtt, continue dopamine for now leave pt in CVICU for now will need aggressive pulm toileting, wean 02 as tolerated 04/26 Marginal oxygenation on 80% Diurese and incentive spirometry Monitor renal status 04/27 Doing better this am. Had significant episodes of long conduction pauses yesterday. Appreciate cardiology and Banquet Steward input Weaning Oxygen as tolerated 04/28 remains on Isuprel gtt, HR 100, BP stable chest tube drained 200cc/ 12 hrs episode of bradycardia last pm await re-eval by Dr Elliott 04/29 HR improved for pacer placement today chest tube removed without difficulty on 4 liter nasal cannula Objective: GENERAL: SKIN: Warm and dry. incision intact and well approximated mid sternum HEAD: Normocephalic. EYES: No scleral icterus. No injection or drainage. NECK: Supple, trachea midline. No JVD or lymphadenopathy. CARDIOVASCULAR: NSR > ST Regular rate and rhythm without murmurs, gallops, or rubs. RESPIRATORY: diminished in bases Breath sounds equal bilaterally. No accessory muscle use. chest tube removed GASTROINTESTINAL: Abdomen soft, non-tender, nondistended. MUSCULOSKELETAL: No cyanosis, or edema. BACK: Nontender without obvious deformity. No CVA tenderness. Vital Signs Date Time Temp Pulse Resp B/P Pulse Ox O2 Delivery O2 Flow Rate FiO2 04/29/17 15:22 98.6 104 22 145/80 88 Simple Mask 10 04/29/17 11:00 109 04/29/17 11:00 98.4 109 16 137/79 95 04/29/17 11:00 95 Nasal Cannula 4.00 04/29/17 10:02 16 04/29/17 07:00 110 04/29/17 07:00 110 04/29/17 07:00 98.9 109 16 150/91 94 04/29/17 07:00 95 Nasal Cannula 4.00 04/29/17 06:58 94 Nasal Cannula 3.00 04/29/17 03:00 97.9 101 18 126/82 95 04/29/17 03:00 101 04/29/17 03:00 95 Nasal Cannula 4.00 04/28/17 23:00 98.4 110 22 126/82 96 Arterial Line 04/28/17 23:00 110 04/28/17 23:00 96 Nasal Cannula 4.00 04/28/17 20:51 93 Nasal Cannula 3.00 04/28/17 19:00 109 04/28/17 19:00 98.3 109 22 135/58 95 04/28/17 19:00 95 Nasal Cannula 4.00 Labs: Laboratory Tests Test 04/29/17 08:18 Blood Type O POSITIVE Antibody Screen NEGATIVE Result Diagram: 04/29/17 0350 04/29/17 0350 (1) Complete heart block Plan: for pacer today (2) Coronary artery disease Plan: Stable s/p AVR/CABG last week. No recurrent angina. nuclear stress test in 3-4 months to assess for any significant ischemia in the OM territory. on ASA , no statin 2/2 elevated LFT, no BB with recent complete Heart block (3) S/P AVR (aortic valve replacement) Plan: Stable s/p AVR/CABG. Problem Qualifiers (1) Coronary artery disease: Qualified Code: I25.10 - Coronary artery disease involving [place] coronary artery of [place] heart without angina pectoris Raine Stapleton Apr 29, 2017 16:12
--- NOTE | 2017-04-29 16:43 | RADRPT ---
EXAM DATE/TIME: 04/29/2017 15:34 [facility] COMPARISON: CHEST SINGLE AP, April 28, 2017, 4:52. INDICATIONS : Pneumothorax. Post heart cath. MEDICAL HISTORY : Cardiovascular disease. SURGICAL HISTORY : CABG. ENCOUNTER: Subsequent ACUITY: 1 day PAIN SCORE: 0/10 LOCATION: Bilateral chest FINDINGS: The patient is status post sternotomy. There is a new bi-lead pacemaker in place from the left subcla vian approach. A pneumothorax is not seen. The cardiac silhouette is enlarged. There is hazy density at the bases bilaterally being worse on the left. There is silhouetting the left hemidiaphragm. CONCLUSION: 1. New left subclavian bilead pacemaker in good position without pneumothorax. 2. Cardiomegaly. 3. Bibasilar areas of suspected consolidation or atelectasis being worse on the left. Some degree of left effusion needs to be considered. Benny Harmon MD on April 29, 2017 at 16:39 Board Certified Radiologist. This report was verified electronically.
[2017-04-29] MEDS: SODIUM CHLORIDE 0.9% FLUSH 10 ML FLUSH IV FLUSH PRN (17:02)
[2017-04-29] MEDS: SENNOSIDES 8.6 MG TAB PO SCH (21:29)
[2017-04-29] MEDS: ATORVASTATIN 40 MG TAB PO SCH (21:29)
[2017-04-30] VITALS (29 sets, daily range): BP systolic 130–159; BP diastolic 68–85; PULSE 100–118; RESP 18–20; TEMP 97.8–99.5; O2SAT 93–97
[2017-04-30] MEDS: RESP: ALBUTEROL 2.5 MG/IPRATROPIUM 0.5 MG NEB (SCH) NEB ×5 (00:17→15:47)
[2017-04-30] MEDS: ACETAMINOPHEN/HYDROcodone 325 MG/5 MG TAB PO PRN ×4 (00:20→20:46)
[2017-04-30] MEDS ORDERED: VANCOMYCIN INJ 1,000 MG in SODIUM CHLOR 0.9% 250 ML INJ 250 ML IV SCH (04:00)
[2017-04-30] MEDS: PANTOPRAZOLE SOD 40 MG DELAYED RELEASE TAB PO SCH (05:02)
[2017-04-30] MEDS: SODIUM CHLOR 0.9% 1000 ML INJ 1,000 ML IV SCH ×4 (05:07→20:49)
[2017-04-30] MEDS: INSULIN ASPART SUPPLEMENTAL SCALE SQ SCH ×4 (06:22→20:47)
[2017-04-30] MEDS: FUROSEMIDE 40 MG/4 ML VIAL IV PUSH SCH ×2 (09:00→18:24)
--- NOTE | 2017-04-30 09:32 | RADRPT ---
EXAM DATE/TIME: 04/30/2017 09:01 [facility] COMPARISON: CHEST SINGLE AP, April 29, 2017, 15:34. INDICATIONS : Post chest tube removal. MEDICAL HISTORY : Cardiovascular disease. SURGICAL HISTORY : Pacemaker. CABG. ENCOUNTER: Subsequent ACUITY: 4 - 6 days PAIN SCORE: 0/10 LOCATION: Bilateral chest FINDINGS: The heart is enlarged. The patient is post median sternotomy. There is a transvenous pacer. There is minimal effusion at the left lung base. There are atelectatic changes at the left lung base. No pneum othorax is seen. Study is stable compared to prior dated 04/29/17 at 1534 hrs. CONCLUSION: 1. Post median sternotomy changes. 2. Minimal left basilar effusion and atelectasis. 3. No pneumothorax identified. Eren Alexander MD on April 30, 2017 at 9:29 Board Certified Radiologist. This report was verified electronically.
[2017-04-30 09:50] LABS: HEMATOCRIT 24.1 % (39.0-51.0); MEAN CELL VOLUME 86.5 FL (80.0-100.0); MEAN CORPUSCULAR HGB CONC 33.5 % (32.0-36.0); PLATELET COUNT 125 TH/MM3 (150-450); RED BLOOD COUNT 2.79 MIL/MM3 (4.50-5.90); RED CELL DISTRIBUTION WIDTH 15.3 % (11.6-17.2); REVIEW FLAG FINAL; WHITE BLOOD COUNT 10.4 TH/MM3 (4.0-11.0)
[2017-04-30] MEDS: POTASSIUM CHLORIDE 20 MEQ CONTROLLED RELEASE TAB PO SCH ×2 (09:54→20:45)
[2017-04-30] MEDS: SODIUM CHLORIDE 0.9% FLUSH 10 ML FLUSH IV FLUSH SCH ×2 (09:54→20:46)
[2017-04-30] MEDS: MULTIVITAMINS/MINERALS THERAPEUTIC TAB PO SCH (09:55)
[2017-04-30] MEDS: FOLIC ACID 1 MG TAB PO SCH (09:55)
[2017-04-30] MEDS: DOCUSATE SODIUM 100 MG CAP PO SCH ×2 (09:55→20:46)
[2017-04-30] MEDS: ASPIRIN 81 MG CHEW TAB PO SCH (09:55)
[2017-04-30] MEDS: POLYETHYLENE GLYCOL 17 GM PKG PO SCH (09:55)
[2017-04-30 10:07] LABS: BICARBONATE 26.9 MEQ/L (21.0-32.0); MAGNESIUM 2.6 MG/DL (1.5-2.5); POTASSIUM 3.8 MEQ/L (3.5-5.1)
--- NOTE | 2017-04-30 10:54 | MP ---
cc: ANAYELI CABALLERO M.D. DATE OF SURGERY: 04/29/2017 PROCEDURE Dual-chamber permanent pacemaker implantation via the left subclavian vein. INDICATIONS Severe sick sinus syndrome. OPERATIVE NOTE The patient was brought to the operating suite in a fasting state after having signed informed consent. The left upper chest was prepped and draped as per policy and anesthetized with 1% lidocaine. Central venous access was obtained twice via the left subclavian vein after administration of 15 ccs of contrast through a left arm peripheral IV. A transverse incision was made inferior to the left clavicle and using blunt dissection a subcutaneous pocket was formed down to the pectoralis fascia. Over the more lateral guidewire a 7-Persian sheath was placed and through this sheath a ventricular active fixation lead was introduced and its tip positioned in the right ventricular apex where good current of injury, stimulation threshold (0.8 volts) and sensitivity (15.4 millivolts) were demonstrated. This lead was secured into place using 2-0 Silk ties down to the pectoralis fascia. Over the remaining guidewire another 7-Persian sheath was placed and through this sheath an atrial active fixation lead was introduced and its tip positioned in the right atrial appendage where good current of injury, stimulation threshold (1.1 volts) and sensitivity (2.2 millivolts) were demonstrated. This lead was secured into place using 2-0 Silk ties down to the pectoralis fascia. The leads were then connected to the pacemaker generator which is a Biotronik Eluna device. The leads and the generator were placed back into the subcutaneous pocket which was closed using 3-0 Vicryl interrupted stitches in two layers to close the subcutaneous tissue and then 4-0 Monocryl running stitch to close the subcuticular tissue. Overlapping Steri-Strips and a dressing were applied. There were no apparent immediate complications. CONCLUSION Successful dual-chamber permanent pacemaker implantation via the left subclavian vein using a Biotronik Eluna pacemaker generator. MD SHITAL Garzon/MARISA /3:04 PM /10:48 AM [facility] MEDICAL CENTERFredy
[2017-04-30] MEDS ORDERED: METOPROLOL TARTRATE 25 MG TAB PO SCH (11:00)
[2017-04-30] MEDS ORDERED: POTASSIUM CHLORIDE 20 MEQ CONTROLLED RELEASE TAB PO ONE (11:00)
--- NOTE | 2017-04-30 11:09 | PD.CAR.PN ---
CVT Progress Note Subjective/Hospital Course: 62/ male hx of CAD/ prior CABG in 2000. C/o of exertional chest pressure and dyspnea over the past couple of months , + palpitations. Underwent cardiac cath by Dr Mobley 3 vessel [place] disease, patent MCNEIL> LAD totally occluded vein graft to PDA, chronic total occlusion y graft posterolateral branch and distal RCA , mod disease graft to OM / severe mean gradient of 48mmhg PMH: CAD/ BABG 2000, HTN, HLP surgery: 04/24 REDO sternotomy for REDO CABG x 1 , AVR with a 25 Intuity tissue valve, SVG to PDA, EVH (right leg), VICKI pump time 226min, 3000cc crystalloid , 1000cc cell saver, EBL 2000cc, s/p one pack of PLT, cryo extubated after surgery 04/25 pt had some tachy ankush arrhythmia last pm RBBB 3rd degree HB, placed on EPI post op , and Dopamine + 6 kg from surgery , IV bumex given weaning off Epi gtt, continue dopamine for now leave pt in CVICU for now will need aggressive pulm toileting, wean 02 as tolerated 04/26 Marginal oxygenation on 80% Diurese and incentive spirometry Monitor renal status 04/27 Doing better this am. Had significant episodes of long conduction pauses yesterday. Appreciate cardiology and Toolroom Attendant input Weaning Oxygen as tolerated 04/28 remains on Isuprel gtt, HR 100, BP stable chest tube drained 200cc/ 12 hrs episode of bradycardia last pm await re-eval by Dr Elliott 04/29 HR improved for pacer placement today chest tube removed without difficulty on 4 liter nasal cannula 04/30 HR 110/ sinus tach discussed with dr solis / will start low dose BB s/p DDD pacer 60/130/ start prophy antibiotics x 5 days No BM since surgery continue diuresis , still up 10kg / will need to dc on po lasix eval for dc in am wean off 02 Objective: Vital Signs Date Time Temp Pulse Resp B/P Pulse Ox O2 Delivery O2 Flow Rate FiO2 04/30/17 06:00 111 04/30/17 05:00 107 04/30/17 04:00 98.6 109 20 137/83 95 04/30/17 04:00 112 04/30/17 03:24 96 Nasal Cannula 3.00 04/30/17 03:12 94 Nasal Cannula 3.00 04/30/17 03:00 102 04/30/17 02:00 107 04/30/17 01:00 102 04/30/17 00:26 95 Nasal Cannula 3.00 04/30/17 00:00 98.7 107 18 130/85 97 04/30/17 00:00 96 Nasal Cannula 3.00 04/30/17 00:00 108 04/29/17 23:00 110 04/29/17 22:00 110 04/29/17 21:47 94 Nasal Cannula 3.00 04/29/17 21:00 120 04/29/17 20:00 96 Nasal Cannula 3.00 04/29/17 20:00 99.2 130 22 135/77 96 04/29/17 20:00 114 04/29/17 19:00 112 04/29/17 18:00 115 04/29/17 17:00 108 04/29/17 16:46 96 Nasal Cannula 3.00 04/29/17 16:26 98.0 109 20 149/82 96 04/29/17 16:00 99.9 109 22 147/80 92 Nasal Cannula 3 04/29/17 16:00 110 04/29/17 15:45 105 23 146/74 96 Nasal Cannula 4 04/29/17 15:30 102 22 146/84 98 Simple Mask 10 04/29/17 15:22 98.6 104 22 145/80 88 Simple Mask 10 04/29/17 15:00 110 Labs: Laboratory Tests Test 04/30/17 09:23 White Blood Count 10.4 TH/MM3 (4.0-11.0) Red Blood Count 2.79 MIL/MM3 (4.50-5.90) Hemoglobin 8.1 GM/DL (13.0-17.0) Hematocrit 24.1 % (39.0-51.0) Mean Corpuscular Volume 86.5 FL (80.0-100.0) Mean Corpuscular Hemoglobin 29.0 PG (27.0-34.0) Mean Corpuscular Hemoglobin 33.5 % Concent (32.0-36.0) Red Cell Distribution Width 15.3 % (11.6-17.2) Platelet Count 125 TH/MM3 (150-450) Mean Platelet Volume 8.9 FL (7.0-11.0) Sodium Level 140 MEQ/L (136-145) Potassium Level 3.8 MEQ/L (3.5-5.1) Chloride Level 105 MEQ/L (98-107) Carbon Dioxide Level 26.9 MEQ/L (21.0-32.0) Anion Gap 8 MEQ/L (5-15) Blood Urea Nitrogen 33 MG/DL (7-18) Creatinine 1.08 MG/DL (0.60-1.30) Estimat Glomerular Filtration 69 ML/MIN (>89) Rate Random Glucose 149 MG/DL (74-106) Calcium Level 8.3 MG/DL (8.5-10.1) Magnesium Level 2.6 MG/DL (1.5-2.5) Result Diagram: 04/30/1792204/30/17922 Cardiovascular: sinus tach (1) Complete heart block Plan: s/p biotronik DDD pacer placement 04/29 keep arm sling on x 2 weeks prophy antibiotics x 5 days f/u for pacer check in one week per Dr Solis (2) Coronary artery disease Plan: Stable s/p AVR/CABG last week. No recurrent angina. nuclear stress test in 3-4 months to assess for any significant ischemia in the OM territory. on ASA , no statin 2/2 elevated LFT, start low dose BB ( s/p pacer insitu ) (3) S/P AVR (aortic valve replacement) Plan: Stable s/p AVR/CABG. (4) Blood loss anemia Plan: start ferrous sulfate (5) Acute kidney injury Plan: indices improving (6) Elevated LFTs Plan: improving, no statin for now Problem Qualifiers (1) Coronary artery disease: Qualified Code: I25.10 - Coronary artery disease involving [place] coronary artery of [place] heart without angina pectoris Raine Stapleton Apr 30, 2017 11:09
--- NOTE | 2017-04-30 11:13 | HHI.FF ---
Face to Face Verification Diagnosis: (1) Coronary artery disease (2) Aortic stenosis due to bicuspid aortic valve (3) Blood loss anemia (4) Heart bloc atrioventricular (5) Acute kidney injury (6) Elevated LFTs (7) S/P AVR (aortic valve replacement) (8) S/P CABG x 1 (9) S/P placement of cardiac pacemaker Physical Therapy Order: Evaluate and Treat Home Health Nursing Order: Signs/symptoms of disease process Medication education-adverse effect Wound care and dressing changes Nursing assessment with vital signs Instructions: Heart and Vascular Surgery patients *Special attention to sternal dressing Mandatory frequency Assess and evaluation, 4 days in a row The next week 3X week 2 times a week for 4 weeks 1 time a week for 5 weeks Schedule Heart and Vascular patients for full 60 day certification period Initial visit Review Open Heart Surgery Discharge Instructions (Sternal precautions, Activity, Elastic hose, Incision care, Driving, Incentive spirometry, Smoking, [place], Work and other) Need Betadine to paint incision Medication reconciliation Importance of follow up care/ check on appointments Make calendar record temperature daily When to call [facility] at Home nurse, review instructions, phone list Incentive Spirometry, demonstration Visit 1- Begin discharge instruction for patient family and/ or caregiver using teach back method- Signs and symptoms of infection Disease characteristics Medicines and side effects Foods and nutrition/ appetite Infection control/ hand washing/ hygiene Visit 2- Continue teaching Discharge instructions- include additional information on smoking cessation , sternal dressing (sternal vac) Visit 3- Continue teaching- Cough and deep breathing, incision monitoring. Choose my plate Visit 4- Continue teaching- Discuss limitations Discuss how they are feeling Discuss progress toward goals Remaining visits- continue teaching and monitoring Incentive spirometry Q1 hr x 10, while awake, also use acapella device hourly whole awake Sternal Breast Bone Precautions: NO pushing or pulling, ( pt must use sternal pillow to support chest with all activities and with coughing ( takes up to 3 months breast bone to heal ) Daily incision care: ok to shower daily, no tub bath. Wash all incisions with liquid dial soap, clean wash cloth to each site, rinse and pat dry. Observe for any signs of infection, such as drainage which is dark yellow, grande, green or foul smelling. Immediately report to the surgeon any drainage from the chest incision, or legs, and for any abnormal drainage from the chest tube sites. Notify surgeon if any temp >101.5 degrees F. When specialty dressing removed/ or if you do not have one, continue to shower daily as above, then rinse and pat incision dry and paint with betadine daily x 5 days. Allow steri strips to fall off if you have any. Avoid lotions, creams, salves, oils, etc. for the first month see attached discharge instructions on post pacemaker , wear sling day and night x [address] Loomis patients , please obtain CBC, BMP, PA & Lat CXR in 2 weeks, results to Dr. Loomis ( prescription will be given) ( ) (Tele: [phone]) , Valve replacement pts will need 2decho in 2 weeks with results to Dr. Loomis . Please obtain 2 d echo at your bottle washer office if possible F/U appointment: as per DC instructions: PCP in 2 weeks, CV surgeon 2 weeks, Public Area Attendant 3-4 weeks/ pacer check at cardiology office in one week For any questions regarding incisions/ dressing / meds / post op care or above Symptoms, Friday 8am-5pm Heart & Vascular Surgery Office ( Dr. Ansari & Dr. Loomis), After Hours / Nights (5pm -8am) Weekends and Holidays Please call [facility] ([facility]) Charge Nurse I have seen patient Jimmy Hurtado on 04/30/17. My clinical findings support the need for the requested home health care services because: Deconditioned w/ increased weakness I certify that my clinical findings support that this patient is homebound because: Post-op weakness Raine Stapleton Apr 30, 2017 11:13
[2017-04-30] MEDS ORDERED: BISACODYL 10 MG SUPP RECTAL ONE (11:15)
[2017-04-30] MEDS ORDERED: CEPH-460 PO (13:23)
[2017-04-30] MEDS ORDERED: PILL SPLITTER OTHER PRN (13:30)
[2017-04-30] MEDS ORDERED: METOPROLOL TARTRATE 25 MG TAB PO ONE (13:30)
--- NOTE | 2017-04-30 13:46 | PD.CARD.PN ---
Subjective Subjective Remarks Feels well. No angina, dyspnea, dizziness, palpitations, nausea, abdominal pain , incision pain. Objective Medications Item Value Date Time Furosemide 40 mg 04/28/17 1800 (Lasix Inj) BID@,18/IV PUSH 04/29/17 170 Potassium Chloride 20 meq 04/28/17 1415 (KCl) Q12HR/PO 04/29/172128 Atorvastatin 40 mg 04/24/17 2100 Calcium HS/PO 04/29/17 212 (Lipitor) Metoprolol 25 mg 04/30/17 2100 Tartrate Q12HR/PO (Lopressor) Furosemide 40 mg 04/28/17 1800 (Lasix Inj) BID@,18/IV PUSH 04/30/17 0900 Potassium Chloride 20 meq 04/28/17 1415 (KCl) Q12HR/PO 04/30/17 0954 Aspirin 81 mg 04/25/17 0900 (Aspirin Chew) DAILY/PO 04/30/17 0955 Vital Signs / I&O Vital Signs Date Time Temp Pulse Resp B/P Pulse Ox O2 Delivery O2 Flow Rate FiO2 04/30/17 11:43 94 21 04/30/17 06:00 111 04/30/17 05:00 107 04/30/17 04:00 98.6 109 20 137/83 95 04/30/17 04:00 112 04/30/17 03:24 96 Nasal Cannula 3.00 04/30/17 03:12 94 Nasal Cannula 3.00 04/30/17 03:00 102 04/30/17 02:00 107 04/30/17 01:00 102 04/30/17 00:26 95 Nasal Cannula 3.00 04/30/17 00:00 98.7 107 18 130/85 97 04/30/17 00:00 96 Nasal Cannula 3.00 04/30/17 00:00 108 04/29/17 23:00 110 04/29/17 22:00 110 04/29/17 21:47 94 Nasal Cannula 3.00 04/29/17 21:00 120 04/29/17 20:00 96 Nasal Cannula 3.00 04/29/17 20:00 99.2 130 22 135/77 96 04/29/17 20:00 114 04/29/17 19:00 112 04/29/17 18:00 115 04/29/17 17:00 108 04/29/17 16:46 96 Nasal Cannula 3.00 04/29/17 16:26 98.0 109 20 149/82 96 04/29/17 16:00 99.9 109 22 147/80 92 Nasal Cannula 3 04/29/17 16:00 110 04/29/17 15:45 105 23 146/74 96 Nasal Cannula 4 04/29/17 15:30 102 22 146/84 98 Simple Mask 10 04/29/17 15:22 98.6 104 22 145/80 88 Simple Mask 10 04/29/17 15:00 110 I/O 04/29/17 04/29/17 04/29/17 04/30/17 04/30/17 04/30/17 07:00 15:00 23:00 07:00 15:00 23:00 Intake Total 2369 ml 1425 ml 2700 ml Output Total 1080 ml 1410 ml 925 ml Balance 1289 ml 15 ml 1775 ml Intake Oral 840 ml 975 ml 1200 ml IV Total 1529 ml 250 ml 1500 ml Other 200 ml Output Urine Total 1000 ml 1360 ml 925 ml Chest Tube Drainage Total 80 ml Estimated Blood Loss 50 ml # Bowel Movements 0 0 0 Physical Exam GENERAL: Well developed, well nourished. No acute distress. HEENT: Jugular venous pressure is normal. CHEST: Lungs clear to auscultation. Pacer site clean, dry, intact, no hematoma or tenderness. CARDIAC: Regular rate and rhythm without S3, S4, or murmur. ABDOMEN: Soft, nontender, no hepatosplenomegaly. Bowel sounds present. EXTREMITIES: No clubbing, cyanosis, or edema. Laboratory Laboratory Tests Test 04/30/17 09:23 White Blood Count 10.4 TH/MM3 Red Blood Count 2.79 MIL/MM3 Hemoglobin 8.1 GM/DL Hematocrit 24.1 % Mean Corpuscular Volume 86.5 FL Mean Corpuscular Hemoglobin 29.0 PG Mean Corpuscular Hemoglobin 33.5 % Concent Red Cell Distribution Width 15.3 % Platelet Count 125 TH/MM3 Mean Platelet Volume 8.9 FL Sodium Level 140 MEQ/L Potassium Level 3.8 MEQ/L Chloride Level 105 MEQ/L Carbon Dioxide Level 26.9 MEQ/L Anion Gap 8 MEQ/L Blood Urea Nitrogen 33 MG/DL Creatinine 1.08 MG/DL Estimat Glomerular Filtration 69 ML/MIN Rate Random Glucose 149 MG/DL Calcium Level 8.3 MG/DL Magnesium Level 2.6 MG/DL Imaging Last 48 hours Impressions Chest X-Ray 04/30/17 0600 Signed Impressions: Service Date/Time: Sunday, April 30, 2017 09:01 - CONCLUSION: 1. Post median sternotomy changes. 2. Minimal left basilar effusion and atelectasis. 3. No pneumothorax identified. Eren Alexander MD Chest X-Ray 04/29/17 1501 Signed Impressions: Service Date/Time: Saturday, April 29, 2017 15:34 - CONCLUSION: 1. New left subclavian bilead pacemaker in good position without pneumothorax. 2. Cardiomegaly. 3. Bibasilar areas of suspected consolidation or atelectasis being worse on the left. Some degree of left effusion needs to be considered. Benny Harmon MD Assessment and Plan Problem List: (1) Complete heart block Assessment and Plan: Stable s/p pacemaker implant 04/29/17. Pacer function normal. Pacer site OK. OK to discharge from my standpoint, one week f/u in our office for incision site and pacer recheck. (2) Coronary artery disease Assessment and Plan: Stable s/p AVR/CABG last week. No recurrent angina. Consider nuclear stress test in 3-4 months to assess for any significant ischemia in the OM territory. Agree with beta yesenia. Consider stopping IV Lasix as patient may be becoming volume depleted. (3) S/P AVR (aortic valve replacement) Assessment and Plan: Stable s/p AVR/CABG. Code Status full code Discussed Condition With patient and Problem Qualifiers (1) Coronary artery disease: Qualified Code: I25.10 - Coronary artery disease involving [place] coronary artery of [place] heart without angina pectoris Grey Cormier MD Apr 30, 2017 13:46
[2017-04-30] MEDS ORDERED: VANCOMYCIN INJ 1,000 MG in SODIUM CHLOR 0.9% 250 ML INJ 250 ML IV ONE (16:00)
[2017-04-30] MEDS: FERROUS SULFATE 325 MG (65 MG ELEMENTAL IRON) TAB PO SCH (16:30)
[2017-04-30] MEDS: SODIUM CHLORIDE 0.9% FLUSH 10 ML FLUSH IV FLUSH PRN (18:24)
[2017-04-30] MEDS: SENNOSIDES 8.6 MG TAB PO SCH (20:45)
[2017-04-30] MEDS: ATORVASTATIN 40 MG TAB PO SCH (20:46)
[2017-04-30] MEDS: METOPROLOL TARTRATE 25 MG TAB PO SCH (20:46)
[2017-05-01] VITALS (23 sets, daily range): BP systolic 104–133; BP diastolic 64–96; PULSE 96–112; RESP 16–19; TEMP 97.8–98.7; O2SAT 92–96
[2017-05-01] MEDS: PANTOPRAZOLE SOD 40 MG DELAYED RELEASE TAB PO SCH (05:35)
[2017-05-01] MEDS: SODIUM CHLOR 0.9% 1000 ML INJ 1,000 ML IV SCH ×2 (05:56→13:56)
[2017-05-01] MEDS: INSULIN ASPART SUPPLEMENTAL SCALE SQ SCH ×2 (06:09→11:00)
[2017-05-01] MEDS: FUROSEMIDE 40 MG/4 ML VIAL IV PUSH SCH (08:06)
[2017-05-01] MEDS: SODIUM CHLORIDE 0.9% FLUSH 10 ML FLUSH IV FLUSH SCH (08:06)
[2017-05-01] MEDS: POLYETHYLENE GLYCOL 17 GM PKG PO SCH (08:06)
[2017-05-01] MEDS: METOPROLOL TARTRATE 25 MG TAB PO SCH (08:07)
[2017-05-01] MEDS: FOLIC ACID 1 MG TAB PO SCH (08:07)
[2017-05-01] MEDS: POTASSIUM CHLORIDE 20 MEQ CONTROLLED RELEASE TAB PO SCH (08:07)
[2017-05-01] MEDS: MULTIVITAMINS/MINERALS THERAPEUTIC TAB PO SCH (08:07)
[2017-05-01] MEDS: DOCUSATE SODIUM 100 MG CAP PO SCH (08:07)
[2017-05-01] MEDS: ASPIRIN 81 MG CHEW TAB PO SCH (08:08)
[2017-05-01] MEDS: FERROUS SULFATE 325 MG (65 MG ELEMENTAL IRON) TAB PO SCH (12:08)
--- NOTE | 2017-05-01 14:26 | EKG ---
Date Performed: 04/30/2017 Time Performed: 13:39:52 PTAGE: 62 years EKG: Sinus tachycardia with PVC(s). Short AR interval Right bundle branch block Inferior infarct - age undetermined Abnormal ECG Compared to PREVIOUS TRACING , the high degree AV block is no longer evident and the sinus tachycardi a is new. Clinical correlation remains important. PREVIOUS TRACIN04/25/2017 09.29 DOCTOR: Kayla Huerta Interpretating Date/Time 05/01/2017 14:24:25
[2017-05-01] MEDS ORDERED: FURO1TAB60 PO (16:30)
[2017-05-01] MEDS ORDERED: FOLI1TAB6 PO (16:30)
[2017-05-01] MEDS ORDERED: METO25TA3 PO (16:30)
[2017-05-01] MEDS ORDERED: HYDR-3516 PO (16:30)
[2017-05-01] MEDS ORDERED: FERR325T20 PO (16:30)
[2017-05-01] MEDS ORDERED: PANT40TA3 PO (16:30)
[2017-05-01] MEDS ORDERED: DOCU1CAP39 PO (16:30)
[2017-05-01] MEDS ORDERED: POTA20TA5 PO (16:30)
--- NOTE | 2017-05-01 16:35 | HHI.DS ---
Discharge Summary Admission Date Apr 24, 2017 at 05:21 Discharge Date: May 01, 2017 Admitting Diagnosis Aortic stenosis CAD HTN Dyspnea chest pain (1) Aortic stenosis due to bicuspid aortic valve Diagnosis: Principal (2) Coronary artery disease Diagnosis: Principal (3) Hypertension Diagnosis: Secondary (4) Blood loss anemia Diagnosis: Secondary (5) Heart bloc atrioventricular Diagnosis: Secondary (6) Complete heart block Diagnosis: Secondary (7) S/P placement of cardiac pacemaker Diagnosis: Principal (8) S/P AVR (aortic valve replacement) Diagnosis: Principal (9) S/P CABG x 1 Diagnosis: Principal Procedures REDO AVR/CABG Pacemaker placement Brief History Subjective/Hospital Course: 62/ male hx of CAD/ prior CABG in 2000. C/o of exertional chest pressure and dyspnea over the past couple of months , + palpitations. Underwent cardiac cath by Dr Mobley 3 vessel [place] disease, patent MCNEIL> LAD totally occluded vein graft to PDA, chronic total occlusion y graft posterolateral branch and distal RCA , mod disease graft to OM / severe mean gradient of 48mmhg PMH: CAD/ BABG 2000, HTN, HLP CBC/BMP: 04/30/17 0923 04/30/17 0923 Significant Findings Laboratory Tests Test 04/29/17 04/30/17 03:50 09:23 Red Blood Count 2.77 MIL/MM3 2.79 MIL/MM3 (4.50-5.90) (4.50-5.90) Hemoglobin 8.1 GM/DL 8.1 GM/DL (13.0-17.0) (13.0-17.0) Hematocrit 24.0 % 24.1 % (39.0-51.0) (39.0-51.0) Platelet Count 94 TH/MM3 125 TH/MM3 (150-450) (150-450) Neutrophils (%) (Auto) 71.0 % (16.0-70.0) Monocytes (%) (Auto) 11.1 % (0.0-8.0) Monocytes # (Auto) 1.2 TH/MM3 (0-0.9) Platelet Estimate LOW (NORMAL) Polychromasia 4.0 % (0.0-1.9) Basophilic Stippling FAINT (NORMAL) Blood Urea Nitrogen 29 MG/DL (7-18) 33 MG/DL (7-18) Estimat Glomerular Filtration 76 ML/MIN (>89) 69 ML/MIN (>89) Rate Calcium Level 8.2 MG/DL 8.3 MG/DL (8.5-10.1) (8.5-10.1) Aspartate Amino Transf 175 U/L (15-37) (AST/SGOT) Alanine Aminotransferase 208 U/L (12-78) (ALT/SGPT) Total Protein 5.6 GM/DL (6.4-8.2) Albumin 2.9 GM/DL (3.4-5.0) Random Glucose 149 MG/DL (74-106) Magnesium Level 2.6 MG/DL (1.5-2.5) Imaging Last Impressions Chest X-Ray 04/30/17 0600 Signed Impressions: Service Date/Time: Friday, April 30, 2017 09:01 - CONCLUSION: 1. Post median sternotomy changes. 2. Minimal left basilar effusion and atelectasis. 3. No pneumothorax identified. Eren Alexander MD PE at Discharge chest - CTA COR - RRR ABD - soft, NT wound - dry and intact Hospital Course surgery: 04/24 REDO sternotomy for REDO CABG x 1 , AVR with a 25 Intuity tissue valve, SVG to PDA, EVH (right leg), VICKI pump time 226min, 3000cc crystalloid , 1000cc cell saver, EBL 2000cc, s/p one pack of PLT, cryo extubated after surgery 04/25 pt had some tachy ankush arrhythmia last pm RBBB 3rd degree HB, placed on EPI post op , and Dopamine + 6 kg from surgery , IV bumex given weaning off Epi gtt, continue dopamine for now leave pt in CVICU for now will need aggressive pulm toileting, wean 02 as tolerated 04/26 Marginal oxygenation on 80% Diurese and incentive spirometry Monitor renal status 04/27 Doing better this am. Had significant episodes of long conduction pauses yesterday. Appreciate cardiology and Hydropress Operator input Weaning Oxygen as tolerated 04/28 remains on Isuprel gtt, HR 100, BP stable chest tube drained 200cc/ 12 hrs episode of bradycardia last pm await re-eval by Dr Elliott 04/29 HR improved for pacer placement today chest tube removed without difficulty on 4 liter nasal cannula 04/30 HR 110/ sinus tach discussed with dr solis / will start low dose BB s/p DDD pacer 60/130/ start prophy antibiotics x 5 days No BM since surgery continue diuresis , still up 10kg / will need to dc on po lasix eval for dc in am wean off 02 Pt Condition on Discharge: Good Discharge Disposition: Disch w/ Home Health Serv Discharge Instructions DIET: Follow Instructions for: Heart Healthy Diet Activities you can perform: Weight Bearing as Luis Eduardo, Shower Only-No Bath Activities to avoid: Lifting/Bending, Driving Follow up Referrals: Cardiology with Grey Solis MD Cardiology PCP Follow-up with Sal Ray MD Surgical with Elizabeth Loomis MD New Orders: 2D ECHO - 3 Weeks X-RAY CHEST PA & LAT - 3 Weeks New Medications: Cephalexin (Keflex) 500 Mg Cap 500 MG PO Q8H Infection #15 Ref 0 CAP Furosemide (Lasix) 40 Mg Tab 40 MG PO DAILY Blood Pressure Management #7 Ref 0 TAB Docusate Sodium (Dok) 100 Mg Cap 100 MG PO BID Constipation Days 28 Ref 0 CAP Ferrous Sulfate (Ferosul) 325 Mg Tablet 325 MG PO BID@12,17 Nutritional Supplement #60 Ref 1 TAB Folic Acid (Folic Acid) 1 Mg Tablet 1 MG PO DAILY Nutritional Supplement #30 Ref 1 TAB Hydrocodone-Acetaminophen (Hydrocodone-Acetaminophen) 5-325 mg Tab 1 TAB PO Q4H PRN PAIN 1-3 #20 Ref 0 TAB Metoprolol Tartrate (Metoprolol Tartrate) 25 Mg Tab 25 MG PO Q12HR Blood Pressure Management #60 Ref 3 TAB Pantoprazole (Pantoprazole) 40 Mg Tab 40 MG PO DAILY@06 Prevent Stress Ulcers #28 Ref 0 TAB Potassium Chloride Microencaps (Potassium Chloride Microencaps) 20 Meq Tab 20 MEQ PO Q12HR Nutritional Supplement #14 Ref 0 TAB Continued Medications: Aspirin DR (Aspirin EC) 81 Mg Tabdr 81 MG PO DAILY Ref 0 TAB Atorvastatin (Lipitor) 40 Mg Tab 40 MG PO HS Cholesterol Management Ref 0 TAB Fish Oil-Cholecalciferol (Fish Oil + D3) 1,200-1,000 Mg-Unit Cap 1 CAP PO DAILY Nutritional Supplement Ref 0 CAP Multiple Vitamin (Multiple Vitamin) 1 Tab 1 TAB PO DAILY Nutritional Supplement Ref 0 TAB Discontinued Medications: Hydrocodone-Acetaminophen (Hydrocodone-Acetaminophen) 5-325 mg Tab 1 TAB PO Q4H PRN PAIN Ref 0 TAB Mupirocin Nasal Oint (Bactroban Nasal Oint) 2% Oint 1 APPLIC EACH NARE TID For 5 days. Mgmt Bacterial Infection Ref 0 TUBE Elizabeth Loomis MD May 01, 2017 16:35
== END 2017-05-01 17:19 | disposition home health service (06) | DRG 219 ==
LOC: HSDI 04-24 05:21 → HCVR 04-24 17:00 → HCIN 04-29 16:36
PROVIDERS: ADMIT Thoracic Surgery (Cardiothoracic Vascular Surgery); ATTEND Thoracic Surgery (Cardiothoracic Vascular Surgery)
PROC: B246ZZ4 Ultrasonography of Right and Left Heart, Transesophageal (ICD-10-PCS; 2017-04-24)
PROC: 5A1221Z Performance of Cardiac Output, Continuous (ICD-10-PCS; 2017-04-24)
PROC: 5A1935Z Respiratory Ventilation, Less than 24 Consecutive Hours (ICD-10-PCS; 2017-04-24)
PROC: 30233N1 Transfusion of Nonautologous Red Blood Cells into Peripheral Vein, Percutaneous Approach (ICD-10-PCS; 2017-04-24)
PROC: 6A550Z2 Pheresis of Platelets, Single (ICD-10-PCS; 2017-04-24)
PROC: 02RF08Z Replacement of Aortic Valve with Zooplastic Tissue, Open Approach (ICD-10-PCS; principal; 2017-04-24 07:10)
PROC: 021009W Bypass Coronary Artery, One Artery from Aorta with Autologous Venous Tissue, Open Approach (ICD-10-PCS; 2017-04-24 07:10)
PROC: 06BP0ZZ Excision of Right Saphenous Vein, Open Approach (ICD-10-PCS; 2017-04-24 07:10)
PROC: 02HK3JZ Insertion of Pacemaker Lead into Right Ventricle, Percutaneous Approach (ICD-10-PCS; 2017-04-29)
PROC: 02H63JZ Insertion of Pacemaker Lead into Right Atrium, Percutaneous Approach (ICD-10-PCS; 2017-04-29)
PROC: 0JH606Z Insertion of Pacemaker, Dual Chamber into Chest Subcutaneous Tissue and Fascia, Open Approach (ICD-10-PCS; 2017-04-29)
DX: Q23.1 Congenital insufficiency of aortic valve (principal); J96.01 Acute respiratory failure with hypoxia; I44.2 Atrioventricular block, complete; I25.82 Chronic total occlusion of coronary artery; N17.9 Acute kidney failure, unspecified; I25.810 Atherosclerosis of coronary artery bypass graft(s) without angina pectoris; D69.6 Thrombocytopenia, unspecified; I49.5 Sick sinus syndrome; E78.5 Hyperlipidemia, unspecified; I10 Essential (primary) hypertension; M48.00 Spinal stenosis, site unspecified; Z87.891 Personal history of nicotine dependence; I45.10 Unspecified right bundle-branch block; Z82.49 Family history of ischemic heart disease and other diseases of the circulatory system; D72.829 Elevated white blood cell count, unspecified; D64.89 Other specified anemias; R79.89 Other specified abnormal findings of blood chemistry
CPT/HCPCS: 33208; 36430; 71010; 71020; 76937; 80048; 80053; 80074; 82550; 82552; 82805; 82948; 83010; 83615; 83735; 84100; 85007; 85014; 85018; 85025; 85027; 85060; 85384; 85610; 85730; 86850; 86900; 86901; 86920; 86965; 87640; 87641; 88305; 88311; 93005; 93318; 94002; 94003; 94150; 94640; 94664; 94667; 94668; C1785; C1898; C9399; J0131; J0171; J0360; J0461; J0690; J1265; J1644; J1815; J1817; J1940; J2150; J2250; J2405; J2710; J2720; J2930; J3010; J3370; J3411; J3475; J3480; J7030; J7050; J7060; J7120; J7613; P9016; P9035; P9047; Q9967